=== PATIENT | female | born 1990 | race Asian ===

== ENCOUNTER 2024-03-05 09:45 | Outpatient (REF) | payer OTHER, SELFPAY ==
[2024-03-05 16:47] LABS: Urine Cytology See Pathology rpt
--- OUTSIDE RECORDS SUMMARY | 2024-03-05 17:54 | XMS_ITS | Clinical Summary ---
Author Organization [facility] Address [address] [place] [address] Care Team Providers Care Flight Radio Officer Name Role Phone Keya Bhat NP Primary Care Provider + [phone] Source Comments PLEASE NOTE, if this patient [...] complication, without long-term current use of insulin ([facility]) 1 Each by miscellaneous route every 14 (fourteen) days 2 Kit 12/22/19 23 Active gabapentin (NEURONTIN) 300 mg capsuleIndications :Diabetic mononeuropathy associated with type 2 diabetes mellitus ([facility]) Take 1 Capsule by mouth 3 (three) [...] complication, without long-term current use of insulin ([facility]) Take 1 Tablet by mouth 2 (two) [...] months 06/2022: see at [facility] with , [facility] UTI prevention, imagining to r/o structural abnormalities, recommended then follow up Encounter for gynecological examination with Papanicolaou smear of cervix 03/03/2021 Overview (03/03/2021): PAP DONE 02/28/21 Negative for intraepithelial lesion or malignancy. HPV negative Exposure to COVID-19 virus 03/01/2020 Seasonal allergic rhinitis 07/28/2019 Controlled type 2 diabetes m ellitus without complication, without long-term current use of insulin ([facility]) 09/03/2017 Hematuria and rash 04/26/2017 Overview [...] ) Advise avoid NSAIDs Henoch-Schonlein purpura nephritis ([facility]) 10/2017 Overview (02/13/2017): No tx at this time by rheumatology unless has another flair- see notes in the chart Henoch-Schonlein purpura ([facility]) 01/31/2017 Positive PPD, treated 12/23/2014 Overview (12/23/2014): Pt was treated in [place] with Rifampin for 4 months Dyslipidemia (high LDL; low HDL) 10/13/2014 S/P laparoscopic appendectomy 08/10/2014 Overview (08/10/2014): Done 08/01 at [facility] by Dr Eliazar Nicholson Pap smear [...] Description 01/29/2024 1:20 PM EST Office Visit [facility] [place] [address] Keya Bhat NP Tiwari, Roshni Right middle lobe pulmonary nodule (Primary Dx); Palpitation; Recurrent UTI 01/29/2024 Travel 12/27/2023 10:20 AM EST Telemedicine Visit [place] [address] Keya Bhat NP Tiwari, Roshni Controlled type 2 diabetes mellitus without complication, without long-term current use of insulin ([facility]) (Primary Dx); Dyslipidemia (high LDL; low HDL) 12/18/2023 Interim Notes [facility] [place] [address] Dora Tellez PA-C Controlled type 2 diabetes mellitus without complication, without long-term current use of insulin ([facility]) from Last 3 Months Immunizations Name [...] 06/24/2022 06/24/2012, 06/24/2012, 01/05/2012, Additional history exists [id number] ( season) 2023 01/24/2022, 07/06/2020, 05/31/2020 Imm-Influenza [...] complication, without long-term current use of insulin ([facility]) Dyslipidemia (high LDL; low HDL) MICROALBUMIN/CREATINI NE RATIO, URINE, RANDOM Routine 09/28/2023 4:11 PM EDT Controlled type 2 diabetes mellitus without complication, without long-term current use of insulin ([facility]) EYE EXAM 03/09/2023 3:00 AM EST COMPREHENSIVE METABOLIC PANEL Routine 12/21/2022 4:21 PM EST Controlled type 2 diabetes mellitus without complication, without long-term current use of insulin ([facility]) LIPID PANEL Routine 12/21/2022 4:21 PM [...] A1C 7.6(H) <5.7 % of total Hgb [employer] Comment: For someone without known diabetes, a [...] AM EST 12/31/2023 8:45 AM EST Narrative [facility] [employer] - 01/01/2024 4:20 AM EST FASTING:YES us Keya Bhat NP LAB - BLOOD DRAW Final Resul t [facility] [employer] [address] [place] [address], [employer] [address] [place] [phone] * MICROALBUMIN/CREATININE RATIO, URINE, RANDOM (09/28/2023 4:11 PM EDT) CREATININE, RANDOM URINE 119 20 - 275 mg/dL [employer] MICROALBUMIN 3.5 mg/dL [facility] [employer] Comment: Reference Range Not established MICROALBUMIN/CREA TININE RATIO, RANDOM URINE 29 <30 mg/g creat [employer] Comment: The ADA defines abnormalities in albumin [...] PM EDT 09/28/2023 4:11 PM EDT Narrative [employer] - 10/04/2023 2:37 AM EDT FASTING:NO us Keya Bhat NP LAB - NO BLOOD DRAW Final Re sult [employer] [address] [place] [address], [employer] [address] [phone] * EYE EXAM (03/09/2023 3:00 AM EST) 03/09/2023 3:00 AM EST us Keya Bhat NP OTHER Final Result * (ABNORMAL) LIPID PANEL (12/21/2022 4:21 PM EST) CHOLESTEROL, TOTAL 179 <200 mg/dL [employer] [facility] HDL CHOLESTEROL 40(L) > OR = 50 mg/dL [employer] TRIGLYCERIDES 222(H) <150 mg/dL [employer] Comment: If a non-fasting specimen was collected, consider repeat triglyceride testing on a fasting specimen if clinically indicated. Sloane et al. J. of Clin. Lipidol. 2015;9:129-169. LDL-CHOLESTEROL 105(H) 99 mg/dL (calc) [employer] Comment: Reference range: <100 Desirable range <100 mg/dL for primary prevention; ?? <70 mg/dL for patients with CHD or diabetic patients with > or = 2 CHD risk factors. LDL-C is now calculated using the Quinn calculation, which is a validated novel method providing better accuracy than the Friedewald equation in the estimation of LDL-C. Kings SMITH et al. EMILY. 2013;310(19): 3720-6168 (http://education.[employer]otive/faq/ZSZ550) CHOL/HDLC RATIO 4.5 <5.0 (calc) [employer] NON-HDL CHOLESTEROL 139(H) <130 mg/dL (calc) [employer] Comment: For patients with diabetes plus 1 major ASCVD risk factor, treating to a non-HDL-C goal of <100 mg/dL (LDL-C of <70 mg/dL) is considered a therapeutic option. Blood Blood / Unknown 12/21/2022 4 :21 PM EST 12/21/2022 4:22 PM EST [facility] LAB - BLOOD DRAW Final Result [employer] [address] [place] [address], [employer] [address] [place] [phone] * (ABNORMAL) COMPREHENSIVE METABOLIC PANEL (12/21/2022 4:21 PM EST) Pathologist [facility] GLUCOSE 89 65 - 99 mg/dL [employer] Comment: ?Fasting reference interval UREA NITROGEN (BUN) 10 7 - 25 mg/dL [employer] CREATININE (blood) 0.61 0.50 - 0.97 mg/dL [employer] EGFR 122 > OR = 60 mL/min/1. 73m2 [employer] BUN/CREATININE RATIO SEE NOTE: [employer] Comment: ?? Not Reported: BUN and Creatinine are within ?? reference range. ? SODIUM 136 135 - 146 mmol/L [employer] POTASSIUM 4.3 3.5 - 5.3 mmol/L [employer] CHLORIDE 102 98 - 110 mmol/L [employer] CARBON DIOXIDE 24 20 - 32 mmol/L [employer] CALCIUM 9.7 8.6 - 10.2 mg/dL [employer] PROTEIN, TOTAL 8.1 6.1 - 8.1 g/dL [employer] ALBUMIN 4.4 3.6 - 5.1 g/dL [employer] GLOBULIN 3.7 1.9 - 3.7 g/dL (calc) [employer] ALBUMIN/GLOBULI N RATIO 1.2 1.0 - 2.5 (calc) [employer] BILIRUBIN, TOTAL 0.5 0.2 - 1.2 mg/dL [employer] ALKALINE PHOSPHATASE 65 31 - 125 U/L [employer] AST 37(H) 10 - 30 U/L [employer] ALT 84(H) 6 - 29 U/L [employer] Blood Blood / Unknown 12/21/2022 4 :21 PM EST 12/21/2022 4:22 PM EST [facility] LAB - BLOOD DRAW Edited Result - Final [facility] [address] [address], [employer] [address] [place] [phone] * THINPREP PAP & HPV MRNA E6/E7 RFLX HPV 16,18/[address]/NG (02/28/2021 9:22 AM EST) CHLAMYDIA TRACHOMATIS RNA, TMA NOT DETECTED NOT DETECTED [employer] NEISSERIA GONORRHOEAE RNA, TMA NOT DETECTED NOT DETECTED [employer] COMMENT [employer] CLINICAL INFORMATION See Note [employer] Comment:Routine exam LMP See Note [employer] Comment:[id number] PREV. PAP [employer] PREV. BX See Note [employer] Comment:NONE GIVEN SOURCE See Note [employer] Comment:Cervix STATEMENT OF ADEQUACY See Note [employer] Comment: Satisfactory for evaluation. Endocervical/transformation zone component present. INTERPRETATION/RESU LT See Note [employer] Comment:Negative for intraep ithelial lesion or malignancy. STICK WELDER See Note [facility] Comment: KF, CT(ASCP) CT screening location: [address] ??[address] REVIEW STICK WELDER See Note [employer] Comment: MSM, CT(ASCP) CT screening location: [address] ??[address] COMMENT [facility] HPV MRNA E6/E7 Not Detected Not Detected [facility] Comment: Methodology: Senior Product Manager-Mediated Amplification This assay detects E6/E7 viral messenger RNA (mRNA) from 14 high-risk HPV types (16,18,31,33,35,39,45,51,52,56,58,59,66,68). The analytical performance characteristics of this assay have been determined by [employer]. The modifications have not been cleared or approved by the FDA. This assay has been validated pursuant to the CLIA regulations and is used for clinical purposes. For additional information, please refer to http://Touchbase.Meteor/faq/YSA931p3 (This link if provided for information/ educational purposes only.) CYTOLOGY Cervix uteri structure / Unknown 02/28/2021 9:22 AM EST 03/01/2021 6:25 AM EST Narrative [facility] - 03/03/2021 11:53 AM EST EXPLANATORY [...] test SurePath(TM) specimens have been determined by [employer]. The modifications have not been cleared or approved by the FDA. This assay has been validated pursuant to the CLIA regulations and is used for clinical purposes. For additional information, please refer to https://Touchbase.Meteor/faq/IZH459 (This link is being provided for information/ educational purposes only.) Eli MALDONADO LAB - NO BLOOD DRAW Final R esult [facility] [address] [address], [facility] [address] [address] * HIV-1 & HIV-2 ANTIBODIES (04/01/2019 11:15 AM EST) HIV 1 AND 2 ANTIBODY SCREEN NEGATIVE NEGATIVE [facility] Comment: This assay is a 4th generation [...] AM EST 04/01/2019 11:31 AM EST Narrative [facility] - 04/01/2019 6:50 PM EST [facility] [employer], [place] [address] [employer] Supervisor - Josefina Peterson MD PT ID [id number] ORD# [id number] Eli MALDONADO LAB - BLOOD DRAW Final Resu lt Performing Organization Address City/[facility] de Phone Number [address] [address], * (ABNORMAL) HEPATITIS A,B,C PANEL (10/16/2013 6:38 PM EDT) Pathologist [facility] HEPATITIS B SURFACE ANTIBODY POSITIVE(A) NEGATIVE [facility] HEPATITIS B SURFACE ANTIGEN NEGATIVE NEGATIVE [facility] HEPATITIS C VIRUS ANTIBODY NEGATIVE NEGATIVE [facility] HEPATITIS B CORE ANTIBODY NEGATIVE NEGATIVE [facility] HEPATITIS A ANTIBODY TOTAL POSITIVE(A) NEGATIVE [facility] Blood specimen (specimen) Blood / Unknown 10/16/2013 6:38 PM EDT 10/16/2013 6:57 PM EDT Narrative [facility] - 10/16/2013 10:16 [place] [address] PT ID [id number] ORD# [id number] Fernando Mcbride MD LAB - BLOOD DRAW Edited Result - Final [facility] [address] [place] [address], from Last 3 Months or Most Recently Relevant to Health Maintenance Insurance [employer] Member Subscriber Plan / Payer (Ef fective 2023-Present) Name:PerlaBry garciaa Relation to Subscriber:Self Name:Greta Dove Payer ID:[id number] Group ID:Not on file Type:Indemnity Address: [address] [address] [place] [address] Care Teams Flight Radio Officer Relationship Specialty Start Date End Date Keya Bhat NP [address] [place] [address] PCP - General Internal Medicine 10/04/21
== END 2024-03-05 09:46 | disposition home or self-care (01) ==
LOC: HO.LNP 09:45
PROVIDERS: Visit Provider Nurse Practitioner Family
DX: R10.9 Unspecified abdominal pain (principal); Z13.9 Encounter for screening, unspecified
CPT/HCPCS: 88112

== ENCOUNTER 2024-03-05 09:48 | Outpatient (AMB) | payer OTHER, SELFPAY ==
--- NOTE | 2024-03-05 09:52 | A.OFFVIS_ITS ---
Intake Visit Reasons: Recurrent UTI's Intake Note: New Patient is present for Recurrent UTI/Hematuria Any Urology Med: Antibiotic Allergy: Blood Thinner: PVR: 0ml Pattern Chart Writer Required: No Internal Review And Audit Compliance: Internal Review And Audit Compliance Present Accompanied by: Spouse Allergies No Known Allergies Allergy (Verified 03/05/24 09:53) HPI Comments Details: Greta is a 34-year-old Raquel speaking female patient who was accompanied by her significant other at today's office visit. She has a past medical history of hyperlipidemia type 2 diabetes, seasonal allergies, henoch-schonlein purpura nehritis, and abnormal liver enzymes. She presents to the office today as a new patient for recurrent urinary tract infections as well as bilateral flank pain she has been experiencing. In discussion with the patient and her significant other she reports following up with her PCP for ongoing lower urinary tract symptoms she had been experiencing and has completed multiple antibiotic therapies for urinary tract infections. However she reports never having had urinalysis completed before. She reports symptoms have been present for quite some time. In office urinalysis results reviewed with the patient today. 3+ microscopic hematuria otherwise within normal limits. She does report to be currently on her menses. We discussed at length potential causes of these symptoms patient was experiencing. We discussed obtaining retroperitoneal ultrasound for further assessment evaluation. We discussed importance of management and diabetes for improvement in lower urinary tract symptoms as well as overall health and well-being. We discussed bladder triggers/irritants. She denies nocturia, hematuria, dysuria, foul smelling urine, changes to urinary stream, fever, and or chills. She otherwise offers no other issues or concerns at this time. [facility] Medical History Right middle lobe pulmonary nodule Recurrent UTI Seasonal allergic rhinitis Controlled type 2 diabetes mellitus with complication, without long-term current use of insulin Rash Hematuria Henoch-Schonlein purpura nephritis Positive PPD, treated Dyslipidemia Immune to hepatitis B Abnormal liver enzymes Surgical History History of laparoscopic appendectomy Review of Systems Const All systems reviewed & are unremarkable except as noted in HPI and below Physical Exam Const General: cooperative, healthy appearing, comfortable, no acute distress, well developed, alert and awake Nutritional Appearance: overweight Orientation/consciousness: patient oriented x3 Limitations: no limitations and language barrier HEENT Head: Yes normal to inspection, Yes normocephalic and Yes atraumatic Ears: hearing grossly normal bilaterally Eyes General: appearance normal, both eyes and all related structures Neck Neck: Yes normal visual inspection and Yes trachea midline Chest Chest palpation & inspection: normal inspection of the chest Resp Effort & Inspection: normal respiratory effort and able to speak in complete sentences Cardio Rate: regular rate GI Inspection: Yes normal to inspection General: Yes no CVA tenderness Back/Spine/Pelvis Back: no CVA tenderness Skin General skin exam: no rashes or lesions noted Neuro General: patient oriented x3 Extrem General: Yes normal to inspection Psych Appearance: grossly normal and well kempt Mental Status: mental status grossly normal Speech and movement: Normal speech and movement present and Clear speech present Affect: normal affect Attitude: cooperative Thought process: Normal thought process present Thought content: Normal thought content present Insight: Fair insight present (Psych) Judgement: Fair judgement present (Psych) Office Procedures Post Void Residual Post Residual Void Post Void Residual (PVR): 0 [id number]-[id number] Void Residual by ultrasound Results AMB Urinalysis, Automated UA Leukoctes 0 Spike/uL Last Edit by Jovanna Oliva [facility] on 03/05/24 10:02 UA Nitrite Negative Last Edit by Jovanna Oliva [facility] on 03/05/24 10:02 UA Urobilinogen 0.2 mg/dL Last Edit by Jovanna Oliva [facility] on 03/05/24 10:0 2 UA Protein 15 mg/dL Last Edit by Jovanna Oliva [facility] on 03/05/24 10:02 UA pH 6.0 Last Edit by Jovanna Oliva [facility] on 03/05/24 10:02 UA Blood 200 Nas/uL Last Edit by Jovanna Oliva [facility] on 03/05/24 10:02 UA Specific [place] 1.015 Last Edit by Jovanna Oliva [facility] on 03/05/24 10: 02 UA Ketone Negative Last Edit by Jovanna Oliva [facility] on 03/05/24 10:02 UA Bilirubin 0 mg/dL Last Edit by Jovanna Oliva [facility] on 03/05/24 10:02 UA Glucose 0 mg/dL Last Edit by Jovanna Oliva [facility] on 03/05/24 10:02 Results Reviewed Results Reviewed: Laboratory Last Values Urine pH (Auto) 6.0 03/05/24 09:54 Specific [place] (Auto) 1.015 03/05/24 09:54 Urine Protein (Auto) 15 mg/dL 03/05/24 09:54 Glucose (UA)(Auto) 0 mg/dL 03/05/24 09:54 Urine Ketones (Auto) Negative 03/05/24 09:54 Urine Blood (Auto) 200 Nas/uL 03/05/24 09:54 Urine Nitrite (Auto) Negative 03/05/24 09:54 Urine Bilirubin (Auto) 0 mg/dL 03/05/24 09:54 Urine Urobilinogen (Auto) 0.2 mg/dL 03/05/24 09:54 Leukocyte Esterase (Auto) 0 Spike/uL 03/05/24 09:54 Assessment & Plan Assessment & Plan (1) Flank pain: Code(s): R10.9 - Unspecified abdominal pain Category: Medical (2) Recurrent urinary tract infection: Code(s): N39.0 - Urinary tract infection, site not specified Category: Medical Plan In office urinalysis results reviewed with the patient today; as noted above; w ill send for urine cytology. We discussed importance of adequate hydration relation to lower urinary tract symptoms as well as overall health and well-being. We discussed importance of managing diabetes for improvement lower urinary tract symptoms as well as overall health and well-being. We discussed bladder triggers/irritants. Will obtain retroperitoneal ultrasound for further assessment evaluation. We discussed potential for near future in office cystoscopy for further assessment evaluation. We discussed further treatment options of recurrent urinary tract infections as well as risks and benefits of these interventions. Follow-up in 1-3 months with imaging to be completed prior; or sooner with any issues, concerns, and or questions. Orders: Orders US retroperitoneal comp Today N39.0 - Urinary tract infection, site not specified, R10.9 - Unspecified abdominal pain AMB Urinalysis Automated Today Z13.9 - Encounter for screening, unspecified AMB Post Void Residual by ultrasound Today N39.0 - Urinary tract infection, site not specified Patient Instructions: The patient had an opportunity to ask questions regarding the treatment plan. All questions were answered. Physical exam, labs, and imaging were discussed and reviewed in detail. As well as risks, benefits, and discussion of treatment choices. No major barriers to understanding were identified. The patient expressed understanding and agreement with the above treatment plan. The patient was made aware they should contact our office by phone for worsening of their current condition, the appearance of new symptoms, or with any questions or concerns. Compliance is encouraged with any medications and follow up testing that is ordered. It is a privilege to be allowed the opportunity to participate in? your urological care.? Again, if you have any questions or concerns If you have any questions or concerns please do not hesitate to contact me. The office is [phone]. This note is constructed using voice recognition software. While every effort has been made to ensure accuracy sap developer errors may have been included. Yours sincerely, SARAH Sky Coding Level of Care Code New Pt Level 3 (67706) Diagnoses Flank pain R10.9 Recurrent urinary tract infection N39.0 CPT Codes Post Residual Void - PVR CPT Code: 14403-Brbq Void Residual by ultrasound ([id number])
--- OUTSIDE RECORDS SUMMARY | 2024-03-05 11:34 | XMS_ITS | Clinical Summary ---
Author Organization [facility] Address [address] [place] [address] Care Team Providers Care Fiberglass Finisher Name Role Phone Keya Bhat NP Primary Care Provider + [phone] Source Comments PLEASE NOTE, if this patient is a minor, it may be UNLAWFUL to discuss sensitive information that is contained in these records (such as FAMILY PLANNING, MENTAL HEALTH or SUBSTANCE ABUSE) with the minor patient's parent or other person without the patient's specific authorization.[facility] Allergies No known active allergies Medications blood-glucose meter monitoring kitIndications:Pre diabetes Pt is Diabetic. 73.03 1 Each 06/04/19 19 Active fluticasone propionate (FLONASE) 50 mcg/actuation nasal sprayIndications:S easonal allergic rhinitis, unspecified trigger SPRAY 2 SPRAYS INTO EACH NOSTRIL TWICE DAILY. 48 mL 10/20/19 20 Active loratadine (CLARITIN) 10 mg tabletIndications: Environmental allergies Take 1 Tablet by mouth once daily as needed for allergies 30 Tablet 3 08/04/19 21 Active betamethasone dipropionate (DIPROLENE) 0.05 % ointment APPLY TO LEGS TWICE DAILY FOR 2 WEEKS, BREAK 1 WEEK, REPEAT 04/29/19 22 Active ibuprofen 800 mg tabletIndications: Viral syndrome Take 1 Tablet by mouth 3 (three) times daily as needed for fever, headaches or pain 30 Tablet 07/20/19 22 Active meclizine 25 mg chewable tabletIndications: Dizziness Place 1 Tablet into mouth, chew and swallow 3 (three) times daily as needed for nausea 40 Tablet 08/20/19 22 Active blood sugar diagnostic (FREESTYLE LITE STRIPS) stripsIndications: Prediabetes USE ONCE DAILY TO CHECK BLOOD SUGAR 100 Each 1 12/07/19 23 Active flash glucose sensor (FREESTYLE CHIO 14 DAY SENSOR) kitIndications:Con trolled type 2 diabetes mellitus without complication, without long-term current use of insulin ([facility]) 1 Each by miscellaneous route every 14 (fourteen) days 2 Kit 12/22/19 23 Active gabapentin (NEURONTIN) 300 mg capsuleIndications :Diabetic mononeuropathy associated with type 2 diabetes mellitus ([facility]) Take 1 Capsule by mouth 3 (three) times daily for 30 days 90 Capsule 03/23/19 24 Active minoxidiL (ROGAINE) 2 % external solutionIndication s:Hair loss Apply topically 2 (two) times daily for 30 days Use for 4 month max 60 mL 3 06/22/19 24 Active atorvastatin (LIPITOR) 20 mg tabletIndications: Medication refill Take 1 Tablet by mouth once daily 90 Tablet 1 08/08/19 24 Active levonorgestreL-eth inyl estrad (ALTAVERA, 28,) 0.15-0.03 mg per tabletIndications: Medication refill Take 1 Tablet by mouth once daily 90 Tablet 1 08/08/19 24 Active SITagliptin phos-metformin (JANUMET) 50-1,000 mg per tabletIndications: Controlled type 2 diabetes mellitus without complication, without long-term current use of insulin ([facility]) Take 1 Tablet by mouth 2 (two) times daily with a meal TAKE 1 TABLET BY MOUTH TWICE DAILY WITH FOOD 180 Tablet 3 12/27/19 24 Active metFORMIN (GLUCOPHAGE) 1,000 mg tablet Take 1 Tablet by mouth 2 (two) times daily with a meal 180 Tablet 01/02/20 24 Active Active Problems Problem Noted Date Diagnosed Date Right middle lobe pulmonary nodule 01/29/2024 Overview (01/29/2024): 05/2022: seen on right middle lobe ct scan measuring 4 mm Recurrent UTI 06/22/2022 Overview (07/17/2022): 07/11/22: discussed supportive care with cranberry extract and methenamine. . For urgency and frequency & feelings of incomplete bladder emptying disuccsedded anticholinergics or beta agonist, pt would like to hold off. Reinforced lifestyle. F/U 6 months 06/2022: [facility] with , [facility] UTI prevention, imagining to r/o structural abnormalities, recommended then follow up Encounter for gynecological examination with Papanicolaou smear of cervix 03/03/2021 Overview (03/03/2021): PAP DONE 02/28/21 Negative for intraepithelial lesion or malignancy. HPV negative Exposure to COVID-19 virus 03/01/2020 Seasonal allergic rhinitis 07/28/2019 Controlled type 2 diabetes m ellitus without complication, without long-term current use of insulin ([facility]) 09/03/2017 Hematuria and rash 04/26/2017 Overview (04/27/2017): Renal and transpalnt 04-23-17 Purpuric rash and hematuria, status post renal biopsy, based on the renal biopsy, she has igA domintant glomerulo patite, which is consisitent with mild henochschonlen purpura (HSP) without current inflammatory activity. There was also tubular injury which was moderate with prominent distention of the tubules which could be due to possible urinary tract obstruction/possibility of tubular calcium/phosphate deposition . There was no paraprotein deposition disease and there was no acute interstitial disease , there was no glomerulosclerosis and tubular atrophylinterstitial fibrosis was 10 % without and crescents. Fatigue and rash due to HSP ( HenochSchonlein Purpura and it is mild ) Advise avoid NSAIDs Henoch-Schonlein purpura nephritis ([facility]) 10/2017 Overview (02/13/2017): No tx at this time by rheumatology unless has another flair- see notes in the chart Henoch-Schonlein purpura ([facility]) 01/31/2017 Positive PPD, treated 12/23/2014 Overview (12/23/2014): Pt was treated in [place] with Rifampin for 4 months Dyslipidemia (high LDL; low HDL) 10/13/2014 S/P laparoscopic appendectomy 08/10/2014 Overview (08/10/2014): Done 08/01 at [facility] by Dr Eliazar Nicholson Pap smear for cervical cancer screening 01/17/20 Overview (01/16/2014): 11/20/13: NIL NO ECC's; per guidelines routine screening Next pap due: 11/2016(age 26yr)01/16/14 * pt does have elevated LFT's no etiology yet Immune to hepatitis B 12/25/2013 Overview (12/25/2013): Immune to hep B by blood test 10/16/2013 Abnormal liver enzymes 10/16/2013 Overview (02/03/2014): Had an Ultrasound done on 01/23/2014 Steosis Resolved Problems Problem Noted Date Diagnosed Date Resolved Date Strep pharyngitis 04/04/2017 12/03/2017 Overview (04/04/2017): Positive Encounters Date Type Department Care Team Description 01/29/2024 1:20 PM EST Office [place] [address] Keya Bhat NP Tiwari, Roshni Right middle lobe pulmonary nodule (Primary Dx); Palpitation; Recurrent UTI 01/29/2024 Travel 12/27/2023 10:20 AM EST Telemedicine Visit [facility] [place] [address] Keya Bhat NP Tiwari, Roshni Controlled type 2 diabetes mellitus without complication, without long-term current use of insulin ([facility]) (Primary Dx); Dyslipidemia (high LDL; low HDL) 12/18/2023 Interim [place] [address] Dora Tellez PA-C Controlled type 2 diabetes mellitus without complication, without long-term current use of insulin ([facility]) from Last 3 Months Immunizations Name Administration Dates Next Due Flu, Preservative Free 12/21/2022,2021,11/20/2019,2018,12/03/2017,10/02/2016 Hep B, Adult/Adol (ENERGIX/RECOMBIVAX) 11/24/2013 MODERNA COVID-19 VACCINE BIV ALENT, BLUE CAP, 6M+ 01/24/2022 Moderna COVID-19 Vaccine, re d cap blue label, 12+ Primary Series 07/06/2020,05/31/2020 TDAP 06/24/2012,06/24/2012 Td(adult),2 Lf tetanus toxoid,preservative free 01/05/2012,01/05/2012 Family History Medical History Relation Name Comments Diabetes Mother Hypertension Mother Relation Name Status Comments Brother Alive Father Alive Mother Alive Sister Alive Social History Tobacco Use Types Packs/Day Years Used Date Smoking Tobacco: Never Smokeless Tobacco: Never Tobacco Cessation:Counseling Given: Not Answered Alcohol Use Standard Drinks/Week Comments No 0 (1 standard drink = 0.6 oz pur e alcohol) Social Connections Answer Date Recorded Connectedness 1 01/29/2024 Financial Resource Strain Answer Date R ecorded Financial Resource Strain 1 2023 Stress Answer Date Recorded Stress 1 01/29/2024 Physical Activity Answer Date Recorded Physical Activity 0 09/28/2018 Food Insecurity Answer Date Recorded Food 1 01/29/2024 Transportation Needs Answer Date Record ed Transportation 1 01/29/2024 Housing Stability Answer Date Recorded Housing 1 01/29/2024 Safety and Environment Answer Date Kenn rded Safety 0 08/19/2021 Utilities Answer Date Recorded Utilities 1 01/29/2024 Employment Answer Date Recorded Stress 0 04/25/2021 Comments No Sex and Gender Information Value Date Recorded Sex Assigned at Female 01/16/2017 1:26 PM PST Legal Sex Female 8:46 AM PST Gender Identity Female 01/16/2017 1:26 PM PST Sexual Orientation Straight 01/16/2017 1: 26 PM PST Last Filed Vital Signs Vital Sign Reading Time Taken Comments Blood Pressure 118/78 01/29/2024 9:33 AM EST Pulse 60 01/29/2024 9:33 AM EST Temperature 37.1 ??C (98.8 ??F) 01/29/2024 9:33 AM ES T Respiratory Rate 16 01/29/2024 9:33 AM EST Oxygen Saturation 99% 06/22/2023 3:32 PM EDT Inhaled Oxygen Concentration - - Weight 70.3 kg (155 lb) 10/03/2023 1:20 PM EDT Height 154.9 cm (5' 1 ) 10/03/2023 1:20 PM EDT Body Mass Index 29.29 10/03/2023 1:20 PM EDT Plan of Treatment Health Maintenance Due Date Last Done Comments Dental Examination 1990 HPV Screening 1990 Imm-Pneumococcal (1 of 2 - PCV) 2009 Imm-DTaP/Tdap/Td (3 - Td or Tdap) 06/24/2022 06/24/2012, 06/24/2012, 01/05/2012, Additional history exists [id number] ( season) 2023 01/24/2022, 07/06/2020, 05/31/2020 Imm-Influenza (#1) 2023 12/21/2022, 0 11/04/2021, 11/20/2019, Additional history exists Annual Preventive Care Visit 12/22/2023, 11/03/2021, 10/13/2020, Additional history exists Diabetes Foot Exam 12/22/2023 12/21/2022, 0 04/01/2019, 04/01/2019 Lipid Screening 12/22/2023 12/21/2022, 10/08, 10/18/2020, Additional history exists Relationship Safety Screening/Counseling 12/22/2023 12/21/2022, 08/19/2021, 02/28/2021, Additional history exists Serum Creatinine 12/22/2023 12/21/2022, , 06/23/2021, Additional history exists Alcohol and Drug Screen 02/06/2024 09/24/19, 03/23/2023, 06/16/2022, Additional history exists Depression Annual Screen 02/06/2024 01/29/2024, 07/07 Cervical Cancer Screening 02/29/2024 Pap + HPV 02/29/2024 02/28/2021 Pap Smear 02/29/2024 02/28/2021, 02/06 (Managed by Outside Provider), 11/27/2013, Additional history exists Retinopathy Screening 03/09/2024 03/09/2023, 023 Diabetes HbA1c 04/01/2024 12/31/2023, 08/04/2023, 03/30/2023, Additional history exists Tobacco Screening 06/21/2024 06/22/2023, 05/17/2022 Diabetes Microalbumin (w/Creatinine) 09/27/2024 09/28/2023, 11/17/2020, 04/01/2019 Hypertension Screening (#1) 01/28/2025 Hepatitis C Screening Completed 10/16/2013 Imm-Hepatitis B Discontinued 11/24/2013 HIV Screening Completed 04/01/2019 Cervical Ablation/Cold-Knife Conization Discontinued Cervical Cryotherapy Discontinued Colposcopy Discontinued Endometrial Biopsy Discontinued Excision/Leep Discontinued HPV Genotyping Discontinued Vaginal Pap Discontinued Vulvoscopy Discontinued Procedures Procedure Name Priority Date/Time Associated Diagnosis Comments MEDICATIONS SCANNED DOCUMENT 01/01/2024 3:00 AM EST HEMOGLOBIN GLYCOSYLATED A1C Routine 12/31/2023 8:45 AM EST Controlled type 2 diabetes mellitus without complication, without long-term current use of insulin ([facility]) Dyslipidemia (high LDL; low HDL) MICROALBUMIN/CREATINI NE RATIO, URINE, RANDOM Routine 09/28/2023 4:11 PM EDT Controlled type 2 diabetes mellitus without complication, without long-term current use of insulin ([facility]) EYE EXAM 03/09/2023 3:00 AM EST COMPREHENSIVE METABOLIC PANEL Routine 12/21/2022 4:21 PM EST Controlled type 2 diabetes mellitus without complication, without long-term current use of insulin ([facility]) LIPID PANEL Routine 12/21/2022 4:21 PM EST Dyslipidemia (high LDL; low HDL) THINPREP PAP & HPV MRNA E6/E7 RFLX HPV 16,18/[address]/NG Routine 02/28/2021 9:22 AM EST Encounter for gynecological examination with Papanicolaou smear of cervix ANTIBODY HIV-1&HIV-2 SINGLE RESULT Routine 04/01/2019 11:15 AM EST Encounter for general adult medical examination w/o abnormal findings HEPATITIS A,B,C PANEL Routine 10/16/2013 6:38 PM EDT Abnormal liver enzymes from Last 3 Months or Most Recently Relevant to Health Maintenance Results * MEDICATIONS SCANNED DOCUMENT (01/01/2024 3:00 AM EST) 01/01/2024 3:00 AM EST us Keya Bhat NP SCAN MEDS OTHER ORDERS Final Result * (ABNORMAL) HEMOGLOBIN GLYCOSYLATED A1C (12/31/2023 8:45 AM EST) HEMOGLOBIN A1C 7.6(H) <5.7 % of total Hgb [facility] Comment: For someone without known diabetes, a hemoglobin A1c value of 6.5% or greater indicates that they may have diabetes and this should be confirmed with a follow-up test. For someone with known diabetes, a value <7% indicates that their diabetes is well controlled and a value greater than or equal to 7% indicates suboptimal control. A1c targets should be individualized based on duration of diabetes, age, comorbid conditions, and other considerations. Currently, no consensus exists regarding use of hemoglobin A1c for diagnosis of diabetes for children. ?? Blood Blood / Unknown 12/31/2023 8 :45 AM EST 12/31/2023 8:45 AM EST Narrative [facility] [email or web address] - 01/01/2024 4:20 AM EST FASTING:YES us Keya Bhat NP LAB - BLOOD DRAW Final Resul t [facility] [address] [place] [id number], [facility] [address] [place] [phone] * MICROALBUMIN/CREATININE RATIO, URINE, RANDOM (09/28/2023 4:11 PM EDT) CREATININE, RANDOM URINE 119 20 - 275 mg/dL [facility] MICROALBUMIN 3.5 mg/dL [facility] Comment: Reference Range Not established MICROALBUMIN/CREA TININE RATIO, RANDOM URINE 29 <30 mg/g creat [facility] Comment: The ADA defines abnormalities in albumin excretion as follows: Albuminuria Category ?Result (mg/g creatinine) Normal to Mildly increased ?? <30 Moderately increased ? 30-299 Severely increased ? > OR = 300 The ADA recommends that at least two of three specimens collected within a 3-6 month period be abnormal before considering a patient to be within a diagnostic category. Urine Urine specimen / Unknown 09/28/2023 4:11 PM EDT 09/28/2023 4:11 PM EDT Narrative [facility] - 10/04/2023 2:37 AM EDT FASTING:NO us Keya Bhat NP LAB - NO BLOOD DRAW Final Re sult [facility] [address] [place] [id number], [facility] [address] [address] * EYE EXAM (03/09/2023 3:00 AM EST) 03/09/2023 3:00 AM EST us Keya Bhat NP OTHER Final Result * (ABNORMAL) LIPID PANEL (12/21/2022 4:21 PM EST) CHOLESTEROL, TOTAL 179 <200 mg/dL [facility] HDL CHOLESTEROL 40(L) > OR = 50 mg/dL [facility] TRIGLYCERIDES 222(H) <150 mg/dL [facility] Comment: If a non-fasting specimen was collected, consider repeat triglyceride testing on a fasting specimen if clinically indicated. Sloane et al. J. of Clin. Lipidol. 2015;9:129-169. LDL-CHOLESTEROL 105(H) 99 mg/dL (calc) [facility] Comment: Reference range: <100 Desirable range <100 mg/dL for primary prevention; ?? <70 mg/dL for patients with CHD or diabetic patients with > or = 2 CHD risk factors. LDL-C is now calculated using the Quinn calculation, which is a validated novel method providing better accuracy than the Friedewald equation in the estimation of LDL-C. Kings SMITH et al. EMILY. 2013;310(19): 2739-0724 (http://education.MedicaMetrix/faq/MVX842) CHOL/HDLC RATIO 4.5 <5.0 (calc) [facility] NON-HDL CHOLESTEROL 139(H) <130 mg/dL (calc) [facility] Comment: For patients with diabetes plus 1 major ASCVD risk factor, treating to a non-HDL-C goal of <100 mg/dL (LDL-C of <70 mg/dL) is considered a therapeutic option. Blood Blood / Unknown 12/21/2022 4 :21 PM EST 12/21/2022 4:22 PM EST [facility] - BLOOD DRAW Final Result [facility] [address] [place] [id number], [facility] [address] [place] [phone] * (ABNORMAL) COMPREHENSIVE METABOLIC PANEL (12/21/2022 4:21 PM EST) Pathologist [facility] GLUCOSE 89 65 - 99 mg/dL [facility] Comment: ?Fasting reference interval UREA NITROGEN (BUN) 10 7 - 25 mg/dL [facility] CREATININE (blood) 0.61 0.50 - 0.97 mg/dL [facility] EGFR 122 > OR = 60 mL/min/1. 73m2 [facility] BUN/CREATININE RATIO SEE NOTE: [facility] Comment: ?? Not Reported: BUN and Creatinine are within ?? reference range. ? SODIUM 136 135 - 146 mmol/L [facility] POTASSIUM 4.3 3.5 - 5.3 mmol/L [facility] CHLORIDE 102 98 - 110 mmol/L [facility] CARBON DIOXIDE 24 20 - 32 mmol/L [facility] CALCIUM 9.7 8.6 - 10.2 mg/dL [facility] PROTEIN, TOTAL 8.1 6.1 - 8.1 g/dL [facility] ALBUMIN 4.4 3.6 - 5.1 g/dL [facility] GLOBULIN 3.7 1.9 - 3.7 g/dL (calc) [facility] ALBUMIN/GLOBULI N RATIO 1.2 1.0 - 2.5 (calc) [facility] BILIRUBIN, TOTAL 0.5 0.2 - 1.2 mg/dL [facility] ALKALINE PHOSPHATASE 65 31 - 125 U/L [facility] AST 37(H) 10 - 30 U/L [facility] ALT 84(H) 6 - 29 U/L [facility] Blood Blood / Unknown 12/21/2022 4 :21 PM EST 12/21/2022 4:22 PM EST [facility] - BLOOD DRAW Edited Result - Final [facility] [address] [address], [facility] [address] [place] [phone] * THINPREP PAP & HPV MRNA E6/E7 RFLX HPV 16,18/[address]/NG (02/28/2021 9:22 AM EST) CHLAMYDIA TRACHOMATIS RNA, TMA NOT DETECTED NOT DETECTED [facility] NEISSERIA GONORRHOEAE RNA, TMA NOT DETECTED NOT DETECTED [facility] COMMENT [facility] CLINICAL INFORMATION See Note [facility] Comment:Routine exam LMP See Note [facility] Comment:[id number] PREV. PAP [facility] PREV. BX See Note [facility] Comment:NONE GIVEN SOURCE See Note [facility] Comment:Cervix STATEMENT OF ADEQUACY See Note [facility] Comment: Satisfactory for evaluation. Endocervical/transformation zone component present. INTERPRETATION/RESU LT See Note [facility] Comment:Negative for intraep ithelial lesion or malignancy. ALBERENE STONE SETTER See Note [employer] Comment: KF, CT(ASCP) CT screening location: [address] ??[address] REVIEW ALBERENE STONE SETTER See Note [facility] Comment: MSM, CT(ASCP) CT screening location: [address] ??[address] COMMENT [employer] [facility] HPV MRNA E6/E7 Not Detected Not Detected [employer] [facility] Comment: Methodology: Prosthetics Technician-Mediated Amplification This assay detects E6/E7 viral messenger RNA (mRNA) from 14 high-risk HPV types (16,18,31,33,35,39,45,51,52,56,58,59,66,68). The analytical performance characteristics of this assay have been determined by [employer]. The modifications have not been cleared or approved by the FDA. This assay has been validated pursuant to the CLIA regulations and is used for clinical purposes. For additional information, please refer to http://[employer]/faq/MYE718g9 (This link if provided for information/ educational purposes only.) CYTOLOGY Cervix uteri structure / Unknown 02/28/2021 9:22 AM EST 03/01/2021 6:25 AM EST Narrative [employer] [facility] - 03/03/2021 11:53 AM EST EXPLANATORY NOTE: The Pap is a screening test for cervical cancer. It is not a diagnostic test and is subject to false negative and false positive results. It is most reliable when a satisfactory sample, regularly obtained, is submitted with relevant clinical findings and history, and when the Pap result is evaluated along with historic and current clinical information. The analytical performance characteristics of this assay, when used to test SurePath(TM) specimens have been determined by [employer]. The modifications have not been cleared or approved by the FDA. This assay has been validated pursuant to the CLIA regulations and is used for clinical purposes. For additional information, please refer to https://[employer]/faq/JGM126 (This link is being provided for information/ educational purposes only.) Eli MALDONADO LAB - NO BLOOD DRAW Final R esult [employer] [address] [address], [employer] [address] [address] * HIV-1 & HIV-2 ANTIBODIES (04/01/2019 11:15 AM EST) HIV 1 AND 2 ANTIBODY SCREEN NEGATIVE NEGATIVE [facility] Comment: This assay is a 4th generation assay allowing for earlier detection of HIV infection by detecting the presence of the HIV-1 p24 antigen as well as the traditional antibodies to HIV type 1 (including group O) and type 2. ??Use of a 4th generation assay is the current CDC recommendation for HIV screening. Blood specimen (specimen) Blood / Unknown 04/01/2019 11:15 AM EST 04/01/2019 11:31 AM EST Narrative [facility] - 04/01/2019 6:50 PM EST [facility] [employer] [place] [address] Freezer Person - Josefina Peterson MD PT ID [id number] ORD# [id number] Eli MALDONADO LAB - BLOOD DRAW Final Resu lt Performing Organization Address City/[facility] de Phone Number [address] [address], * (ABNORMAL) HEPATITIS A,B,C PANEL (10/16/2013 6:38 PM EDT) Pathologist [facility] HEPATITIS B SURFACE ANTIBODY POSITIVE(A) NEGATIVE [facility] HEPATITIS B SURFACE ANTIGEN NEGATIVE NEGATIVE [facility] HEPATITIS C VIRUS ANTIBODY NEGATIVE NEGATIVE [facility] HEPATITIS B CORE ANTIBODY NEGATIVE NEGATIVE [facility] HEPATITIS A ANTIBODY TOTAL POSITIVE(A) NEGATIVE [facility] Blood specimen (specimen) Blood / Unknown 10/16/2013 6:38 PM EDT 10/16/2013 6:57 PM EDT Narrative [facility] - 10/16/2013 10:16 [place] [address] PT ID [id number] ORD# [id number] Fernando Mcbride MD LAB - BLOOD DRAW Edited Result - Final [facility] [address] [place] [address], from Last 3 Months or Most Recently Relevant to Health Maintenance Insurance [employer] Member Subscriber Plan / Payer (Ef fective 2023-Present) Name:PerlaBry garciaa Relation to Subscriber:Self Name:Greta Dove Payer ID:[id number] Group ID:Not on file Type:Indemnity Address: [address] [address] [place] [address] Care Teams Fiberglass Finisher Relationship Specialty Start Date End Date Keya Bhat NP [address] [place] [address] PCP - General Internal Medicine 10/04/21
== END 2024-03-05 10:18 | disposition home or self-care (01) ==
PROVIDERS: Visit Provider Nurse Practitioner Family
DX: R10.9 Unspecified abdominal pain (principal); N39.0 Urinary tract infection, site not specified; Z13.9 Encounter for screening, unspecified
CPT/HCPCS: 99203

== ENCOUNTER 2024-03-05 09:48 | Outpatient (REF) | payer OTHER, SELFPAY ==
--- OUTSIDE RECORDS SUMMARY | 2024-03-05 14:01 | XMS_ITS | Clinical Summary ---
Author Organization [facility] Address [address] [place] [address] Care Team Providers Care Earth Mover Name Role Phone Keya Bhat NP Primary Care Provider + [phone] Source Comments PLEASE NOTE, if this patient [...] months 06/2022: see at [facility] with , [facility] UTI prevention, imagining to r/o structural abnormalities, recommended then follow up Encounter for gynecological examination with Papanicolaou smear of cervix 03/03/2021 Overview (03/03/2021): PAP DONE 02/28/21 Negative for intraepithelial lesion or malignancy. HPV negative Exposure to COVID-19 virus 03/01/2020 Seasonal allergic rhinitis 07/28/2019 Controlled type 2 diabetes m ellitus without complication, without long-term current use of insulin ([facility]) 09/03/2017 Hematuria and rash 04/26/2017 Overview (04/27/2017): [...] in the chart Henoch-Schonlein purpura ([facility]) 01/31/2017 Positive PPD, treated 12/23/2014 Overview (12/23/2014): [place] Rifampin for 4 months Dyslipidemia (high LDL; low HDL) 10/13/2014 S/P laparoscopic appendectomy 08/10/2014 Overview (08/10/2014): Done 08/01 at [facility] by Dr Eliazar Nicholson Pap smear for [...] Description 01/29/2024 1:20 PM EST Office Visit [facility] [place] [address] Keya Bhat NP Tiwari, Roshni Right middle lobe pulmonary nodule (Primary Dx); Palpitation; Recurrent UTI 01/29/2024 Travel 12/27/2023 10:20 AM EST Telemedicine Visit [facility] [place] [address] Keya Bhat NP Tiwari, Roshni Controlled type 2 diabetes mellitus without complication, without long-term current use of insulin ([facility]) (Primary Dx); Dyslipidemia (high LDL; low HDL) 12/18/2023 Interim Notes [facility] [place] [address] Dora Tellez PA-C Controlled type 2 diabetes mellitus without complication, without long-term current use of insulin ([facility]) from Last 3 Months Immunizations Name Administration [...] 06/24/2022 06/24/2012, 06/24/2012, 01/05/2012, Additional history exists [id number] ( season) 2023 01/24/2022, 07/06/2020, 05/31/2020 Imm-Influenza [...] complication, without long-term current use of insulin ([facility]) Dyslipidemia (high LDL; low HDL) MICROALBUMIN/CREATINI NE RATIO, URINE, RANDOM Routine 09/28/2023 4:11 PM EDT Controlled type 2 diabetes mellitus without complication, without long-term current use of insulin ([facility]) EYE EXAM 03/09/2023 3:00 AM EST COMPREHENSIVE METABOLIC PANEL Routine 12/21/2022 4:21 PM EST Controlled type 2 diabetes mellitus without complication, without long-term current use of insulin ([facility]) LIPID PANEL Routine 12/21/2022 4:21 PM EST [...] A1C 7.6(H) <5.7 % of total Hgb [facility] Comment: For someone without known diabetes, a [...] AM EST 12/31/2023 8:45 AM EST Narrative [facility] [employer] - 01/01/2024 4:20 AM EST FASTING:YES us Keya Bhat NP LAB - BLOOD DRAW Final Resul t [facility] [employer] [address] [place] [address], [facility] [address] [place] [phone] * MICROALBUMIN/CREATININE RATIO, URINE, RANDOM (09/28/2023 4:11 PM EDT) CREATININE, RANDOM URINE 119 20 - 275 mg/dL [facility] MICROALBUMIN 3.5 mg/dL [facility] [employer] Comment: Reference Range Not established MICROALBUMIN/CREA TININE RATIO, RANDOM URINE 29 <30 mg/g creat [facility] Comment: The ADA defines abnormalities in albumin [...] PM EDT 09/28/2023 4:11 PM EDT Narrative [employer] - 10/04/2023 2:37 AM EDT FASTING:NO us Keya Bhat NP LAB - NO BLOOD DRAW Final Re sult [employer] [address] [place] [address], [employer] [employer] [address] [address] * EYE EXAM (03/09/2023 3:00 AM EST) 03/09/2023 3:00 AM EST us Keya Bhat NP OTHER Final Result * (ABNORMAL) LIPID PANEL (12/21/2022 4:21 PM EST) CHOLESTEROL, TOTAL 179 <200 mg/dL [facility] HDL CHOLESTEROL 40(L) > OR = 50 mg/dL [facility] TRIGLYCERIDES 222(H) <150 mg/dL [facility] Comment: If a non-fasting specimen was collected, consider repeat triglyceride testing on a fasting specimen if clinically indicated. Sloane et al. J. of Clin. Lipidol. 2015;9:129-169. LDL-CHOLESTEROL 105(H) 99 mg/dL (calc) [facility] Comment: Reference range: <100 Desirable range <100 mg/dL for primary prevention; ?? <70 mg/dL for patients with CHD or diabetic patients with > or = 2 CHD risk factors. LDL-C is now calculated using the Quinn calculation, which is a validated novel method providing better accuracy than the Friedewald equation in the estimation of LDL-C. Kings SMITH et al. EMILY. 2013;310(19): 3970-9269 (http://education.Mobisante/faq/BOT528) CHOL/HDLC RATIO 4.5 <5.0 (calc) [facility] NON-HDL CHOLESTEROL 139(H) <130 mg/dL (calc) [facility] Comment: For patients with diabetes plus 1 major ASCVD risk factor, treating to a non-HDL-C goal of <100 mg/dL (LDL-C of <70 mg/dL) is considered a therapeutic option. Blood Blood / Unknown 12/21/2022 4 :21 PM EST 12/21/2022 4:22 PM EST Charmaine DOTY LAB - BLOOD DRAW Final Result [employer] [address] [place] [address], [facility] [address] [place] [phone] * (ABNORMAL) COMPREHENSIVE METABOLIC PANEL (12/21/2022 4:21 PM EST) Pathologist [facility] GLUCOSE 89 65 - 99 mg/dL [facility] Comment: ?Fasting reference interval UREA NITROGEN (BUN) 10 7 - 25 mg/dL [facility] CREATININE (blood) 0.61 0.50 - 0.97 mg/dL [facility] EGFR 122 > OR = 60 mL/min/1. 73m2 [facility] BUN/CREATININE RATIO SEE NOTE: [facility] Comment: ?? Not Reported: BUN and Creatinine are within ?? reference range. ? SODIUM 136 135 - 146 mmol/L [facility] POTASSIUM 4.3 3.5 - 5.3 mmol/L [facility] CHLORIDE 102 98 - 110 mmol/L [facility] CARBON DIOXIDE 24 20 - 32 mmol/L [facility] CALCIUM 9.7 8.6 - 10.2 mg/dL [facility] PROTEIN, TOTAL 8.1 6.1 - 8.1 g/dL [facility] ALBUMIN 4.4 3.6 - 5.1 g/dL [facility] GLOBULIN 3.7 1.9 - 3.7 g/dL (calc) [facility] ALBUMIN/GLOBULI N RATIO 1.2 1.0 - 2.5 (calc) [facility] BILIRUBIN, TOTAL 0.5 0.2 - 1.2 mg/dL [facility] ALKALINE PHOSPHATASE 65 31 - 125 U/L [facility] AST 37(H) 10 - 30 U/L [facility] ALT 84(H) 6 - 29 U/L [facility] Blood Blood / Unknown 12/21/2022 4 :21 PM EST 12/21/2022 4:22 PM EST [facility] LAB - BLOOD DRAW Edited Result - Final [employer] [address] [address], [facility] [address] [place] [phone] * THINPREP PAP & HPV MRNA E6/E7 RFLX HPV 16,18/[address]/NG (02/28/2021 9:22 AM EST) CHLAMYDIA TRACHOMATIS RNA, TMA NOT DETECTED NOT DETECTED [facility] NEISSERIA GONORRHOEAE RNA, TMA NOT DETECTED NOT DETECTED [facility] COMMENT [facility] CLINICAL INFORMATION See Note [facility] Comment:Routine exam LMP See Note [facility] Comment:[id number] PREV. PAP [facility] PREV. BX See Note [facility] Comment:NONE GIVEN SOURCE See Note [facility] Comment:Cervix STATEMENT OF ADEQUACY See Note [facility] Comment: Satisfactory for evaluation. Endocervical/transformation zone component present. INTERPRETATION/RESU LT See Note [facility] Comment:Negative for intraep ithelial lesion or malignancy. FLOWER PLANTER See Note [employer] Comment: KF, CT(ASCP) CT screening location: [address] ??[address] REVIEW FLOWER PLANTER See Note [facility] Comment: MSM, CT(ASCP) CT screening location: [address] ??[address] COMMENT [facility] HPV MRNA E6/E7 Not Detected Not Detected [employer] Comment: Methodology: Brusher Operator-Mediated Amplification This assay detects E6/E7 viral messenger RNA (mRNA) from 14 high-risk HPV types (16,18,31,33,35,39,45,51,52,56,58,59,66,68). The analytical performance characteristics of this assay have been determined by [employer]. The modifications have not been cleared or approved by the FDA. This assay has been validated pursuant to the CLIA regulations and is used for clinical purposes. For additional information, please refer to http://Viva Vision.Del Taco/faq/JRZ360e7 (This link if provided for information/ educational purposes only.) CYTOLOGY Cervix uteri structure / Unknown 02/28/2021 9:22 AM EST 03/01/2021 6:25 AM EST Narrative [facility] - 03/03/2021 11:53 AM EST EXPLANATORY [...] test SurePath(TM) specimens have been determined by [employer]. The modifications have not been cleared or approved by the FDA. This assay has been validated pursuant to the CLIA regulations and is used for clinical purposes. For additional information, please refer to https://Viva Vision.Del Taco/faq/PSR452 (This link is being provided for information/ educational purposes only.) Eli MALDONADO LAB - NO BLOOD DRAW Final R esult [employer] [address] [address], [employer] [address] [address] * HIV-1 & HIV-2 ANTIBODIES (04/01/2019 11:15 AM EST) HIV 1 AND 2 ANTIBODY SCREEN NEGATIVE NEGATIVE [facility] Comment: This assay is a 4th generation [...] AM EST 04/01/2019 11:31 AM EST Narrative [facility] - 04/01/2019 6:50 PM EST [facility] [employer], [place] [address] Inhalation Therapy Teacher - Josefina Peterson MD PT ID [id number] ORD# [id number] Eli MALDONADO LAB - BLOOD DRAW Final Resu lt Performing Organization Address City/[facility] de Phone Number [address] [address], * (ABNORMAL) HEPATITIS A,B,C PANEL (10/16/2013 6:38 PM EDT) Pathologist [facility] HEPATITIS B SURFACE ANTIBODY POSITIVE(A) NEGATIVE [facility] HEPATITIS B SURFACE ANTIGEN NEGATIVE NEGATIVE [facility] HEPATITIS C VIRUS ANTIBODY NEGATIVE NEGATIVE [facility] HEPATITIS B CORE ANTIBODY NEGATIVE NEGATIVE [facility] HEPATITIS A ANTIBODY TOTAL POSITIVE(A) NEGATIVE [facility] Blood specimen (specimen) Blood / Unknown 10/16/2013 6:38 PM EDT 10/16/2013 6:57 PM EDT Narrative [facility] - 10/16/2013 10:16 [place] [address] PT ID [id number] ORD# [id number] Fernando Mcbride MD LAB - BLOOD DRAW Edited Result - Final [facility] [address] [place] [address], from Last 3 Months or Most Recently Relevant to Health Maintenance Insurance [employer] Member Subscriber Plan / Payer (Ef fective 2023-Present) Name:PerlaBry garciaa Relation to Subscriber:Self Name:Greta Dove Payer ID:[id number] Group ID:Not on file Type:Indemnity Address: [address] [address] [place] [address] Care Teams Earth Mover Relationship Specialty Start Date End Date Keya Bhat NP [address] [place] [address] PCP - General Internal Medicine 10/04/21
== END 2024-03-05 09:49 | disposition home or self-care (01) ==
LOC: HO.LAB 09:48
PROVIDERS: Visit Provider Nurse Practitioner Family
DX: R10.9 Unspecified abdominal pain (principal); N39.0 Urinary tract infection, site not specified
CPT/HCPCS: 51798; 81003; 99202

== ENCOUNTER 2024-05-19 10:09 | Outpatient (REF) | payer OTHER, SELFPAY ==
--- NOTE | ~2024-05-19 | US_ITS ---
CLINICAL HISTORY: N39.0 - Urinary tract infection, site not specified US Renal Comparison: None Findings: Right kidney normal size and echotexture, 11.7 cm length. There is a 2.9 cm cyst within the right kidney. Left kidney normal size and echotexture, 11.0 cm length. There is a 5 mm calculus within the lower pole of the left kidney. There is a 3 mm calculus within the midportion of the left kidney. Mild hydronephrosis of the left kidney. Normal color Doppler. Urinary bladder is unremarkable. Prevoid volume 951 mL. Postvoid volume 312 mL. Bilateral ureteral jets are visualized. IMPRESSION: 1. Mild hydronephrosis of the left kidney. 2. There are 2 small calculi within the left kidney. 3. Distended urinary bladder with moderate postvoid residual. This document has been electronically signed by: Cristina Cool MD on 05/19/2024 14:48:18
--- OUTSIDE RECORDS SUMMARY | 2024-05-19 11:32 | XMS_ITS | Clinical Summary ---
Author Organization [facility] Address [address] [place] [address] Care Team Providers Care Steamer Blocker Name Role Phone Keya Bhat NP Primary Care Provider + [phone] Source Comments PLEASE NOTE, if this patient is a minor, it may be UNLAWFUL to discuss sensitive information that is contained in these records (such as FAMILY PLANNING, MENTAL HEALTH or SUBSTANCE ABUSE) with the minor patient's parent or other person without the patient's specific authorization.[facility] Allergies No known active allergies Medications blood-glucose meter monitoring kitIndications:Pr ediabetes Pt is Diabetic. 73.03 1 Each 019 Active loratadine (CLARITIN) 10 mg tabletIndications :Environmental allergies Take 1 Tablet by mouth once daily as needed for allergies 30 Tablet 3 021 Active betamethasone dipropionate (DIPROLENE) 0.05 % ointment APPLY TO LEGS TWICE DAILY FOR 2 WEEKS, BREAK 1 WEEK, REPEAT 022 Active blood sugar diagnostic (FREESTYLE LITE STRIPS) stripsIndications :Prediabetes USE ONCE DAILY TO CHECK BLOOD SUGAR 100 Each 1 023 Active flash glucose sensor (FREESTYLE CHIO 14 DAY SENSOR) kitIndications:Co ntrolled type 2 diabetes mellitus without complication, without long-term current use of insulin (HCC-CMS) 1 Each by miscellaneous route every 14 (fourteen) days 2 Kit 023 Active gabapentin (NEURONTIN) 300 mg capsuleIndication s:Diabetic mononeuropathy associated with type 2 diabetes mellitus (HCC-CMS) Take 1 Capsule by mouth 3 (three) times daily for 30 days 90 Capsule 024 Active minoxidiL (ROGAINE) 2 % external solutionIndicatio ns:Hair loss Apply topically 2 (two) times daily for 30 days Use for 4 month max 60 mL 3 024 Active SITagliptin phos-metformin (JANUMET) 50-1,000 mg per tabletIndications :Controlled type 2 diabetes mellitus without complication, without long-term current use of insulin ([facility]) Take 1 Tablet by mouth 2 (two) times daily with a meal TAKE 1 TABLET BY MOUTH TWICE DAILY WITH FOOD 180 Tablet 3 024 Active oxymetazoline (AFRIN SINUS, OXYMETAZOLINE,) 0.05 % nasal sprayIndications: Viral upper respiratory tract infection Place 2 Sprays into the nostril(s) 2 (two) times daily 15 mL 025 Active benzonatate (TESSALON) 200 mg capsuleIndication s:Viral upper respiratory tract infection Take 1 Capsule by mouth 3 (three) times daily as needed for cough 30 Capsule 025 Active metFORMIN (GLUCOPHAGE) 1,000 mg tablet TAKE 1 TABLET BY MOUTH TWICE A DAY WITH A MEAL 180 Tablet 3 025 Active atorvastatin (LIPITOR) 20 mg tabletIndications :Medication refill Take 1 Tablet by mouth once daily 90 Tablet 1 025 Active meclizine 25 mg chewable tabletIndications :Dizziness Place 1 Tablet into mouth, chew and swallow 3 (three) times daily as needed for dizziness 40 Tablet 025 Active ibuprofen 600 mg tabletIndications :Viral upper respiratory tract infection TAKE 1 TABLET BY MOUTH THREE TIMES A DAY NEEDED FOR PAIN 90 Tablet 025 Active ALTAVERA, 28, 0.15-0.03 mg per tabletIndications :Medication refill TAKE 1 TABLET BY MOUTH EVERY DAY 84 Tablet 3 025 Active polyethylene glycol, PEG, 3350 (GLYCOLAX) 17 gram/dose powderIndications :Constipation, unspecified constipation type Take 17 g by mouth once daily 510 g 025 Active levonorgestreL-et hinyl estrad (ALTAVERA, 28,) 0.15-0.03 mg per tabletIndications :Medication refill Take 1 Tablet by mouth once daily 90 Tablet 1 024 2024 Discontinued ibuprofen 600 mg tabletIndications :Viral upper respiratory tract infection Take 1 Tablet by mouth 3 (three) times daily as needed for pain 90 Tablet 025 2024 Discontinued Active Problems Problem Noted Date Diagnosed Date Diabetic mononeuropathy asso ciated with type 2 diabetes mellitus ([facility]) 05/07/2024 Palpitations 05/07/2024 Assessment & Plan (05/07/2024 9:25 AM EDT): 05/07/24: sinus with sinus tach seen on holter monitor History of Holter monitoring 05/03/2024 Overview (05/03/2024): 04/10/24-04/23/24 Holter Monitor 1. Underlying Rhythm Sinus with sinus tachycardia 2. Max Sinus HR 164 min Sinus HR 75 3. Afib burden 0% 4. Atrial Flutter burden 0% 5. Pause > 2.5 sec= 0 6. PVC= 2 7. PAC= 58 8. AV Blocks = none 9. Patient marker count=0 10. Diary= none Right middle lobe pulmonary nodule 01/29/2024 Overview [...] months 06/2022: see at [facility] with , [facility] UTI prevention, imagining to r/o structural abnormalities, recommended then follow up Encounter for gynecological examination with Papanicolaou smear of cervix 03/03/2021 Overview (03/03/2021): PAP DONE 02/28/21 Negative for intraepithelial lesion or malignancy. HPV negative Exposure to COVID-19 virus 03/01/2020 Seasonal allergic rhinitis 07/28/2019 Controlled type 2 diabetes m ellitus without complication, without long-term current use of insulin ([facility]) 09/03/2017 Hematuria and rash 04/26/2017 Overview (04/27/2017): [...] ) Advise avoid NSAIDs Henoch-Schonlein purpura nephritis ([facility] V24 ) 02/13/2017 Overview (02/13/2017): No tx at this time by rheumatology unless has another flair- see notes in the chart Henoch-Schonlein purpura ([facility] V24) 02/01/20 17 Positive PPD, treated 12/23/2014 Overview (12/23/2014): [place] Rifamp[place] for 4 months Dyslipidemia (high LDL; low HDL) 10/13/2014 S/P laparoscopic appendectomy 08/10/2014 Overview (08/10/2014): Done 08/[address] [facility] by Dr Eliazar Nicholson Pap smear for cervical cancer screening 01/17/20 14 Overview (01/16/2014): 11/20/13: NIL NO ECC's; per [...] Encounters Date Type Department Care Team Description 05/07/2024 9:00 AM EDT Office Visit [address] [address] Keya Bhat NP Tiwari, Roshni Recurrent UTI (Primary Dx); Palpitations; Right middle lobe pulmonary nodule; Constipation, unspecified constipation type; Diabetic mononeuropathy associated with type 2 diabetes mellitus ([facility]); Well woman exam 04/10/2024 4:00 PM EST Office Visit [address] [address] Nellie Major NP Other chest pain (Primary Dx); Medication refill; Dizziness; Lethargy 03/21/2024 1:20 PM EST Office Visit [address] [address] Jean Paul Mendoza PA-C Tiwari, Roshni Viral upper respiratory tract infection (Primary Dx); Fever, unspecified fever cause; Non-Ukrainian speaking patient from Last 3 Months Immunizations Immunization Administration Dates Next Due Flu, Preservative Free 12/21/2022,2021,11/20/2019,2018,12/03/2017,10/02/2016 Hep B, Adult/Adol (ENERGIX/RECOMBIVAX) 11/24/2013 MODERNA COVID-19 VACCINE BIV ALENT, BLUE CAP, 6M+ 01/24/2022 Moderna COVID-19 Vaccine, re d cap blue label, 12+ Primary Series 07/06/2020,05/31/2020 PNEUMOCOCCAL CONJUGATE PCV 2 0 (Prevnar) 05/07/2024 TDAP 05/07/2024,06/24/2012,06/24/2012 Td(adult),2 Lf tetanus toxoid,preservative free 01/05/2012,01/05/2012 Family [...] Social Connections Answer Date Recorded Connectedness 1 05/07/2024 Financial Resource Strain Answer Date R ecorded Financial Resource Strain 1 2024 Stress Answer Date Recorded Stress 1 05/07/2024 Physical Activity Answer Date Recorded Physical Activity 0 09/28/2018 Food Insecurity Answer Date Recorded Food 1 05/07/2024 Transportation Needs Answer Date Record ed Transportation 1 05/07/2024 Housing Stability Answer Date Recorded Housing 1 05/07/2024 Safety and Environment Answer Date Kenn rded Safety 1 05/07/2024 Utilities Answer Date Recorded Utilities 1 05/07/2024 Employment Answer Date Recorded Stress 0 04/25/2021 Comments No Sex and Gender Information Value Date Recorded Sex Assigned at Female 01/16/2017 1:26 PM PST Legal Sex Female 8:46 AM PST Gender Identity Female 01/16/2017 1:26 PM PST Sexual Orientation Straight 01/16/2017 1: 26 PM PST Last Filed Vital Signs Vital Sign Reading Time Taken Comments Blood Pressure 114/78 05/07/2024 9:00 AM EDT Pulse 92 05/07/2024 9:00 AM EDT Temperature 36.6 ??C (97.9 ??F) 05/07/2024 9:00 AM ED T Respiratory Rate 18 05/07/2024 9:00 AM EDT Oxygen Saturation 99% 05/07/2024 9:00 AM EDT Inhaled Oxygen Concentration - - Weight 69 kg (152 lb 3.2 oz) 05/07/2024 9:00 AM EDT Height 154.9 cm (5' 1 ) 04/10/2024 4:03 PM EST Body Mass Index 28.76 04/10/2024 4:03 PM EST Plan of Treatment Upcoming Encounters Date Type Department Care Team (Late st Contact Info) Description 05/28/2024 9:00 AM EDT Office Visit [address] [place] [address] Terry Couch MD [address] [place] [address] Toni Orlygeni [address] [place] [address] Health Maintenance Due Date Last Done Comments Dental Examination 1990 HPV Screening 1990 [id number] ( season) 2023 01/24/2022, 07/06/2020, 05/31/2020 Imm-Influenza (#1) 2023 12/21/2022, 0 11/04/2021, 11/20/2019, Additional history exists Annual Preventive Care Visit 12/22/2023 12/21/2022, 11/03/2021, 10/13/2020, Additional history exists Diabetes Foot Exam 12/22/2023 12/21/2022, 0 04/01/2019, 04/01/2019 Lipid Screening 12/22/2023 12/21/2022, 10/08, 10/18/2020, Additional history exists Serum Creatinine 12/22/2023 12/21/2022, , 06/23/2021, Additional history exists Pap + HPV 02/29/2024 02/28/2021 Pap Smear 02/29/2024 02/28/2021, 02/06 (Managed by Outside Provider), 11/27/2013, Additional history exists Retinopathy Screening 03/09/2024 03/09/2023, 023 Diabetes HbA1c 04/01/2024 12/31/2023, 09/06, 03/30/2023, Additional history exists Tobacco Screening 06/21/2024 06/22/2023, 05/17/2022 Cervical Cancer Screening 08/06/2024 Po stponed from 1990 (Pending outside records) Urine Albumin Creatinine Ratio Screening 09/27/2024 09/28/2023, 11/17/2020, 04/01/2019 Anxiety Screening 05/07/2025 05/07/2024 Hypertension Screening (#1) 05/07/2025 Relationship Safety Screening/Counseling 05/07/2025 05/07/2024, 12/21/2022, 08/19/2021, Additional history exists Imm-DTaP/Tdap/Td (4 - Td or Tdap) 05/07/2034 05/07/2024, 06/24/2012, 06/24/2012, Additional history exists Hepatitis C Screening Completed 10/16/2013 Imm-Hepatitis B Discontinued 11/24/2013 HIV Screening Completed 04/01/2019 Alcohol and Drug Screen Completed 05/08/19, 09/24/2023, 03/23/2023, Additional history exists Depression Annual Screen Completed 05/07/2024, 07/07 Imm-Pneumococcal Completed 05/07/2024 Cervical Ablation/Cold-Knife Conization Discontinued Cervical Cryotherapy Discontinued Colposcopy Discontinued Endometrial Biopsy Discontinued Excision/Leep Discontinued HPV Genotyping Discontinued Vaginal Pap Discontinued Vulvoscopy Discontinued Procedures Procedure Name Priority Date/Time Associated Diagnosis Comments CARD SCANNED DOCUMENT 04/23/2024 3:00 AM EDT ASSAY OF FERRITIN Routine 04/10/2024 5:0 2 PM EST Lethargy BLOOD COUNT COMPLETE AUTO&AUTO DIFRNTL WBC Routine 04/10/2024 5:02 PM EST Lethargy CARD SCANNED DOCUMENT 04/04/2024 3:00 AM EST COVID-19, ID NOW, WILSON (POCT) Routine 03/21/2024 1:51 PM EST Fever, unspecified fever cause INFLUENZA A AND B, ALERE (POCT) Routine 03/21/2024 1:51 PM EST Fever, unspecified fever cause ID NOW STREP A2 (POCT) Routine 03/21/2024 1:51 PM EST Fever, unspecified fever cause HEMOGLOBIN GLYCOSYLATED A1C Routine 12/31/2023 8:45 AM EST Controlled type 2 diabetes mellitus without complication, without long-term current use of insulin ([facility]) Dyslipidemia (high LDL; low HDL) MICROALBUMIN/CREATINI NE RATIO, URINE, RANDOM Routine 09/28/2023 4:11 PM EDT Controlled type 2 diabetes mellitus without complication, without long-term current use of insulin ([facility]) EYE EXAM 03/09/2023 3:00 AM EST COMPREHENSIVE METABOLIC PANEL Routine 12/21/2022 4:21 PM EST Controlled type 2 diabetes mellitus without complication, without long-term current use of insulin ([facility]) LIPID PANEL Routine 12/21/2022 4:21 [...] Recently Relevant to Health Maintenance Results * CARD SCANNED DOCUMENT (04/23/2024 3:00 AM EDT) Only the most recent of2 resultswithin the time period is included. 04/23/2024 3:00 AM EDT us Tallon Tomasi METAL BUMPER SCAN ECGS Final Result * (ABNORMAL) BLOOD COUNT COMPLETE AUTO&AUTO DIFRNTL WBC (04/10/2024 5:02 PM EST) WHITE BLOOD CELL COUNT 8.5 3.8 - 10.8 Thousand/ uL [facility] RED BLOOD CELL COUNT 5.03 3.80 - 5.10 Million/u L [facility] HEMOGLOBIN 12.3 11.7 - 15.5 g/dL [facility] HEMATOCRIT 38.8 35.0 - 45.0 % [facility] [place] [employer] MCV 77.1(L) 80.0 - 100.0 fL [facility] [place] [facility] MCH 24.5(L) 27.0 - 33.0 pg [facility] MCHC 31.7(L) 32.0 - 36.0 g/dL [facility] Comment: For adults, a slight decrease in the calculated MCHC value (in the range of 30 to 32 g/dL) is most likely not clinically significant; however, it should be interpreted with caution in correlation with other red cell parameters and the patient's clinical condition. RDW 12.7 11.0 - 15.0 % [facility] PLATELET COUNT 399 140 - 400 Thousand/ uL [facility] [place] [facility] MPV 11.4 7.5 - 12.5 fL [facility] ABSOLUTE NEUTROPHILS 4,182 1,500 - 7,800 cells/uL [facility] ABSOLUTE LYMPHOCYTES 3,290 850 - 3,900 cells/uL [facility] ABSOLUTE MONOCYTES 799 200 - 950 cells/uL [facility] ABSOLUTE EOSINOPHILS 187 15 - 500 cells/uL [facility] ABSOLUTE BASOPHILS 43 0 - 200 cells/uL [facility] NEUTROPHILS PCT 49.2 % [employer] [employer] [facility] LYMPHOCYTES 38.7 % [facility] MONOCYTES 9.4 % [facility] EOSINOPHILS 2.2 % [facility] BASOPHILS 0.5 % [facility] Blood Blood / Unknown 04/10/2024 5 :02 PM EST 04/10/2024 5:03 PM EST Narrative [facility] - 04/11/2024 6:52 AM EST FASTING:NO us Nellie Major NP LAB - BLOOD DRAW Edited Result - Final [facility] [address] [address], [facility] [address] [place] [address] * ASSAY OF FERRITIN (04/10/2024 5:02 PM EST) FERRITIN 108 16 - 154 ng/mL [facility] Blood Blood / Unknown 04/10/2024 5 :02 PM EST 04/10/2024 5:03 PM EST Narrative [facility] - 04/11/2024 6:52 AM EST FASTING:NO Nellie Major METAL BUMPER LAB - BLOOD DRAW Final Result Performing Organization Address City/[facility]/ZIP Co de Phone Number [facility] [address] [address], [facility] [address] [address] * (ABNORMAL) INFLUENZA A AND B, ALERE (POCT) (03/21/2024 1:51 PM EST) INFLUENZA A NEGATIVE NEGATIVE [facility] POCT INFLUENZA B POSITIVE(A) NEGATIVE [facility] POCT INTERNAL CONTROL PASS PASS [facility] POCT NASAL Nasal structure / Unknown 03/21/2024 1:51 PM EST Jean Paul Child PA-C LAB - NO BLOOD DRAW Final Res ult Performing Organization Address City/[facility]/ZIP Co de Phone Number [facility] POCT * COVID-19, ID NOW, WILSON (POCT) (03/21/2024 1:51 PM EST) Pathologist [facility] COVID-19 NEGATIVE NEGATIVE [facility] POCT INTERNAL CONTROL PASS PASS [facility] POCT Swab Nasal structure / Unknown 03/21/2024 1:51 PM EST Jean Paul Child PA-C LAB - NO BLOOD DRAW Final Res ult [facility] PO[facility] * ID NOW STREP A2 (POCT) (03/21/2024 1:51 PM EST) STREP A NEGATIVE NEGATIVE [facility] POCT INTERNAL CONTROL PASS PASS [facility] POCT Swab Structure of anterior portion of neck / Unknown 03/21/2024 1:51 PM EST Jean Paul Mendoza PA-C LAB - NO BLOOD DRAW Final Res ult [facility] POCT * (ABNORMAL) HEMOGLOBIN GLYCOSYLATED A1C (12/31/2023 8:45 AM EST) HEMOGLOBIN A1C 7.6(H) <5.7 % of total Hgb [facility] Comment: For someone without known diabetes, a [...] AM EST 12/31/2023 8:45 AM EST Narrative [employer] - 01/01/2024 4:20 AM EST FASTING:YES Keya Bhat NP LAB - BLOOD DRAW Final Resul t Performing Organization Address City/[facility] Co de Phone Number [facility] [address] [place] [address], [facility] [address] [address] * MICROALBUMIN/CREATININE RATIO, URINE, RANDOM (09/28/2023 4:11 PM EDT) CREATININE, RANDOM URINE 119 20 - 275 mg/dL [facility] MICROALBUMIN 3.5 mg/dL [employer] Comment: Reference Range Not established MICROALBUMIN/CREA TININE RATIO, RANDOM URINE 29 <30 mg/g creat [facility] Comment: The ADA defines abnormalities in albumin [...] PM EDT 09/28/2023 4:11 PM EDT Narrative [facility] - 10/04/2023 2:37 AM EDT FASTING:NO us Keya Bhat NP LAB - NO BLOOD DRAW Final Re sult [facility] [address] [address], [facility] [address] [place] [address] * EYE EXAM (03/09/2023 3:00 AM EST) 03/09/2023 3:00 AM EST us Keya Bhat NP OTHER Final Result * (ABNORMAL) LIPID PANEL (12/21/2022 4:21 PM EST) CHOLESTEROL, TOTAL 179 <200 mg/dL [facility] HDL CHOLESTEROL 40(L) > OR = 50 mg/dL [facility] TRIGLYCERIDES 222(H) <150 mg/dL [facility] Comment: If a non-fasting specimen was collected, consider repeat triglyceride testing on a fasting specimen if clinically indicated. Sloane et al. J. of Clin. Lipidol. 2015;9:129-169. LDL-CHOLESTEROL 105(H) 99 mg/dL (calc) [facility] Comment: Reference range: <100 Desirable range <100 mg/dL for primary prevention; ?? <70 mg/dL for patients with CHD or diabetic patients with > or = 2 CHD risk factors. LDL-C is now calculated using the Quinn calculation, which is a validated novel method providing better accuracy than the Friedewald equation in the estimation of LDL-C. Kings SMITH et al. EMILY. 2013;310(19): 1011-4186 (http://education.[employer].SYSTRAN/faq/DTD780) CHOL/HDLC RATIO 4.5 <5.0 (calc) [facility] NON-HDL CHOLESTEROL 139(H) <130 mg/dL (calc) [facility] Comment: For patients with diabetes plus 1 major ASCVD risk factor, treating to a non-HDL-C goal of <100 mg/dL (LDL-C of <70 mg/dL) is considered a therapeutic option. Blood Blood / Unknown 12/21/2022 4 :21 PM EST 12/21/2022 4:22 PM EST Charm[facility] DOTY LAB - BLOOD DRAW Final Result [facility] [address] [address], [facility] [address] [address] * (ABNORMAL) COMPREHENSIVE METABOLIC PANEL (12/21/2022 4:21 PM EST) Pathologist [facility] GLUCOSE 89 65 - 99 mg/dL [facility] Comment: ?Fasting reference interval UREA NITROGEN (BUN) 10 7 - 25 mg/dL [facility] CREATININE (blood) 0.61 0.50 - 0.97 mg/dL [facility] EGFR 122 > OR = 60 mL/min/1. 73m2 [facility] BUN/CREATININE RATIO SEE NOTE: [facility] Comment: ?? Not Reported: BUN and Creatinine are within ?? reference range. ? SODIUM 136 135 - 146 mmol/L [facility] POTASSIUM 4.3 3.5 - 5.3 mmol/L [facility] CHLORIDE 102 98 - 110 mmol/L [facility] CARBON DIOXIDE 24 20 - 32 mmol/L [facility] CALCIUM 9.7 8.6 - 10.2 mg/dL [facility] PROTEIN, TOTAL 8.1 6.1 - 8.1 g/dL [facility] ALBUMIN 4.4 3.6 - 5.1 g/dL [facility] GLOBULIN 3.7 1.9 - 3.7 g/dL (calc) [facility] ALBUMIN/GLOBULI N RATIO 1.2 1.0 - 2.5 (calc) [facility] BILIRUBIN, TOTAL 0.5 0.2 - 1.2 mg/dL [facility] ALKALINE PHOSPHATASE 65 31 - 125 U/L [facility] AST 37(H) 10 - 30 U/L [facility] ALT 84(H) 6 - 29 U/L [facility] Blood Blood / Unknown 12/21/2022 4 :21 PM EST 12/21/2022 4:22 PM EST [facility] LAB - BLOOD DRAW Edited Result - Final [facility] [address] [address], [facility] [address] [place] [address] * THINPREP PAP & HPV MRNA E6/E7 RFLX HPV 16,18/[address]/NG (02/28/2021 9:22 AM EST) CHLAMYDIA TRACHOMATIS RNA, TMA NOT DETECTED NOT DETECTED [facility] NEISSERIA GONORRHOEAE RNA, TMA NOT DETECTED NOT DETECTED [facility] COMMENT [facility] CLINICAL INFORMATION See Note [facility] Comment:Routine exam LMP See Note [facility] Comment:[id number] PREV. PAP [facility] PREV. BX See Note [facility] Comment:NONE GIVEN SOURCE See Note [facility] Comment:Cervix STATEMENT OF ADEQUACY See Note [facility] Comment: Satisfactory for evaluation. Endocervical/transformation zone component present. INTERPRETATION/RESU LT See Note [facility] Comment:Negative for intraep ithelial lesion or malignancy. LABORER WHARF See Note [facility] [place] Comment: KF, CT(ASCP) CT screening location: [address] ??[address] REVIEW LABORER WHARF See Note [facility] Comment: MSM, CT(ASCP) CT screening location: [address] ??[address] COMMENT [facility] HPV MRNA E6/E7 Not Detected Not Detected [facility] Comment: Methodology: Practice Or Student Teacher-Mediated Amplification This assay detects E6/E7 viral messenger RNA (mRNA) from 14 high-risk HPV types (16,18,31,33,35,39,45,51,52,56,58,59,66,68). The analytical performance characteristics of this assay have been determined by [employer]. The modifications have not been cleared or approved by the FDA. This assay has been validated pursuant to the CLIA regulations and is used for clinical purposes. For additional information, please refer to http://[employer]ner[employer]/faq/PXB826y7 (This link if provided for information/ educational purposes only.) CYTOLOGY Cervix uteri structure / Unknown 02/28/2021 9:22 AM EST 03/01/2021 6:25 AM EST Narrative [facility] - 03/03/2021 11:53 AM EST EXPLANATORY NOTE: [...] test SurePath(TM) specimens have been determined by [employer]. The modifications have not been cleared or approved by the FDA. This assay has been validated pursuant to the CLIA regulations and is used for clinical purposes. For additional information, please refer to https://[employer]/faq/NDG314 (This link is being provided for information/ educational purposes only.) Eli Torre [facility] LAB - NO BLOOD DRAW Final R esult [facility] [address] [facility] [address] [place] [address], [facility] [address] [address] * HIV-1 & HIV-2 ANTIBODIES (04/01/2019 11:15 AM EST) [facility] HIV 1 AND 2 ANTIBODY SCREEN NEGATIVE NEGATIVE [facility] Comment: This assay is [...] 11:15 AM EST 04/01/2019 11:31 AM EST [facility] - 04/01/2019 6:50 PM EST [employer], a member of [address] [address] Junior Staff Accountant - Josefina Peterson MD PT ID [id number] ORD# [id number] Eli MALDONADO LAB - BLOOD DRAW Final Resu lt Performing Organization Address City/[facility]/ZIP Co de Phone Number [address] [address], * (ABNORMAL) HEPATITIS A,B,C PANEL (10/16/2013 6:38 PM EDT) HEPATITIS B SURFACE ANTIBODY POSITIVE(A) NEGATIVE [facility] HEPATITIS B SURFACE ANTIGEN NEGATIVE NEGATIVE [facility] HEPATITIS C VIRUS ANTIBODY NEGATIVE NEGATIVE [facility] HEPATITIS B CORE ANTIBODY NEGATIVE NEGATIVE [facility] HEPATITIS A ANTIBODY TOTAL POSITIVE(A) NEGATIVE [facility] Blood specimen (specimen) Blood / Unknown 10/16/2013 6:38 PM EDT 10/16/2013 6:57 PM EDT [facility] - 10/16/2013 10:16 PM EDT [employer] [address] [place] [address] PT ID [id number] ORD# [id number] Fernando Mcbride MD LAB - BLOOD DRAW Edited Result - Final Performing Organization Address City/[facility]/ZIP Co de Phone Number [address] [address], [place] [phone] from Last 3 Months or Most Recently Relevant to Health Maintenance Insurance [employer] Member Subscriber Plan / Payer (Ef fective 2023-Present) Name:Greta Dove Relation to Subscriber:Self Name:Greta Dove Payer ID:[id number] Group ID:Not on file Type:[employer]emnireza Address: [facility] [address] [place] [address] Care Teams Steamer Blocker Relationship Specialty Start Date End Date Keya Bhat NP [address] [place] [address] PCP - General Internal Medicine 10/04/21
== END 2024-05-19 10:10 | disposition home or self-care (01) ==
LOC: HO.US 10:09
PROVIDERS: Visit Provider Nurse Practitioner Family
DX: N39.0 Urinary tract infection, site not specified (principal); R10.9 Unspecified abdominal pain
CPT/HCPCS: 76770

== ENCOUNTER → 2024-05-19 10:12 | Outpatient (BNV) | payer OTHER, SELFPAY | PROVIDERS: Visit Provider Radiology Diagnostic Radiology | DX: N28.1 Cyst of kidney, acquired (principal); R33.8 Other retention of urine | CPT/HCPCS: 76770 ==

== ENCOUNTER 2024-06-05 09:21 | Outpatient (REF) | payer OTHER, SELFPAY ==
--- OUTSIDE RECORDS SUMMARY | 2024-06-05 11:09 | XMS_ITS | Clinical Summary ---
Author Organization [facility] Address [address] [place] [address] Care Team Providers Care Lab Pack Chemist Name Role Phone Keya Bhat NP Primary Care Provider + [phone] Source Comments PLEASE NOTE, if this patient [...] without long-term current use of insulin ([facility]) Take 1 Tablet by mouth 2 (two) [...] asso ciated with type 2 diabetes mellitus ([facility]) 05/07/2024 Palpitations 05/07/2024 Assessment & Plan [...] months 06/2022: [facility] UTI prevention, imagining to r/o structural abnormalities, recommended then follow up Encounter for gynecological examination with Papanicolaou smear of cervix 03/03/2021 Overview (03/03/2021): PAP DONE 02/28/21 Negative for intraepithelial lesion or malignancy. HPV negative Exposure to COVID-19 virus 03/01/2020 Seasonal allergic rhinitis 07/28/2019 Controlled type 2 diabetes m ellitus without complication, without long-term current use of insulin ([facility]) 09/03/2017 Hematuria and rash 04/26/2017 Overview [...] 12/23/2014 Overview (12/23/2014): Pt was treated in [place] with Rifampin for 4 months Dyslipidemia (high LDL; low HDL) 10/13/2014 S/P laparoscopic appendectomy 08/10/2014 Overview (08/10/2014): Done 08/01 at [facility] by Dr Eliazar Nicholson Pap smear [...] Description 05/28/2024 9:00 AM EDT Office Visit [facility] [address] [place] [phone] Terry Couch MD Tiwari, Roshni Screening for HPV (human papillomavirus) (Primary Dx); Encounter for other general counseling and advice on contraception 05/07/2024 9:00 AM EDT Office Visit [address] [phone] Keya Bhat NP Tiwari, Roshni Recurrent UTI (Primary Dx); Palpitations; Right middle lobe pulmonary nodule; Constipation, unspecified constipation type; Diabetic mononeuropathy associated with type 2 diabetes mellitus ([facility]); Well woman exam 04/10/2024 4:00 PM EST Office Visit [address] [phone] Nellie Major NP Other chest pain (Primary Dx); Medication refill; Dizziness; Lethargy 03/21/2024 1:20 PM EST Office Visit [address] [phone] Jean Paul Mendoza PA-C Tiwari, Roshni Viral upper respiratory tract infection (Primary Dx); Fever, unspecified fever cause; Non-Kinyarwanda speaking patient from Last 3 Months Immunizations [...] Comments Dental Examination 1990 HPV Screening 1990 [id number] ( season) 2023 01/24/2022, 07/06/2020, 05/31/2020 Imm-Influenza [...] without long-term current use of insulin ([facility]) Dyslipidemia (high LDL; low HDL) MICROALBUMIN/CREATININ E RATIO, URINE, RANDOM Routine 09/28/2023 4:11 PM EDT Controlled type 2 diabetes mellitus without complication, without long-term current use of insulin ([facility]) EYE EXAM 03/09/2023 3:00 AM EST COMPREHENSIVE METABOLIC PANEL Routine 12/21/2022 4:21 PM EST Controlled type 2 diabetes mellitus without complication, without long-term current use of insulin ([facility]) LIPID PANEL Routine 12/21/2022 4:21 PM [...] TRACHOMATIS RNA, TMA NOT DETECTED NOT DETECTED [employer] NEISSERIA GONORRHOEAE RNA, TMA NOT DETECTED NOT DETECTED [employer] COMMENT [employer] CLINICAL INFORMATION See Note [employer] Comment:None given LMP See Note [employer] Comment:NONE GIVEN PREV. PAP See Note [employer] Comment:NONE GIVEN PREV. BX See Note [employer] Comment:NONE GIVEN SOURCE See Note [employer] Comment:Cervix STATEMENT OF ADEQUACY See Note [employer] Comment: Satisfactory for evaluation. Endocervical/transformation zone component present. INTERPRETATION/RESU LT See Note [employer] Comment: Cytology Results: Negative for intraepithelial lesion or malignancy. COMMENT See Note [employer] Comment: This Pap test has been evaluated with computer assisted technology. INSTRUCTOR WATCH ASSEMBLY See Note Hyphen 8 Comment: CMG, CT(ASCP) CT screening location: [address] ??[address] COMMENT [employer] HPV MRNA E6/E7 Not Detected Not Detected [employer] Comment: Methodology: Embalmer Assistant-Mediated Amplification This assay detects E6/E7 viral messenger RNA (mRNA) from 14 high-risk HPV types (16,18,31,33,35,39,45,51,52,56,58,59,66,68). Cervical sources are required for HPV testing. If a vaginal source from a patient who has had a total hysterectomy with removal of cervix was submitted, please contact the testing laboratory for alternative testing options. For additional information, please refer to http://MyWants.[employer]/faq/DZO983r1 (This link if provided for information/ educational [...] test SurePath(TM) specimens have been determined by [facility]. The modifications have not been cleared or approved by the FDA. This assay has been validated pursuant to the CLIA regulations and is used for clinical purposes. For additional information, please refer to https://MyWants.[employer]/faq/UNJ348 (This link is being provided for information/ educational purposes only.) Terry Couch MD LAB - NO BLOOD DRAW Final Resul t [facility] [address] [address], [facility] [address] [address] * CARD SCANNED DOCUMENT (04/23/2024 3:00 AM EDT) Only the most recent of2 resultswithin the time period is included. 04/23/2024 3:00 AM EDT Tallon Tomasi [employer] YOU[employer] SUPERVISOR SCAN ECGS Final Result * (ABNORMAL) BLOOD COUNT COMPLETE AUTO&AUTO DIFRNTL WBC (04/10/2024 5:02 PM EST) [facility] WHITE BLOOD CELL COUNT 8.5 3.8 - 10.8 Thousand/ uL [facility] RED BLOOD CELL COUNT 5.03 3.80 - 5.10 Million/u L [facility] HEMOGLOBIN 12.3 11.7 - 15.5 g/dL [facility] HEMATOCRIT 38.8 35.0 - 45.0 % [facility] MCV 77.1(L) 80.0 - 100.0 fL [facility] MCH 24.5(L) 27.0 - 33.0 pg [facility] MCHC 31.7(L) 32.0 - 36.0 g/dL [facility] Comment: For adults, a slight decrease in the calculated MCHC value (in the range of 30 to 32 g/dL) is most likely not clinically significant; however, it should be interpreted with caution in correlation with other red cell parameters and the patient's clinical condition. RDW 12.7 11.0 - 15.0 % [facility] PLATELET COUNT 399 140 - 400 Thousand/ uL [facility] MPV 11.4 7.5 - 12.5 fL [facility] ABSOLUTE NEUTROPHILS 4,182 1,500 - 7,800 cells/uL [facility] ABSOLUTE LYMPHOCYTES 3,290 850 - 3,900 cells/uL [facility] ABSOLUTE MONOCYTES 799 200 - 950 cells/uL [facility] ABSOLUTE EOSINOPHILS 187 15 - 500 cells/uL [facility] ABSOLUTE BASOPHILS 43 0 - 200 cells/uL [facility] NEUTROPHILS PCT 49.2 % [employer] [facility] LYMPHOCYTES 38.7 % [facility] [email or web address] [facility] MONOCYTES 9.4 % [facility] [employer] [facility] EOSINOPHILS 2.2 % [facility] [employer] [facility] BASOPHILS 0.5 % [facility] [employer]odic [facility] Blood Blood / Unknown 04/10/2024 5 :02 PM EST 04/10/2024 5:03 PM EST Narrative [facility] - 04/11/2024 6:52 AM EST FASTING:NO us Nellie Major NP LAB - BLOOD DRAW Edited Result - Final [facility] [address] [address], [facility] [address] [address] * ASSAY OF FERRITIN (04/10/2024 5:02 PM EST) [facility] FERRITIN 108 16 - 154 ng/mL [facility] Blood Blood / Unknown 04/10/2024 5 :02 PM EST 04/10/2024 5:03 PM EST Narrative [facility] - 04/11/2024 6:52 AM EST FASTING:NO Nellie Major [employer]PER[employer] LAB - BLOOD DRAW Final Result [facility] [address] [address], [facility] [address] [address] * (ABNORMAL) INFLUENZA A AND B, ALERE (POCT) (03/21/2024 1:51 PM EST) [facility] INFLUENZA A NEGATIVE NEGATIVE [facility] POCT INFLUENZA B POSITIVE(A) NEGATIVE [facility] POCT INTERNAL CONTROL PASS PASS [facility] POCT NASAL Nasal structure / Unknown 03/21/2024 1:51 PM EST Jean Paul VANC LAB - NO BLOOD DRAW Final Res ult [facility] POCT * COVID-19, ID NOW, WILSON (POCT) (03/21/2024 1:51 PM EST) [facility] COVID-19 NEGATIVE NEGATIVE [facility] POCT INTERNAL CONTROL PASS PASS [facility] POCT Swab Nasal structure / Unknown 03/21/2024 1:51 PM EST Jean Paul DOTY-C LAB - NO BLOOD DRAW Final Res ult [facility] POCT * ID NOW STREP A2 (POCT) (03/21/2024 1:51 PM EST) STREP A NEGATIVE NEGATIVE [facility] POCT INTERNAL CONTROL PASS PASS [facility] POCT Swab Structure of anterior portion of neck / Unknown 03/21/2024 1:51 PM EST Jean Paul Child PA-C LAB - NO BLOOD DRAW Final Res ult Performing Organization Address City/[facility]/ZIP Co de Phone Number [facility] POCT * (ABNORMAL) HEMOGLOBIN GLYCOSYLATED A1C (12/31/2023 8:45 AM EST) HEMOGLOBIN A1C 7.6(H) <5.7 % of total Hgb [employer] Comment: For someone without known diabetes, a [...] AM EST 12/31/2023 8:45 AM EST Narrative [employer] [facility] - 01/01/2024 4:20 AM EST FASTING:YES Keya Bhat NP LAB - BLOOD DRAW Final Resul t Performing Organization Address City/[facility]/ZIP Co de Phone Number [employer] [address] [place] [phone], [employer] [address] [place] [phone] * MICROALBUMIN/CREATININE RATIO, URINE, RANDOM (09/28/2023 4:11 PM EDT) CREATININE, RANDOM URINE 119 20 - 275 mg/dL [employer] MICROALBUMIN 3.5 mg/dL [facility] Comment: Reference Range Not established MICROALBUMIN/CREA TININE RATIO, RANDOM URINE 29 <30 mg/g creat [facility] Comment: The ADA defines abnormalities in albumin [...] PM EDT 09/28/2023 4:11 PM EDT Narrative [employer] - 10/04/2023 2:37 AM EDT FASTING:NO us Keya Bhat NP LAB - NO BLOOD DRAW Final Re sult [employer] [address] [place] [phone], [employer] [address] [address] * EYE EXAM (03/09/2023 3:00 AM EST) 03/09/2023 3:00 AM EST us Keya Bhat NP OTHER Final Result * (ABNORMAL) LIPID PANEL (12/21/2022 4:21 PM EST) CHOLESTEROL, TOTAL 179 <200 mg/dL [facility] HDL CHOLESTEROL 40(L) > OR = 50 mg/dL [employer] TRIGLYCERIDES 222(H) <150 mg/dL [employer] Comment: If a non-fasting specimen was collected, consider repeat triglyceride testing on a fasting specimen if clinically indicated. Sloane et al. J. of Clin. Lipidol. 2015;9:129-169. LDL-CHOLESTEROL 105(H) 99 mg/dL (calc) [employer] Comment: Reference range: <100 Desirable range <100 mg/dL for primary prevention; ?? <70 mg/dL for patients with CHD or diabetic patients with > or = 2 CHD risk factors. LDL-C is now calculated using the Kings-Hewitt calculation, which is a validated novel method providing better accuracy than the Friedewald equation in the estimation of LDL-C. Kings SS et al. EMILY. 2013;310(19): 0101-2115 (http://education.[employer]/faq/DJF844) CHOL/HDLC RATIO 4.5 <5.0 (calc) [employer] NON-HDL CHOLESTEROL 139(H) <130 mg/dL (calc) [employer] Comment: For patients with diabetes plus 1 major ASCVD risk factor, treating to a non-HDL-C goal of <100 mg/dL (LDL-C of <70 mg/dL) is considered a therapeutic option. Blood Blood / Unknown 12/21/2022 4 :21 PM EST 12/21/2022 4:22 PM EST Charmaine DOTY LAB - BLOOD DRAW Final Result [employer] [address] [place] [address], [employer] [address] [place] [phone] * (ABNORMAL) COMPREHENSIVE METABOLIC PANEL (12/21/2022 4:21 PM EST) [facility] GLUCOSE 89 65 - 99 mg/dL [employer] Comment: ?Fasting reference interval UREA NITROGEN (BUN) 10 7 - 25 mg/dL [employer] CREATININE (blood) 0.61 0.50 - 0.97 mg/dL [employer] EGFR 122 > OR = 60 mL/min/1. 73m2 [employer] BUN/CREATININE RATIO SEE NOTE: [employer] Comment: ?? Not Reported: BUN and Creatinine are within ?? reference range. ? SODIUM 136 135 - 146 mmol/L [employer] POTASSIUM 4.3 3.5 - 5.3 mmol/L [employer] CHLORIDE 102 98 - 110 mmol/L [employer] CARBON DIOXIDE 24 20 - 32 mmol/L [employer] CALCIUM 9.7 8.6 - 10.2 mg/dL [employer] PROTEIN, TOTAL 8.1 6.1 - 8.1 g/dL [employer] ALBUMIN 4.4 3.6 - 5.1 g/dL [facility] GLOBULIN 3.7 1.9 - 3.7 g/dL (calc) [facility] ALBUMIN/GLOBULI N RATIO 1.2 1.0 - 2.5 (calc) [facility] BILIRUBIN, TOTAL 0.5 0.2 - 1.2 mg/dL [facility] ALKALINE PHOSPHATASE 65 31 - 125 U/L [facility] AST 37(H) 10 - 30 U/L [facility] ALT 84(H) 6 - 29 U/L [facility] Blood Blood / Unknown 12/21/2022 4 :21 PM EST 12/21/2022 4:22 PM EST Charmaine DOTY LAB - BLOOD DRAW Edited Result - Final Performing Organization Address City/[facility] Co de Phone Number [facility] [address] [address], [facility] [address] [phone] * HIV-1 & HIV-2 ANTIBODIES (04/01/2019 11:15 AM EST) [facility] HIV 1 AND 2 ANTIBODY SCREEN NEGATIVE NEGATIVE [facility] [employer] [facility] Comment: This assay is a 4th generation [...] AM EST 04/01/2019 11:31 AM EST Narrative [facility] - 04/01/2019 6:50 PM EST [employer], a member of [address] [address] Market Research Assistant - Josefina Peterson MD PT ID [id number] ORD# [id number] Eli MALDONADO LAB - BLOOD DRAW Final Resu lt Performing Organization Address City/[facility]/ZIP Co de Phone Number [facility] [employer] [place] [address], [place] [phone] * (ABNORMAL) HEPATITIS A,B,C PANEL (10/16/2013 6:38 PM EDT) HEPATITIS B SURFACE ANTIBODY POSITIVE(A) NEGATIVE [facility] HEPATITIS B SURFACE ANTIGEN NEGATIVE NEGATIVE [facility] HEPATITIS C VIRUS ANTIBODY NEGATIVE NEGATIVE [facility] HEPATITIS B CORE ANTIBODY NEGATIVE NEGATIVE [facility] HEPATITIS A ANTIBODY TOTAL POSITIVE(A) NEGATIVE [facility] Blood specimen (specimen) Blood / Unknown 10/16/2013 6:38 PM EDT 10/16/2013 6:57 PM EDT Narrative [facility] - 10/16/2013 10:16 PM EDT [facility] [address] [place] [address] PT ID [id number] ORD# [id number] us Fernando Mcbride MD LAB - BLOOD DRAW Edited Result - Final [facility] [address] [place] [address], [place] [phone] from Last 3 Months or Most Recently Relevant to Health Maintenance Insurance [employer] Member Subscriber Plan / Payer (Ef fective 2023-Present) Name:Greta Dove Relation to Subscriber:Self Name:Greta Dove Payer ID:[id number] Group ID:Not on file Type:Indemnity Address: [facility] [address] [place] [address] Care Teams Lab Pack Chemist Relationship Specialty Start Date End Date Keya Bhat NP [address] [place] [address] PCP - General Internal Medicine 10/04/21
[2024-06-05 16:24] LABS: Urine Cytology See Pathology rpt
== END 2024-06-05 09:22 | disposition home or self-care (01) ==
LOC: HO.LNP 09:21
PROVIDERS: Visit Provider Nurse Practitioner Family
DX: N20.0 Calculus of kidney (principal); R10.9 Unspecified abdominal pain; N39.0 Urinary tract infection, site not specified; N13.30 Unspecified hydronephrosis
CPT/HCPCS: 51798; 81003; 88112; 99212

== ENCOUNTER 2024-06-05 09:21 | Outpatient (AMB) | payer OTHER, SELFPAY ==
--- NOTE | 2024-06-05 09:23 | A.OFFVIS_ITS ---
Intake Visit Reasons: 3m/US(set) Intake Note: Patient presents today for follow up on: recurrent uti and ultrasound results Imaging Completed: 05/19/24 Urology Medications: none Antibiotic Allergy: none Blood Thinner: none PVR: Etl Developer Required: No Accompanied by: Spouse Allergies No Known Allergies Allergy (Verified 06/05/24 10:29) Medication List - Last Reconciled 06/05/24 by SARAH Sky atorvastatin mg PO DAILY gabapentin 300 mg PO TID levonorgestrel-ethinyl estrad 0.15-0.03 mg (Altavera (28)) tabs PO DAILY sitagliptin phos-metformin 50-1,000 mg (Janumet) tabs PO HPI Comments Details: Greta is a 34-year-old Raquel speaking female patient who was accompanied by her significant other at today's office visit. She has a past medical history of hyperlipidemia type 2 diabetes, seasonal allergies, henoch-schonlein purpura nehritis, and abnormal liver enzymes. She presents to the office today for follow-up. Of note, patient was seen approximately 3 months ago as a new patient for recurrent urinary tract infections as well as bilateral flank pain she has been experiencing at which time a retroperitoneal ultrasound was ordered for further assessment evaluation. The patient's urine was also sent for urine cytology during last office visit. These results were reviewed and communicated with the patient and her significant other today. Retroperitoneal ultrasound 05/30 bilateral kidneys are normal in size and echotexture. 2.9 cm cyst within the right kidney. Left kidney with 2 nonobstructing renal calculi measuring 5 mm in 3 mm. Mild hydronephrosis of the left kidney. The urinary bladder is unremarkable. Urine cytology 03/01 atypical urethral cells. We discussed repeat urine cytology as well as potential near future in office cystoscopy. She currently denies any UTI like symptoms. She does continue to report intermittent/infrequent episodes of bilateral flank pain. We discussed mild hydronephrosis and further treatment options to include repeat renal ultrasound in 3-6 months verses nuclear renal scan. During last office visit patient was noted to have 3+ microscopic hematuria therefore urine was sent for cytology however in office urinalysis results today with no microscopic hematuria, leukocytes, and or nitrates. However 2+ glucosuria. We discussed importance of management and diabetes for overall health and well-being. We discussed importance of adequate hydration relation to recurrent urinary tract infections as well as nephrolithiasis. We also discussed near future metabolic workup to include [facility] and labs. She denies nocturia, hematuria, dysuria, foul smelling urine, changes to urinary stream, fever, and or chills. PVR today 14 mL. She otherwise offers no other issues or concerns at this time. FOR[facility]LY [facility], LATER [facility] Medical History Right middle lobe pulmonary nodule Recurrent UTI Seasonal allergic rhinitis Controlled type 2 diabetes mellitus with complication, without long-term current use of insulin Rash Hematuria Henoch-Schonlein purpura nephritis Positive PPD, treated Dyslipidemia Immune to hepatitis B Abnormal liver enzymes Surgical History History of laparoscopic appendectomy Review of Systems Const All systems reviewed & are unremarkable except as noted in HPI and below Physical Exam Const General: cooperative, healthy appearing, comfortable, no acute distress, well developed, alert and awake Nutritional Appearance: overweight Orientation/consciousness: patient oriented x3 Limitations: language barrier HEENT Head: Yes normal to inspection, Yes normocephalic and Yes atraumatic Ears: hearing grossly normal bilaterally Eyes General: appearance normal, both eyes and all related structures Neck Neck: Yes normal visual inspection and Yes trachea midline Chest Chest palpation & inspection: normal inspection of the chest Resp Effort & Inspection: normal respiratory effort and able to speak in complete sentences Cardio Rate: regular rate GI Inspection: Yes normal to inspection General: Yes no CVA tenderness Back/Spine/Pelvis Back: no CVA tenderness Skin General skin exam: no rashes or lesions noted Neuro General: patient oriented x3 Extrem General: Yes normal to inspection Psych Appearance: grossly normal and well kempt Mental Status: mental status grossly normal Speech and movement: Normal speech and movement present and Clear speech present Affect: normal affect Attitude: cooperative Thought process: Normal thought process present Thought content: Normal thought content present Insight: Fair insight present (Psych) Judgement: Fair judgement present (Psych) Office Procedures Post Void Residual Post Residual Void Post Void Residual (PVR): 14 [id number] Void Residual by ultrasound Results AMB Urinalysis, Automated UA Leukoctes 0 Spike/uL Last Edit by Myesha Andres on 06/05/24 09:37 UA Nitrite Last Edit by Myesha Andres on 06/05/24 09:37 UA Urobilinogen 0.2 mg/dL Last Edit by Myesha Andres on 06/05/24 09:37 UA Protein 0 mg/dL Last Edit by YesWeAdbelkis Andres on 06/05/24 09:37 UA pH 6.0 Last Edit by [email or web address] on 06/05/24 09:37 UA Blood 0 Nas/uL Last Edit by YesWeAdbelkis Andres on 06/05/24 09:37 UA Specific [place] 1.020 Last Edit by YesWeAdbelkis Andres on 06/05/24 09:37 UA Ketone Last Edit by YesWeAdbelkis Andres on 06/05/24 09:37 UA Bilirubin 0 mg/dL Last Edit by YesWeAdbelkis Andres on 06/05/24 09:37 UA Glucose 500 mg/dL Last Edit by [email or web address] [email or web address] on 06/05/24 09:37 Results Reviewed Results Reviewed: Laboratory Last Values Urine pH (Auto) 6.0 06/05/24 09:30 Specific [place] (Auto) 1.020 06/05/24 09:30 Urine Protein (Auto) 0 mg/dL 06/05/24 09:30 Glucose (UA)(Auto) 500 mg/dL 06/05/24 09:30 Urine Blood (Auto) 0 Nas/uL 06/05/24 09:30 Urine Bilirubin (Auto) 0 mg/dL 06/05/24 09:30 Urine Urobilinogen (Auto) 0.2 mg/dL 06/05/24 09:30 Leukocyte Esterase (Auto) 0 Spike/uL 06/05/24 09:30 Date of Service: 05/19/24 Procedure(s): US retroperitoneal comp Findings: Right kidney normal size and echotexture, 11.7 cm length. There is a 2.9 cm cyst within the right kidney. Left kidney normal size and echotexture, 11.0 cm length. There is a 5 mm calculus within the lower pole of the left kidney. There is a 3 mm calculus within the midportion of the left kidney. Mild hydronephrosis of the left kidney. Normal color Doppler. Urinary bladder is unremarkable. Prevoid volume 951 mL. Postvoid volume 312 mL. Bilateral ureteral jets are visualized. IMPRESSION: 1. Mild hydronephrosis of the left kidney. 2. There are 2 small calculi within the left kidney. 3. Distended urinary bladder with moderate postvoid residual. Assessment & Plan Assessment & Plan (1) Nephrolithiasis: Code(s): N20.0 - Calculus of kidney Category: Medical (2) Recurrent urinary tract infection: Code(s): N39.0 - Urinary tract infection, site not specified Category: Medical (3) Flank pain: Code(s): R10.9 - Unspecified abdominal pain Category: Medical (4) Hydronephrosis: Code(s): N13.30 - Unspecified hydronephrosis Category: Medical Plan In office urinalysis results reviewed with the patient today; as noted above; will send for repeat urine cytology. PVR 14 mL Recent urine cytology results reviewed with the patient today; as noted above. Recent retroperitoneal ultrasound results reviewed with the patient; as noted above. We discussed importance of adequate hydration relation to nephrolithiasis as well as recurrent urinary tract infections. She currently denies any UTI like symptoms. We discussed repeat ultrasound in 3-6 months to assess nephrolithiasis as well as mild hydro We discussed potential near future in office cystoscopy. Will obtain BUN and creatinine. Follow-up in 3-6 months with imaging and labs; or sooner with any issues, concerns, and or questions. Orders: Orders AMB Urinalysis Automated 06/05/24 Z13.9 - Encounter for screening, unspecified AMB Post Void Residual by ultrasound 06/05/24 N39.0 - Urinary tract infection, site not specified Creatinine 06/05/24 R39.15 - Urgency of urination Urine Cytology 06/05/24 N39.0 - Urinary tract infection, site not specified, R10.9 - Unspecified abdominal pain US renal BI 4 Months N20.0 - Calculus of kidney Blood Urea Nitrogen 06/05/24 R39.15 - Urgency of urination Patient Instructions: The patient had an opportunity to ask questions regarding the treatment plan. All questions were answered. Physical exam, labs, and imaging were discussed and reviewed in detail. As well as risks, benefits, and discussion of treatment choices. No major barriers to understanding were identified. The patient expressed understanding and agreement with the above treatment plan. The patient was made aware they should contact our office by phone for worsening of their current condition, the appearance of new symptoms, or with any questions or concerns. Compliance is encouraged with any medications and follow up testing that is ordered. It is a privilege to be allowed the opportunity to participate in? your urological care.? Again, if you have any questions or concerns If you have any questions or concerns please do not hesitate to contact me. The office is [phone]. This note is constructed using voice recognition software. While every effort has been made to ensure accuracy diagram clerk errors may have been included. Yours sincerely, SARAH Sky Coding Level of Care Code Est Pt Level 3 (55031) Diagnoses Nephrolithiasis N20.0 Recurrent urinary tract infection N39.0 Flank pain R10.9 Hydronephrosis N13.30 CPT Codes Post Residual Void - PVR CPT Code: 51900-Wbtx Void Residual by ultrasound ([id number])
--- OUTSIDE RECORDS SUMMARY | 2024-06-05 10:12 | XMS_ITS | Clinical Summary ---
Author Organization [facility] Address [address] [place] [address] Care Team Providers Care Corporate Compliance Manager Name Role Phone Keya Bhat NP Primary Care Provider + [phone] Source Comments PLEASE NOTE, if this patient [...] Diabetic. 73.03 1 Each 06/04/19 19 Active loratadine (CLARITIN) 10 mg tabletIndications: Environmental allergies Take 1 Tablet by mouth once daily as needed for allergies 30 Tablet 3 08/04/19 21 Active betamethasone dipropionate (DIPROLENE) 0.05 % ointment APPLY TO LEGS TWICE DAILY FOR 2 WEEKS, BREAK 1 WEEK, REPEAT 04/29/19 22 Active blood sugar diagnostic (FREESTYLE LITE [...] max 60 mL 3 06/22/19 24 Active SITagliptin phos-metformin (JANUMET) 50-1,000 mg per tabletIndications: Controlled type 2 diabetes mellitus without complication, without long-term current use of insulin ([facility]) Take 1 Tablet by mouth 2 (two) times daily with a meal TAKE 1 TABLET BY MOUTH TWICE DAILY WITH FOOD 180 Tablet 3 12/27/19 24 Active oxymetazoline (AFRIN SINUS, OXYMETAZOLINE,) 0.05 % nasal sprayIndications:V iral upper respiratory tract infection Place 2 Sprays into the nostril(s) 2 (two) times daily 15 mL 03/21/19 25 Active benzonatate (TESSALON) 200 mg capsuleIndications :Viral upper respiratory tract infection Take 1 Capsule by mouth 3 (three) times daily as needed for cough 30 Capsule 03/21/19 25 Active metFORMIN (GLUCOPHAGE) 1,000 mg tablet TAKE 1 TABLET BY MOUTH TWICE A DAY WITH A MEAL 180 Tablet 3 03/31/19 25 Active atorvastatin (LIPITOR) 20 mg tabletIndications: Medication refill Take 1 Tablet by mouth once daily 90 Tablet 1 04/11/19 25 Active meclizine 25 mg chewable tabletIndications: Dizziness Place 1 Tablet into mouth, chew and swallow 3 (three) times daily as needed for dizziness 40 Tablet 04/11/19 25 Active ibuprofen 600 mg tabletIndications: Viral upper respiratory tract infection TAKE 1 TABLET BY MOUTH THREE TIMES A DAY NEEDED FOR PAIN 90 Tablet 04/22/19 25 Active ALTAVERA, 28, 0.15-0.03 mg per tabletIndications: Medication refill TAKE 1 TABLET BY MOUTH EVERY DAY 84 Tablet 3 05/02/19 25 Active polyethylene glycol, PEG, 3350 (GLYCOLAX) 17 gram/dose powderIndications: Constipation, unspecified constipation type Take 17 g by mouth once daily 510 g 05/08/19 25 Active norethindrone-ethi n estradioL (OVCON) 0.4-35 mg-mcg per tablet Take 1 Tablet by mouth once daily 84 Tablet 4 05/29/19 25 Active Active Problems Problem Noted Date Diagnosed Date Diabetic mononeuropathy asso ciated with type 2 diabetes mellitus ([facility]) 05/07/2024 Palpitations 05/07/2024 Assessment & Plan (05/07/2024 [...] months 06/2022: [facility] UTI prevention, imagining to r/o structural abnormalities, recommended then follow up Encounter for gynecological examination with Papanicolaou smear of cervix 03/03/2021 Overview (03/03/2021): PAP DONE 02/28/21 Negative for intraepithelial lesion or malignancy. HPV negative Exposure to COVID-19 virus 03/01/2020 Seasonal allergic rhinitis 07/28/2019 Controlled type 2 diabetes m ellitus without complication, without long-term current use of insulin ([facility]) 09/03/2017 Hematuria and rash 04/26/2017 Overview (04/27/2017): Renal and transpalnt 03-19-18 Purpuric rash and hematuria, status post renal [...] ) Advise avoid NSAIDs Henoch-Schonlein purpura nephritis (PACE-HCC V24 ) 02/13/2017 Overview (02/13/2017): No tx at this time by rheumatology unless has another flair- see notes in the chart Henoch-Schonlein purpura (PACE-HCC V24) 02/01/20 17 Positive PPD, treated 12/23/2014 Overview (12/23/2014): Pt was treated in [place] with Rifampin for 4 months Dyslipidemia (high LDL; low HDL) 10/13/2014 S/P laparoscopic appendectomy 08/10/2014 Overview (08/10/2014): Done 08/[address] [facility] [address] Eliazar Nicholson Pap smear [...] Encounters Date Type Department Care Team Description 05/28/2024 9:00 AM EDT Office Visit [facility] [address] [place] [phone] Terry Couch MD Tiwari, Roshni Screening for HPV (human papillomavirus) (Primary Dx); Encounter for other general counseling and advice on contraception 05/07/2024 9:00 AM EDT Office Visit [address] [phone] Keya Bhat NP Tiwari, Roshni Recurrent UTI (Primary Dx); Palpitations; Right middle lobe pulmonary nodule; Constipation, unspecified constipation type; Diabetic mononeuropathy associated with type 2 diabetes mellitus ([facility]); Well woman exam 04/10/2024 4:00 PM EST Office Visit [address] [phone] Nellie Major NP Other chest pain (Primary Dx); Medication refill; Dizziness; Lethargy 03/21/2024 1:20 PM EST Office Visit [address] [phone] Jean Paul Mendoza PA-C Tiwari, Roshni Viral upper respiratory tract infection (Primary Dx); Fever, unspecified fever cause; Non-Czech speaking patient from Last 3 Months Immunizations [...] Sign Reading Time Taken Comments Blood Pressure 128/85 05/28/2024 9:03 AM EDT Pulse 90 05/28/2024 9:03 AM EDT Temperature 36.6 ??C (97.9 ??F) 05/07/2024 9:00 AM ED T Respiratory Rate 16 05/28/2024 9:03 AM EDT Oxygen Saturation 98% 05/28/2024 9:03 AM EDT Inhaled Oxygen Concentration - - Weight 68.9 kg (152 lb) 05/28/2024 9:03 AM EDT Height 154.9 cm (5' 1 ) 05/28/2024 9:03 AM EDT Body Mass Index 28.72 05/28/2024 9:03 AM EDT Plan of Treatment Health Maintenance Due Date Last Done Comments Dental Examination 1990 HPV Screening 1990 [id number] ( season) 2023 01/24/2022, 07/06/2020, 05/31/2020 Imm-Influenza (#1) 2023 12/21/2022, 0 11/04/2021, 11/20/2019, Additional history exists Annual Preventive Care Visit 12/22/2023, 11/03/2021, 10/13/2020, Additional history exists Diabetes Foot Exam 12/22/2023 12/21/2022, 0 04/01/2019, 04/01/2019 Lipid Screening 12/22/2023 12/21/2022, 10/08, 10/18/2020, Additional history exists Serum Creatinine 12/22/2023 12/21/2022, , 06/23/2021, Additional history exists Retinopathy Screening 03/09/2024 03/09/2023, 023 Diabetes HbA1c 04/01/2024 12/31/2023, 09/06, 03/30/2023, Additional history exists Tobacco Screening 06/21/2024 06/22/2023, 05/17/2022 Urine Albumin Creatinine Rat io Screening 09/27/2024 09/28/2023, 11/17/2020, 04/01/2019 Anxiety Screening 05/07/2025 05/07/2024 Relationship Safety Screening/Counseling 05/07/2025 05/07/2024, 12/21/2022, 08/19/2021, Additional history exists Hypertension Screening (#1) 05/28/2025 Cervical Cancer Screening 05/29/2027 Pap + HPV 05/29/2027 05/28/2024, 02/28/2021 Pap Smear 05/29/2027 05/28/2024, 02/06, 03/01/2017 (Managed by Outside Provider), Additional history exists Imm-DTaP/Tdap/Td (4 - Td [...] Procedure Name Priority Date/Time Associated Diagnosis Comments THINPREP IMAGING PAP, HPV MRNA E6/E7 RFLEX HPV 16,18/45 CT/NG Routine 05/28/2024 9:23 AM EDT Screening for HPV (human papillomavirus) CARD SCANNED DOCUMENT 04/23/2024 3:00 AM EDT [...] cause ID NOW STREP A2 (POCT) Routine 1:51 PM EST Fever, unspecified fever cause HEMOGLOBIN GLYCOSYLATED A1C Routine 12/31/2023 8:45 AM EST Controlled type 2 diabetes mellitus without complication, without long-term current use of insulin ([facility]) Dyslipidemia (high LDL; low HDL) MICROALBUMIN/CREATININ E RATIO, URINE, RANDOM Routine 09/28/2023 4:11 PM EDT Controlled type 2 diabetes mellitus without complication, without long-term current use of insulin ([facility]) EYE EXAM 03/09/2023 3:00 AM EST COMPREHENSIVE METABOLIC PANEL Routine 12/21/2022 4:21 PM EST Controlled type 2 diabetes mellitus without complication, without long-term current use of insulin ([facility]) LIPID PANEL Routine 12/21/2022 4:21 PM EST Dyslipidemia (high LDL; low HDL) ANTIBODY HIV-1&HIV-2 SINGLE RESULT Routine 04/01/2019 11:15 AM EST Encounter for general adult medical examination w/o abnormal findings HEPATITIS A,B,C PANEL Routine 10/16/2013 6:38 PM EDT Abnormal liver enzymes from Last 3 Months or Most Recently Relevant to Health Maintenance Results * THINPREP IMAGING PAP, HPV MRNA E6/E7 RFLEX HPV 16,18/45 CT/NG (05/28/2024 9:23 AM EDT) CHLAMYDIA TRACHOMATIS RNA, TMA NOT DETECTED NOT DETECTED [facility] NEISSERIA GONORRHOEAE RNA, TMA NOT DETECTED NOT DETECTED [employer] COMMENT [employer] CLINICAL INFORMATION See Note [employer] Comment:None given LMP See Note [employer] Comment:NONE GIVEN PREV. PAP See Note [employer] Comment:NONE GIVEN PREV. BX See Note [employer] Comment:NONE GIVEN SOURCE See Note [employer] Comment:Cervix STATEMENT OF ADEQUACY See Note [employer] [facility] Comment: Satisfactory for evaluation. Endocervical/transformation zone component present. INTERPRETATION/RESU LT See Note [employer] Comment: Cytology Results: Negative for intraepithelial lesion or malignancy. COMMENT See Note [facility] Comment: This Pap test has been evaluated with computer assisted technology. FREEZING ROOM WORKER See Note [employer] Comment: CMG, CT(ASCP) CT screening location: [address] ??[address] COMMENT [employer] HPV MRNA E6/E7 Not Detected Not Detected [facility] Comment: Methodology: Veneer Patcher-Mediated Amplification This assay detects E6/E7 viral messenger RNA (mRNA) from 14 high-risk HPV types (16,18,31,33,35,39,45,51,52,56,58,59,66,68). Cervical sources are required for HPV testing. If a vaginal source from a patient who has had a total hysterectomy with removal of cervix was submitted, please contact the testing laboratory for alternative testing options. For additional information, please refer to http://WaveSyndicate.iWarda/faq/UMI273u4 (This link if provided for information/ educational purposes only.) Swab Cervix uteri structure / Unknown 05/28/2024 9:23 AM EDT 05/29/2024 5:06 AM EDT Narrative [facility] - 05/30/2024 5:24 PM EDT EXPLANATORY NOTE: The Pap is a screening [...] test SurePath(TM) specimens have been determined by [facility]. The modifications have not been cleared or approved by the FDA. This assay has been validated pursuant to the CLIA regulations and is used for clinical purposes. For additional information, please refer to https://WaveSyndicate.iWarda/faq/WRY656 (This link is being provided for information/ educational purposes only.) Terry Couch MD LAB - NO BLOOD DRAW Final Resul t [facility] [address] [address], [facility] [address] [phone] * CARD SCANNED DOCUMENT (04/23/2024 3:00 AM EDT) Only the most recent of2 resultswithin the time period is included. 04/23/2024 3:00 AM EDT Tallon Tomasi VETERINARY ATTENDANT SCAN ECGS Final Result * (ABNORMAL) BLOOD COUNT COMPLETE AUTO&AUTO DIFRNTL WBC (04/10/2024 5:02 PM EST) [facility] WHITE BLOOD CELL COUNT 8.5 3.8 - 10.8 Thousand/ uL [facility] RED BLOOD CELL COUNT 5.03 3.80 - 5.10 Million/u L [facility] HEMOGLOBIN 12.3 11.7 - 15.5 g/dL [facility] HEMATOCRIT 38.8 35.0 - 45.0 % [facility] MCV 77.1(L) 80.0 - 100.0 fL [facility] MCH 24.5(L) 27.0 - 33.0 pg [facility] MCHC 31.7(L) 32.0 - 36.0 g/dL [facility] Comment: For adults, a slight decrease in the calculated MCHC value (in the range of 30 to 32 g/dL) is most likely not clinically significant; however, it should be interpreted with caution in correlation with other red cell parameters and the patient's clinical condition. RDW 12.7 11.0 - 15.0 % [facility] PLATELET COUNT 399 140 - 400 Thousand/ uL [facility] MPV 11.4 7.5 - 12.5 fL [facility] ABSOLUTE NEUTROPHILS 4,182 1,500 - 7,800 cells/uL [facility] ABSOLUTE LYMPHOCYTES 3,290 850 - 3,900 cells/uL [facility] ABSOLUTE MONOCYTES 799 200 - 950 cells/uL [facility] ABSOLUTE EOSINOPHILS 187 15 - 500 cells/uL [facility] ABSOLUTE BASOPHILS 43 0 - 200 cells/uL [facility] NEUTROPHILS PCT 49.2 % QUES T Definition 6 [facility] LYMPHOCYTES 38.7 % [facility] [employer] MONOCYTES 9.4 % [facility] [employer] [facility] EOSINOPHILS 2.2 % [facility] [employer] [facility] BASOPHILS 0.5 % [facility] [employer] [facility] Blood Blood / Unknown 04/10/2024 5 :02 PM EST 04/10/2024 5:03 PM EST Narrative [facility] - 04/11/2024 6:52 AM EST FASTING:NO us Nellie Major NP LAB - BLOOD DRAW Edited Result - Final [facility] [address] [address], [facility] [address] [address] * ASSAY OF FERRITIN (04/10/2024 5:02 PM EST) [facility] FERRITIN 108 16 - 154 ng/mL [facility] Blood Blood / Unknown 04/10/2024 5 :02 PM EST 04/10/2024 5:03 PM EST Narrative [facility] - 04/11/2024 6:52 AM EST FASTING:NO Nellie Major VETERINARY ATTENDANT LAB - BLOOD DRAW Final Result [facility] [address] [address], [facility] [address] [address] * (ABNORMAL) INFLUENZA A AND B, ALERE (POCT) (03/21/2024 1:51 PM EST) [facility] INFLUENZA A NEGATIVE NEGATIVE [facility] POCT INFLUENZA B POSITIVE(A) NEGATIVE [facility] POCT INTERNAL CONTROL PASS PASS [facility] POCT NASAL Nasal structure / Unknown 03/21/2024 1:51 PM EST Jean Paul VANC LAB - NO BLOOD DRAW Final Res ult [facility] POCT * COVID-19, ID NOW, WILSON (POCT) (03/21/2024 1:51 PM EST) [facility] COVID-19 NEGATIVE NEGATIVE [facility] POCT INTERNAL CONTROL PASS PASS [facility] POCT Swab Nasal structure / Unknown 03/21/2024 1:51 PM EST Jean Paul DOTY-C LAB - NO BLOOD DRAW Final Res ult [facility] POCT * ID NOW STREP A2 (POCT) (03/21/2024 1:51 PM EST) STREP A NEGATIVE NEGATIVE [facility] POCT INTERNAL CONTROL PASS PASS [facility] POCT Swab Structure of anterior portion of neck / Unknown 03/21/2024 1:51 PM EST Jean Paul Child PA-C LAB - NO BLOOD DRAW Final Res ult Performing Organization Address City/[facility]/ZIP Co de Phone Number [facility] POCT * (ABNORMAL) HEMOGLOBIN GLYCOSYLATED A1C (12/31/2023 8:45 AM EST) HEMOGLOBIN A1C 7.6(H) <5.7 % of total Hgb [facility] Comment: For someone without known diabetes, a [...] AM EST 12/31/2023 8:45 AM EST Narrative [facility] - 01/01/2024 4:20 AM EST FASTING:YES Keya Bhat NP LAB - BLOOD DRAW Final Resul t Performing Organization Address City/[facility]/ZIP Co de Phone Number [facility] [address] [place] [address], [facility] [address] [place] [phone] * MICROALBUMIN/CREATININE RATIO, URINE, RANDOM (09/28/2023 4:11 PM EDT) CREATININE, RANDOM URINE 119 20 - 275 mg/dL [facility] MICROALBUMIN 3.5 mg/dL [facility] Comment: Reference Range Not established MICROALBUMIN/CREA TININE RATIO, RANDOM URINE 29 <30 mg/g creat [facility] Comment: The ADA defines abnormalities in albumin [...] PM EDT 09/28/2023 4:11 PM EDT Narrative [facility] - 10/04/2023 2:37 AM EDT FASTING:NO us Keya Bhat NP LAB - NO BLOOD DRAW Final Re sult [facility] [address] [place] [address], [facility] [address] [phone] * EYE EXAM (03/09/2023 3:00 AM EST) 03/09/2023 3:00 AM EST us Keya Bhat NP OTHER Final Result * (ABNORMAL) LIPID PANEL (12/21/2022 4:21 PM EST) CHOLESTEROL, TOTAL 179 <200 mg/dL [facility] HDL CHOLESTEROL 40(L) > OR = 50 mg/dL [facility] TRIGLYCERIDES 222(H) <150 mg/dL [facility] Comment: If a non-fasting specimen was collected, consider repeat triglyceride testing on a fasting specimen if clinically indicated. Sloane et al. J. of Clin. Lipidol. 2015;9:129-169. LDL-CHOLESTEROL 105(H) 99 mg/dL (calc) [facility] Comment: Reference range: <100 Desirable range <100 mg/dL for primary prevention; ?? <70 mg/dL for patients with CHD or diabetic patients with > or = 2 CHD risk factors. LDL-C is now calculated using the Kings-Hewitt calculation, which is a validated novel method providing better accuracy than the Friedewald equation in the estimation of LDL-C. Kings SS et al. EMILY. 2013;310(19): 1819-6014 (http://education.Flare Code/faq/KEV460) CHOL/HDLC RATIO 4.5 <5.0 (calc) [facility] NON-HDL CHOLESTEROL 139(H) <130 mg/dL (calc) [facility] Comment: For patients with diabetes plus 1 major ASCVD risk factor, treating to a non-HDL-C goal of <100 mg/dL (LDL-C of <70 mg/dL) is considered a therapeutic option. Blood Blood / Unknown 12/21/2022 4 :21 PM EST 12/21/2022 4:22 PM EST Charmaine DOTY LAB - BLOOD DRAW Final Result [facility] [address] [place] [id number], [facility] [address] [place] [phone] * (ABNORMAL) COMPREHENSIVE METABOLIC PANEL (12/21/2022 4:21 PM EST) [facility] GLUCOSE 89 65 - 99 mg/dL [facility] Comment: ?Fasting reference interval UREA NITROGEN (BUN) 10 7 - 25 mg/dL [facility] CREATININE (blood) 0.61 0.50 - 0.97 mg/dL [facility] EGFR 122 > OR = 60 mL/min/1. 73m2 [facility] BUN/CREATININE RATIO SEE NOTE: [facility] Comment: ?? Not Reported: BUN and Creatinine are within ?? reference range. ? SODIUM 136 135 - 146 mmol/L [facility] POTASSIUM 4.3 3.5 - 5.3 mmol/L [facility] CHLORIDE 102 98 - 110 mmol/L [facility] CARBON DIOXIDE 24 20 - 32 mmol/L [facility] CALCIUM 9.7 8.6 - 10.2 mg/dL [facility] PROTEIN, TOTAL 8.1 6.1 - 8.1 g/dL [facility] ALBUMIN 4.4 3.6 - 5.1 g/dL [facility] GLOBULIN 3.7 1.9 - 3.7 g/dL (calc) [facility] ALBUMIN/GLOBULI N RATIO 1.2 1.0 - 2.5 (calc) [facility] BILIRUBIN, TOTAL 0.5 0.2 - 1.2 mg/dL [facility] ALKALINE PHOSPHATASE 65 31 - 125 U/L [facility] AST 37(H) 10 - 30 U/L [facility] ALT 84(H) 6 - 29 U/L [facility] Blood Blood / Unknown 12/21/2022 4 :21 PM EST 12/21/2022 4:22 PM EST Charmaine DOTY LAB - BLOOD DRAW Edited Result - Final Performing Organization Address City/[facility] Co de Phone Number [facility] [address] [address], [facility] [address] [phone] * HIV-1 & HIV-2 ANTIBODIES (04/01/2019 11:15 AM EST) [facility] HIV 1 AND 2 ANTIBODY SCREEN NEGATIVE NEGATIVE [facility] Comment: This assay is a 4th [...] AM EST 04/01/2019 11:31 AM EST Narrative [facility] - 04/01/2019 6:50 PM EST R17, a member of [address] [address] Pin Machine Tender - Josefina Peterson MD PT ID [id number] ORD# [id number] Eli MALDONADO LAB - BLOOD DRAW Final Resu lt Performing Organization Address City/[facility]/ZIP Co de Phone Number [facility] [employer] [place] [address], [place] [phone] * (ABNORMAL) HEPATITIS A,B,C PANEL (10/16/2013 6:38 PM EDT) HEPATITIS B SURFACE ANTIBODY POSITIVE(A) NEGATIVE [facility] HEPATITIS B SURFACE ANTIGEN NEGATIVE NEGATIVE [facility] HEPATITIS C VIRUS ANTIBODY NEGATIVE NEGATIVE [facility] HEPATITIS B CORE ANTIBODY NEGATIVE NEGATIVE [facility] HEPATITIS A ANTIBODY TOTAL POSITIVE(A) NEGATIVE [facility] Blood specimen (specimen) Blood / Unknown 10/16/2013 6:38 PM EDT 10/16/2013 6:57 PM EDT Narrative [facility] - 10/16/2013 10:16 PM EDT [facility] [address] [place] [address] PT ID [id number] ORD# [id number] us Fernando Mcbride MD LAB - BLOOD DRAW Edited Result - Final [facility] [address] [place] [address], [place] [phone] from Last 3 Months or Most Recently Relevant to Health Maintenance Insurance [employer] Member Subscriber Plan / Payer (Ef fective 2023-Present) Name:Greta Dove Relation to Subscriber:Self Name:Greta Dove Payer ID:[id number] Group ID:Not on file Type:Indemnity Address: [facility] [address] [place] [address] Care Teams Corporate Compliance Manager Relationship Specialty Start Date End Date Keya Bhat NP [address] [place] [address] PCP - General Internal Medicine 10/04/21
== END 2024-06-05 10:10 | disposition home or self-care (01) ==
LOC: HO.HUSH 09:22
PROVIDERS: Visit Provider Nurse Practitioner Family
DX: Z13.9 Encounter for screening, unspecified (principal)

== ENCOUNTER 2024-10-07 11:22 | Outpatient (REF) | payer OTHER, SELFPAY ==
--- NOTE | ~2024-10-07 | US_ITS ---
EXAMINATION: US RETROPERITONEAL LIMITED (RENAL ONLY) CLINICAL INFORMATION: Calculus of the kidney.. COMPARISON: May 19, 2024. TECHNIQUE: Real-time ultrasound kidneys using grayscale technique. FINDINGS: RIGHT KIDNEY: 11 x 6 x 6 cm (SAG x AP x TRV). Volume: 189 cc. Normal echotexture. Normal renal cortical thickness. Pelvicalyceal ectasia. There is a 3.2 cm anechoic lesion at the corticomedullary junction, midportion. There is a 3 mm hyperechoic structure at the corticomedullary junction of the lower pole. LEFT KIDNEY: 11 x 6 x 6 cm (SAG x AP x TRV). Volume: 185 cc. Normal echotexture. Normal renal cortical thickness. Pelvicalyceal ectasia. 5 mm hyperechoic structures in the corticomedullary junction midportion and lower pole. US/US renal BI IMPRESSION: Bilateral nephrolithiasis. Pelvicalyceal ectasia/mild hydronephrosis, bilaterally. 3.2 cm cyst, right kidney.. Electronically signed by: Kendell Bui MD 10/07/2024 12:19 PM EDT
--- OUTSIDE RECORDS SUMMARY | 2024-10-07 13:03 | XMS_ITS | Clinical Summary ---
Author Organization [facility] Address [address] [place] [address] Care Team Providers Care Batterboard Setter Name Role Phone Keya Bhat NP Primary Care Provider + [phone] Source Comments PLEASE NOTE, if this patient is a minor, it may be UNLAWFUL to discuss sensitive information that is contained in these records (such as FAMILY PLANNING, MENTAL HEALTH or SUBSTANCE ABUSE) with the minor patient's parent or other person without the patient's specific authorization.[facility] Allergies No known active allergies Medications blood-glucose meter monitoring kitIndications: Prediabetes Pt is Diabetic. 73.03 1 Each 9 Active blood sugar diagnostic (FREESTYLE LITE STRIPS) stripsIndicatio ns:Prediabetes USE ONCE DAILY TO CHECK BLOOD SUGAR 100 Each 1 3 Active flash glucose sensor (FREESTYLE CHIO 14 DAY SENSOR) kitIndications: Controlled type 2 diabetes mellitus without complication, without long-term current use of insulin ([facility]) 1 Each by miscellaneous route every 14 (fourteen) days 2 Kit 3 Active SITagliptin phos-metformin (JANUMET) 50-1,000 mg per tabletIndicatio ns:Controlled type 2 diabetes mellitus without complication, without long-term current use of insulin ([facility]) Take 1 Tablet by mouth 2 (two) times daily with a meal TAKE 1 TABLET BY MOUTH TWICE DAILY WITH FOOD 180 Tablet 3 4 Active oxymetazoline (AFRIN SINUS, OXYMETAZOLINE,) 0.05 % nasal sprayIndication s:Viral upper respiratory tract infection Place 2 Sprays into the nostril(s) 2 (two) times daily 15 mL 5 Active atorvastatin (LIPITOR) 20 mg tabletIndicatio ns:Medication refill Take 1 Tablet by mouth once daily 90 Tablet 1 5 Active ALTAVERA, 28, 0.15-0.03 mg per tabletIndicatio ns:Medication refill TAKE 1 TABLET BY MOUTH EVERY DAY 84 Tablet 3 5 Active Active Problems Problem Noted Date Diagnosed Date Diabetic mononeuropathy asso ciated with type 2 diabetes mellitus ([facility]) 05/07/2024 Palpitations 05/07/2024 Overview (07/31/2024): 04/10/24-04/23/24 Holter Monitor 1. Underlying Rhythm Sinus with sinus tachycardia 2. Max Sinus HR 164 min Sinus HR 75 3. Afib burden 0% 4. Atrial Flutter burden 0% 5. Pause > 2.5 sec= 0 6. PVC= 2 7. PAC= 58 8. AV Blocks = none 9. Patient marker count=0 10. Diary= none Assessment & Plan (05/07/2024 9:25 AM EDT): 05/07/24: sinus with sinus tach seen on holter monitor Right middle lobe pulmonary nodule 01/29/2024 Overview (07/31/2024): 07/2024: Stable pleural-based right middle lobe pulmonary nodule. This does not need to be followed unless the patient is high risk. 05/2022: seen on right middle lobe ct scan measuring 4 mm Recurrent UTI 06/22/2022 Overview (07/17/2022): 07/11/22: discussed supportive care with cranberry extract and methenamine. . For urgency and frequency & feelings of incomplete bladder emptying disuccsedded anticholinergics or beta agonist, pt would like to hold off. Reinforced lifestyle. F/U 6 months 06/2022: [facility] with , [facility] UTI prevention, imagining to r/o structural abnormalities, recommended then follow up Seasonal allergic rhinitis 07/28/2019 Controlled type 2 diabetes m ellitus without complication, without long-term current use of insulin ([facility]) 09/03/2017 Hematuria and rash 04/26/2017 Overview (04/27/2017): [...] ) Advise avoid NSAIDs Henoch-Schonlein purpura nephritis ([facility] V24) 02/13/2017 Overview (02/13/2017): No tx at this time by rheumatology unless has another flair- see notes in the chart Positive PPD, treated 12/23/2014 Overview (12/23/2014): Pt was treated in [place] with Rifampin for 4 months Dyslipidemia (high LDL; low HDL) 10/13/2014 Immune to hepatitis B 12/25/2013 Overview (12/25/2013): Immune to hep B by blood test 10/16/2013 Abnormal liver enzymes 10/16/2013 Overview (02/03/2014): Had an Ultrasound done on 01/23/2014 Steosis Resolved Problems Problem Noted Date Diagnosed Date Resolved Date History of Holter monitoring 05/03/2024 07/31/2024 Encounter for gynecological examination with Papanicolaou smear of cervix 03/03/2021 07/31/2024 Overview (03/03/2021): PAP DONE 02/28/21 Negative for intraepithelial lesion or malignancy. HPV negative Exposure to COVID-19 virus 03/01/2020 0 07/31/2024 Strep pharyngitis 04/04/2017 12/03/2017 Overview (04/04/2017): Positive Henoch-Schonlein purpura ([facility] V24) 01/31/2017 07/31/2024 S/P laparoscopic appendectomy 08/10/2014 07/31/2024 Overview (08/10/2014): Done 08/01 at [facility] by Dr Eliazar Nicholson Pap smear for cervical cancer screening 01/16/2014 07/31/2024 Overview (01/16/2014): 11/20/13: NIL NO ECC's; per guidelines routine screening Next pap due: 11/2016(age 26yr)01/16/14 * pt does have elevated LFT's no etiology yet Encounters Date Type Department Care Team Description 07/31/2024 8:40 AM EDT Office Visit [address] [address] Keya Bhat, DIRECTOR OF EVENT MANAGEMENT Anabel Slade from Last 3 Months Immunizations Immunization Administration Dates Next Due Flu, Preservative Free 12/21/2022,2021,11/20/2019,2018,12/03/2017,10/02/2016 Hep B, Adult/Adol ([id number]/RECOMBIVAX-ADULT) 11/24/2013 MODERNA COVID-19 VACCINE BIV ALENT, BLUE CAP, 6M+ 01/24/2022 Moderna COVID-19 Vaccine, re d cap blue label, 12+ Primary Series 07/06/2020,05/31/2020 PNEUMOCOCCAL CONJUGATE PCV 2 0 (Prevnar 20) 05/07/2024 TDAP 05/07/2024,06/24/2012,06/24/2012 Td (adult),2 Lf tetanus toxo id (TDVAX), preservative free 01/05/2012,01/05/2012 Family History Medical History Relation Name Comments Diabetes Mother Hypertension Mother Relation Name Status Comments Brother Alive Father Alive Mother Alive Sister Alive Social History Tobacco Use Types Packs/Day Years Used Date Smoking Tobacco: Never Smokeless Tobacco: Never Tobacco Cessation:Counseling Given: Yes Alcohol Use Standard Drinks/Week Comments No 0 (1 standard drink = 0.6 oz pur e alcohol) Social Connections Answer Date Recorded How often do you feel lonely or isolated from th ose around you? 1 05/07/2024 Financial Resource Strain Answer Date R ecorded Hard to pay for: Food 1 05/07/2024 Stress Answer Date Recorded Do you feel these kinds of stress these days? 1 05/07/2024 Physical Activity Answer Date Recorded Physical Activity 0 09/28/2018 Food Insecurity Answer Date Recorded Hard to pay for: Food 1 05/07/2024 Transportation Needs Answer Date Record ed Hard to pay for: Transportation 1 05/07/2024 Housing Stability Answer Date Recorded Hard to pay for: Rent/Mortgage payment 1 05/07/2024 Safety and Environment Answer Date Kenn rded How often does anyone, inclu ding family and friends, physically hurt you? 1 05/07/2024 Utilities Answer Date Recorded Hard to pay for: Utilities 1 05/07 Employment Answer Date Recorded Stress 0 04/25/2021 Comments No Sex and Gender Information Value Date Recorded Sex Assigned at Female 01/16/2017 1:26 PM PST Legal Sex Female 8:46 AM PST Gender Identity Female 01/16/2017 1:26 PM PST Sexual Orientation Straight 01/16/2017 1: 26 PM PST Occupation Industry Job Start Date Job End Date [employer] Not on file Not on file Not on file Last Filed Vital Signs Vital Sign Reading Time Taken Comments Blood Pressure 114/82 07/31/2024 9:16 AM EDT Pulse 105 07/31/2024 9:16 AM EDT Temperature 36.6 C (97.9 F) 05/07/2024 9:00 AM EDT Respiratory Rate 16 07/31/2024 9:16 AM EDT Oxygen Saturation 98% 07/31/2024 9:16 AM EDT Inhaled Oxygen Concentration - - Weight 68.8 kg (151 lb 9.6 oz) 07/31/2024 9:16 A M EDT Height 154.9 cm (5' 1 ) 05/28/2024 9:03 AM EDT Body Mass Index 28.64 05/28/2024 9:03 AM EDT Plan of Treatment Health Maintenance Due Date Last Done Comments Dental Examination 1990 HPV Screening 1990 [id number] ( season) 2023 01/24/2022, 07/06/2020, 05/31/2020 Diabetes Foot Exam 12/22/2023 12/21/2022, 0 04/01/2019, 04/01/2019 Lipid Screening 12/22/2023 12/21/2022, 10/08, 10/18/2020, Additional history exists Serum Creatinine 12/22/2023 12/21/2022, , 06/23/2021, Additional history exists Urine Albumin Creatinine Rat io Screening 09/27/2024 09/28/2023, 11/17/2020, 04/01/2019 Imm-Influenza (#1) 2024 12/21/2022, 0 11/04/2021, 11/20/2019, Additional history exists Hemoglobin A1c 10/31/2024 07/31/2024, 12/07, 09/28/2023, Additional history exists Anxiety Screening 05/07/2025 05/07/2024 Relationship Safety Screening/Counseling 05/07/2025 05/07/2024, 12/21/2022, 08/19/2021, Additional history exists Annual Wellness (Adult): Indicated (All Coverage) 07/31/2025 07/31/2024, 12/21/2022, 11/03/2021, Additional history exists Hypertension Screening (#1) 07/31/2025 Retinopathy Screening 07/31/2025 07/31/2024 (Managed by Outside Provider), 03/09/2023, 02/23/2022 Tobacco Screening 07/31/2025 07/31/2024, , 05/17/2022 Cervical Cancer Screening 05/29/2027 Pap + HPV [...] Procedure Name Priority Date/Time Associated Diagnosis Comments HEMOGLOBIN GLYCOSYLATED A1C Routine 07/31/2024 9:31 AM EDT Uncontrolled type 2 diabetes mellitus with hyperglycemia ([facility]) THINPREP IMAGING PAP, HPV MRNA E6/E7 RFLEX HPV 16,18/45 CT/NG Routine 05/28/2024 9:23 AM EDT Screening for HPV (human papillomavirus) MICROALBUMIN/CREATINI NE RATIO, URINE, RANDOM Routine 09/28/2023 4:11 PM EDT Controlled type 2 diabetes mellitus without complication, without long-term current use of insulin ([facility]) EYE EXAM 03/09/2023 3:00 AM EST COMPREHENSIVE METABOLIC PANEL Routine 12/21/2022 4:21 PM EST Controlled type 2 diabetes mellitus without complication, without long-term current use of insulin ([facility]) LIPID PANEL Routine 12/21/2022 4:21 PM EST Dyslipidemia (high LDL; low HDL) ANTIBODY HIV-1&HIV-2 SINGLE RESULT Routine 04/01/2019 11:15 AM EST Encounter for general adult medical examination w/o abnormal findings HEPATITIS A,B,C PANEL Routine 10/16/2013 6:38 PM EDT Abnormal liver enzymes from Last 3 Months or Most Recently Relevant to Health Maintenance Results * (ABNORMAL) HEMOGLOBIN GLYCOSYLATED A1C Routine (07/31/2024 9:31 AM EDT) HEMOGLOBIN A1C 8.9(H) <5.7 % [facility] Comment: For someone without known diabetes, a [...] A1c for diagnosis of diabetes for children. Blood Blood / Unknown 07/31/2024 9 :31 AM EDT 07/31/2024 9:32 AM EDT Keya Bhat NP LAB - BLOOD DRAW Final Resul t [facility] [address] [address], [facility] [address] [place] [address] * THINPREP IMAGING PAP, HPV MRNA E6/E7 RFLEX HPV 16,18/45 CT/NG (05/28/2024 9:23 AM EDT) CHLAMYDIA TRACHOMATIS RNA, TMA NOT DETECTED NOT DETECTED [facility] NEISSERIA GONORRHOEAE RNA, TMA NOT DETECTED NOT DETECTED [facility] COMMENT [facility] CLINICAL INFORMATION See Note [facility] Comment:None given LMP See Note [facility] Comment:NONE GIVEN PREV. PAP See Note [facility] Comment:NONE GIVEN PREV. BX See Note [facility] Comment:NONE GIVEN SOURCE See Note [facility] Comment:Cervix STATEMENT OF ADEQUACY See Note [facility] Comment: Satisfactory for evaluation. Endocervical/transformation zone component present. INTERPRETATION/RESU LT See Note [facility] Comment: Cytology Results: Negative for intraepithelial lesion or malignancy. COMMENT See Note [facility] Comment: This Pap test has been evaluated with computer assisted technology. SEAM CLOSER See Note [facility] Comment: CMG, CT(ASCP) CT screening location: [address] [address] COMMENT [facility] HPV MRNA E6/E7 Not Detected Not Detected [facility] Comment: Methodology: Dog Handler-Mediated Amplification This assay detects E6/E7 viral messenger RNA (mRNA) from 14 high-risk HPV types (16,18,31,33,35,39,45,51,52,56,58,59,66,68). Cervical sources are required for HPV testing. If a vaginal source from a patient who has had a total hysterectomy with removal of cervix was submitted, please contact the testing laboratory for alternative testing options. For additional information, please refer to http://Voxeet.QuesCom/faq/SSU763v1 (This link if provided for information/ educational purposes only.) Swab Cervix uteri structure / Unknown 05/28/2024 9:23 AM EDT 05/29/2024 5:06 AM EDT Narrative [email or web address] - 05/30/2024 5:24 PM EDT EXPLANATORY NOTE: [...] test SurePath(TM) specimens have been determined by [facility]. The modifications have not been cleared or approved by the FDA. This assay has been validated pursuant to the CLIA regulations and is used for clinical purposes. For additional information, please refer to https://Voxeet.QuesCom/faq/RSQ586 (This link is being provided for information/ educational purposes only.) Terry Couch MD LAB - PATHOLOGY AND CYTOLOGY AM BULATORY Final Result [facility] [address] [address], [facility] [address] [address] * MICROALBUMIN/CREATININE RATIO, URINE, RANDOM (09/28/2023 4:11 PM EDT) CREATININE, RANDOM URINE 119 20 - 275 mg/dL [facility] MICROALBUMIN 3.5 mg/dL [employer] [facility] Comment: Reference Range Not established MICROALBUMIN/CREA TININE RATIO, RANDOM URINE 29 <30 mg/g creat [facility] Comment: The ADA defines abnormalities in albumin excretion as follows: Albuminuria Category Result (mg/g creatinine) Normal to Mildly increased <30 Moderately increased 30-299 Severely increased > OR = 300 The ADA recommends that at least two of three specimens collected within a 3-6 month period be abnormal before considering a patient to be within a diagnostic category. Urine Urine specimen / Unknown 09/28/2023 4:11 PM EDT 09/28/2023 4:11 PM EDT Narrative [facility] - 10/04/2023 2:37 AM EDT FASTING:NO Keya Bhat NP LAB URINE AMBULATORY Final R esult Performing Organization Address City/State/[facility] Co de Phone Number [facility] [address] [place] [address], [facility] [address] [address] * EYE EXAM (03/09/2023 3:00 AM EST) 03/09/2023 3:00 AM EST us Keya Bhat NP OTHER Final Result * (ABNORMAL) LIPID PANEL (12/21/2022 4:21 PM EST) CHOLESTEROL, TOTAL 179 <200 mg/dL [facility] HDL CHOLESTEROL 40(L) > OR = 50 mg/dL [facility] TRIGLYCERIDES 222(H) <150 mg/dL [facility] Comment: If a non-fasting specimen was collected, consider repeat triglyceride testing on a fasting specimen if clinically indicated. Sloane et al. J. of Clin. Lipidol. 2015;9:129-169. LDL-CHOLESTEROL 105(H) 99 mg/dL (calc) [facility] Comment: Reference range: <100 Desirable range <100 mg/dL for primary prevention; <70 mg/dL for patients with CHD or diabetic patients with > or = 2 CHD risk factors. LDL-C is now calculated using the Quinn calculation, which is a validated novel method providing better accuracy than the Friedewald equation in the estimation of LDL-C. Kings SMITH et al. EMILY. 2013;310(19): 8763-9758 (http://education.LifeServe Innovations/faq/RML661) CHOL/HDLC RATIO 4.5 <5.0 (calc) [facility] NON-HDL CHOLESTEROL 139(H) <130 mg/dL (calc) [facility] Comment: For patients with diabetes plus 1 major ASCVD risk factor, treating to a non-HDL-C goal of <100 mg/dL (LDL-C of <70 mg/dL) is considered a therapeutic option. Blood Blood / Unknown 12/21/2022 4 :21 PM EST 12/21/2022 4:22 PM EST Charmaine DOTY LAB - BLOOD DRAW Final Result [facility] [address] [place] [address], [facility] [address] [place] [phone] * (ABNORMAL) COMPREHENSIVE METABOLIC PANEL (12/21/2022 4:21 PM EST) GLUCOSE 89 65 - 99 mg/dL [facility] Comment: Fasting reference interval UREA NITROGEN (BUN) 10 7 - 25 mg/dL [facility] CREATININE (blood) 0.61 0.50 - 0.97 mg/dL [facility] EGFR 122 > OR = 60 mL/min/1. 73m2 [facility] BUN/CREATININE RATIO SEE NOTE: [facility] Comment: Not Reported: BUN and Creatinine are within reference range. SODIUM 136 135 - 146 mmol/L [facility] POTASSIUM 4.3 3.5 - 5.3 mmol/L [facility] CHLORIDE 102 98 - 110 mmol/L [facility] CARBON DIOXIDE 24 20 - 32 mmol/L [facility] CALCIUM 9.7 8.6 - 10.2 mg/dL [facility] PROTEIN, TOTAL 8.1 6.1 - 8.1 g/dL [facility] [employer] ALBUMIN 4.4 3.6 - 5.1 g/dL [facility] [place] [employer] GLOBULIN 3.7 1.9 - 3.7 g/dL (calc) [facility] [place] [employer] ALBUMIN/GLOBULI N RATIO 1.2 1.0 - 2.5 (calc) [facility] BILIRUBIN, TOTAL 0.5 0.2 - 1.2 mg/dL [facility] ALKALINE PHOSPHATASE 65 31 - 125 U/L [facility] AST 37(H) 10 - 30 U/L [facility] [place] [employer] ALT 84(H) 6 - 29 U/L [facility] Blood Blood / Unknown 12/21/2022 4 :21 PM EST 12/21/2022 4:22 PM EST Charm[facility] DOT[facility] LAB - BLOOD DRAW Edited Result - Final [email or web address] [address] [address], [facility] [address] [phone] * HIV-1 & HIV-2 ANTIBODIES (04/01/2019 11:15 AM EST) [facility] HIV 1 AND 2 ANTIBODY SCREEN NEGATIVE NEGATIVE [employer] [facility] Comment: This assay is a 4th generation assay allowing for earlier detection of HIV infection by detecting the presence of the HIV-1 p24 antigen as well as the traditional antibodies to HIV type 1 (including group O) and type 2. Use of a 4th generation assay is the current CDC recommendation for HIV screening. Blood specimen (specimen) Blood / Unknown 04/01/2019 11:15 AM EST 04/01/2019 11:31 AM EST Narrative [facility] - 04/01/2019 6:50 PM EST [employer], [place] [address] Supervisor Spinning - Josefina Peterson MD PT ID [id number] ORD# [id number] Eli MALDONADO LAB - BLOOD DRAW Final Resu lt [facility] [address] [place] [address], [place] [phone] * (ABNORMAL) HEPATITIS A,B,C PANEL (10/16/2013 6:38 PM EDT) HEPATITIS B SURFACE ANTIBODY POSITIVE(A) NEGATIVE [facility] HEPATITIS B SURFACE ANTIGEN NEGATIVE NEGATIVE [facility] HEPATITIS C VIRUS ANTIBODY NEGATIVE NEGATIVE [facility] HEPATITIS B CORE ANTIBODY NEGATIVE NEGATIVE [facility] HEPATITIS A ANTIBODY TOTAL POSITIVE(A) NEGATIVE [facility] Blood specimen (specimen) Blood / Unknown 10/16/2013 6:38 PM EDT 10/16/2013 6:[address] [facility] - 10/16/2013 10:16 PM EDT [employer] [address] [place] [address] PT ID [id number] ORD# [id number] Fernando Mcbride MD LAB - BLOOD DRAW Edited Result - Final [facility] [address] [place] [address], [place] [phone] from Last 3 Months or Most Recently Relevant to Health Maintenance Insurance [employer] Member Subscriber Plan / Payer (Ef fective 2023-Present) Name:Greta Dove Relation to Subscriber:Self Name:Greta Dove Payer ID:[id number] Group ID:Not on file Type:Indemnity Address: [facility] [address] [place] [address] Care Teams Batterboard Setter Relationship Specialty Start Date End Date Keya Bhat NP [address] [place] [address] PCP - General Internal Medicine 10/04/21
--- OUTSIDE RECORDS SUMMARY | 2024-10-07 13:03 | XMS_ITS | Clinical Summary ---
Author Organization [facility] [employer] [facility] Address [address] [facility] [place] [address] Phone Care Team Providers Care Tile And Marble Setter Name Role Phone Keya Bhat Primary Care Provider [phone] Social History Tobacco Use Types Packs/Day Years Used Date Smoking Tobacco: Never Assessed Comments Unknown Sex and Gender Information Value Date Recorded Sex Assigned at Female 05/22/2024 4:24 PM EDT Legal Sex Female 5:49 AM EST Gender Identity Female 05/22/2024 4:24 PM EDT Sexual Orientation Not on file Plan of Treatment Health Maintenance Due Date Last Done Comments Diabetes: Annual Foot Exam 02/06/2000 Diabetes: Annual Retina Eye Exam 02/06/2000 Cervical Cancer Screening: Pap Smear 2011 Hepatitis B Vaccines (2 of 3 - 19+ 3-dose series) 12/22/2013 11/24/2013 Hepatitis C Screening 01/08/2022 Social Influencers of Health Screening 01/08/2022 Diabetes: Annual GFR (Glomerular Filtration Rate) 12/22/2023 12/21/2022 Depression Screening 02/06/2024 Diabetes: Blood Sugar Control Test (HGBA1C) 06/29/2024 12/31/2023 Diabetes: Annual Urine Albumin-Creatinine Ratio (uACR) 09/27/2024 09/28/2023, 11/17/2020, 04/01/2019 COVID-19 Vaccine ( season) 2024 01/24/2022, 07/06/2020, 05/31/2020 Influenza Vaccine (#1) 2024 , 11/04/2021, 11/20/2019, Additional history exists Cholesterol Screening (Lipid Panel) 12/22/2027 12/21/2022, 12/21/2022, 11/04/2021, Additional history exists DTaP,Tdap,and Td Vaccines (5 - Td or Tdap) 05/07/2034 05/07/2024, 01/25/2018, 06/24/2012, Additional history exists HIV Screening Completed 04/01/2019 Pneumococcal Vaccine: Pediatrics (0 to 5 Years) and At-Risk Patients (6 to 49 Years) Aged Out 05/07/2024 No longer eligible based on patient's age to complete this topic HIB Vaccines Aged Out No longer eligi ble based on patient's age to complete this topic HPV Vaccines Aged Out No longer eligi ble based on patient's age to complete this topic Hepatitis A Vaccines Aged Out No long er eligible based on patient's age to complete this topic IPV Vaccines Aged Out No longer eligi ble based on patient's age to complete this topic MMR Vaccines Aged Out No longer eligi ble based on patient's age to complete this topic Meningococcal ACWY Vaccine Aged Out N o longer eligible based on patient's age to complete this topic Meningococcal B Vaccine Aged Out No l onger eligible based on patient's age to complete this topic RSV Immunization Patients Under 20 months Aged Out No longer eligible based on patient's age to complete this topic Varicella Vaccines Aged Out No longer eligible based on patient's age to complete this topic Insurance [facility] PLAN Care Teams Tile And Marble Setter Relationship Specialty Start Date End Date eKya Bhat [address] [place] [address] PCP - General 05/13/24
== END 2024-10-07 11:23 | disposition home or self-care (01) ==
LOC: HO.HMGCX 11:22
PROVIDERS: PCP Family Medicine; Visit Provider Nurse Practitioner Family
DX: N20.0 Calculus of kidney (principal)
CPT/HCPCS: 76775

== ENCOUNTER → 2024-10-07 11:31 | Outpatient (BNV) | payer OTHER, SELFPAY | PROVIDERS: PCP Family Medicine; Visit Provider Radiology Diagnostic Radiology | DX: N20.0 Calculus of kidney (principal); N28.1 Cyst of kidney, acquired | CPT/HCPCS: 76775 ==

== ENCOUNTER 2024-12-09 09:08 | Outpatient (REF) | payer OTHER, SELFPAY ==
--- OUTSIDE RECORDS SUMMARY | 2024-12-08 16:20 | XMS_ITS | Encounter Summary ---
Author Organization [facility] Address [address] [place] [address] Care Team Providers Care Systems Analyst Engineer Name Role Phone Keya Bhat NP Primary Care Provider + [phone] Reason for Referral * Medication Prior Authorization - Closed Specialty Diagnoses / Procedures Referred By Vi dodson Referred To Contact Diagnoses Controlled type 2 diabetes mellitus without complication, without long-term current use of insulin Keya Bhat NP [address] [place] [address] Phone: tel: fax: Referral ID Status Reason Start Date Expiration Date Visits Re quested Visits Authorized [id number] Closed 1 1 * Medication Prior Authorization - Pending Review Specialty Diagnoses / Procedures Referred By Vi dodson Referred To Contact Diagnoses Controlled type 2 diabetes mellitus without complication, without long-term current use of insulin Keya Bhat NP [address] [place] [address] Phone: tel: fax: Referral ID Status Reason Start Date Expiration Date V isits Requested Visits Authorized [id number] Pending Review 1 1 Reason for Visit * Reason Comments Follow Up Encounter Details Date Type Department Care Team (Late st Contact Info) Description 12/08/2024 4:20 PM EST Office Visit [facility] [address] [place] [address] Keya Bhat NP [address] [place] [address] Anabel Slade [address] [place] [address] Social History Tobacco Use Types Packs/Day Years [...] file Not on file Not on file documented as of this encounter Last Filed Vital Signs Vital Sign Reading Time Taken Comments Blood Pressure 122/78 12/08/2024 4:02 PM EST Pulse 99 12/08/2024 4:02 PM EST Temperature 36.8 C (98.2 F) 12/08/2024 4:02 PM EST Respiratory Rate 16 12/08/2024 4:02 PM EST Oxygen Saturation 99% 12/08/2024 4:02 PM EST Inhaled Oxygen Concentration - - Weight 66.2 kg (146 lb) 12/08/2024 4:02 PM EST Height 154.9 cm (5' 1 ) 12/08/2024 4:02 PM EST Body Mass Index 27.59 12/08/2024 4:02 PM EST documented in this encounter Progress Notes * Keya Bhat, SOLE LEVELER - 12/08/2024 4:17 PM EST Subjective: CC: Follow Up Compensation Advisor: None, provider speaks patient's familiar language HPI: Greta Dove is a 34 year old female patient who presents to the office today for t2dm Lab Results Component Value Date HGBA1C 8.9 (H) 07/31/2024 HGBA1C 7.6 (H) 12/31/2023 HGBA1C 7.3 (H) 09/28/2023 Reported checking blood sugar at home, with a value of 105 this morning. Has a history of diabetes and has been taking Janumet for one year, with previous insurance coverage issues. Noted recent weight loss. Experiences tachycardia and palpitations, with an upcoming cardiology appointment in February. Has a history of kidney stones and saw a urologist in July. Denies alcohol and drug use. No issues with urination or bowel movements reported. Fatty liver disease mentioned. Health Maintenance Vaccine: none today Lifestyle measures:BMI follow up plan: The patient was counseled regarding nutrition and physical activity counseling provided. CVD risk: The ASCVD Risk score (Covington DK, et al., 2019) failed to calculate for the following reasons: The 2019 ASCVD risk score is only valid for ages 40 to 79 Tobacco Intervention:provided smoking cessation counseling Depression screen: DEPRESSION FU PROVIDED ([facility]): Counseling / education in visit and Assessed,follow-up as needed PHQ-9 Total Score (Auto Calculated) 0 at 05/07/2024 8:59 AM 05/07/2024 8:59 AM How many times in the past year have you had 4 or more drinks in a day? NONE How many times in the past year have you used a recreational drug or used a prescription medicationfor nonmedical reasons? NONE Did patient decline PHQ screening? No Little interest or pleasure in doing things Not at all Feeling down, depressed or hopeless [include irritable if under 18] Not at all PHQ2 Score 0 Little interest or pleasure in doing things Not at all Feeling down, depressed or hopeless [include irritable if under 18] Not at all Trouble falling or staying asleep, or sleeping too much Not at all Feeling tired or having little energy Not at all Poor appetite or overeating? Not at all Feeling bad about yourself - or that you are a failure or have let yourself or your family down Notat all Trouble concentrating on things, such as reading the newspaper or watching television? Not at all Moving or speaking so slowly that other people could have noticed? Or the opposite - being so fidgety or restless that you have been moving around a lot more than usual Not at all Thoughts you would be better off or of hurting yourself in some way Not at all If you checked off any problems, how difficult have these problems made it for you to do your work,take care of things at home, or get along with other people? Not difficult at all PHQ-9 Total Score (Auto Calculated) 0 Depression Severity: None-minimal ROS Review of Systems Remainder ROS: See HPI, systems reviewed and are otherwise negative or noncontributory. Past Medical Hx No Known Allergies Patient Active Problem List Diagnosis Abnormal liver enzymes Immune to hepatitis B Dyslipidemia (high LDL; low HDL) Positive PPD, treated Henoch-Schonlein purpura nephritis Hematuria and rash Seasonal allergic rhinitis Recurrent UTI Right middle lobe pulmonary nodule Diabetic mononeuropathy associated with type 2 diabetes mellitus Palpitations Uncontrolled type 2 diabetes mellitus with hypoglycemia Current Outpatient Medications on File Prior to Visit Medication Sig Dispense Refill levonorgestreL-ethinyl estrad (ALTAVERA, 28,) 0.15-0.03 mg per tablet Take 1 Tablet by mouth daily.84 Tablet 3 oxymetazoline (AFRIN SINUS, OXYMETAZOLINE,) 0.05 % nasal spray Place 2 Sprays into the nostril(s) 2(two) times daily 15 mL 0 No current facility-administered medications on file prior to visit. Objective: Vitals: 12/08/24 1602 BP: 122/78 Pulse: 99 Resp: 16 Temp: 98.2 ??F (36.8 ??C) TempSrc: Oral SpO2: 99% Weight: 146 lb (66.2 kg) Height: 5' 1 (1.549 m) Body mass index is 27.59 kg/m??. Physical Exam Vitals reviewed. Constitutional: General: She is not in acute distress. Appearance: Normal appearance. She is not ill-appearing. Cardiovascular: Rate and Rhythm: Normal rate and regular rhythm. Heart sounds: Normal heart sounds. No murmur heard. No friction rub. No gallop. Pulmonary: Effort: Pulmonary effort is normal. No respiratory distress. Breath sounds: Normal breath sounds. No wheezing. Skin: Capillary Refill: Capillary refill takes less than 2 seconds. Neurological: Mental Status: She is alert and oriented to person, place, and time. Psychiatric: Mood and Affect: Mood normal. Behavior: Behavior normal. Thought Content: Thought content normal. Judgment: Judgment normal. Assessment and Plan: Greta Dove is a 34 year old female patient who was seen today for evaluation of Follow Up E11.649 Uncontrolled type 2 diabetes mellitus with hypoglycemia, unspecified hypoglycemia coma status (primary encounter diagnosis) Plan : LIPID PANEL COMPREHENSIVE METABOLIC PANEL HEMOGLOBIN GLYCOSYLATED A1C Z76.0 Medication refill Plan : ATORVASTATIN 20 MG TABLET - Take 1 Tablet by mouth once daily. Z23 Immunization due Plan : RIV3 VACCINE PRESERVATIVE FREE FOR IM USE Uncontrolled diabetes mellitus: - Diabetes mellitus is currently uncontrolled, as evidenced by elevated HbA1c of 8.9 on July 31, 2024. - Sent refills for Janumet. Ordered laboratory tests: HbA1c, lipid panel, kidney function, and liver function tests. Recommended weight loss and exercise to improve glycemic control. Tachycardia and palpitations: - Tachycardia and palpitations are being monitored; pulse today is 99, which is within baseline range for this patient. Upcoming cardiology appointment in February 2025 for further evaluation, including Holter monitor. - Continue monitoring heart rate. Follow up with cardiology in February 2025. Hepatic steatosis: - Hepatic steatosis present. - Ordered liver enzyme tests. Recommended weight loss to help manage hepatic steatosis. Nephrolithiasis (kidney stones): - Nephrolithiasis confirmed. Under urology care. - Requested urology notes to review stone size and determine further management. Follow Up: Return in about 3 months (around 03/10/2025) for DM. Assessment and plan discussed with patient. Patient agrees with plan. Questions answered. documented in this encounter Miscellaneous Notes * Patient Instructions - Keya Bhat NP - 12/08/2024 4:22 PM EST If you are not able to keep your appointment please call 24-48 hours before your appointment to cancel or reschedule. documented in this encounter Plan of Treatment Scheduled Orders Name Type Priority Associated Diagnoses Orde r Schedule LIPID PANEL Routine Lab Routine Uncontrolled type 2 diabetes mellitus with hypoglycemia, unspecified hypoglycemia coma status Ordered: 12/08/2024 COMPREHENSIVE METABOLIC PANEL Routine Lab Routine Uncontrolled type 2 diabetes mellitus with hypoglycemia, unspecified hypoglycemia coma status Ordered: 12/08/2024 HEMOGLOBIN GLYCOSYLATED A1C Routine Lab Routine Uncontrolled type 2 diabetes mellitus with hypoglycemia, unspecified hypoglycemia coma status Ordered: 12/08/2024 documented as of this encounter Visit Diagnoses Diagnosis Uncontrolled type 2 diabetes mellitus with hypoglycemia, unspecified hypoglycemia coma status- Primary Medication refill Issue of repeat prescriptions Immunization due Need for prophylactic vaccination and inoculation against unspecified single disease documented in this encounter Additional Health Concerns Assessment Noted Time PHQ-9 Depression Total Score: 0 05/08/19 25 8:59 AM PDT A Depression follow-up plan has been documented for the patient 12/08/2024 4:32 PM PST documented as of this encounter Care Teams Systems Analyst Engineer Relationship Specialty Start Date End Date Keya Bhat NP [address] [place] [address] PCP - General Internal Medicine 10/04/21 documented as of this encounter
--- OUTSIDE RECORDS SUMMARY | 2024-12-09 09:53 | XMS_ITS | Clinical Summary ---
Author Organization [facility] Address [address] [place] [address] Care Team Providers Care Cat Cracker Operator Name Role Phone Keya Bhat NP Primary Care Provider + [phone] Source Comments PLEASE NOTE, if this patient is a minor, it may be UNLAWFUL to discuss sensitive information that is contained in these records (such as FAMILY PLANNING, MENTAL HEALTH or SUBSTANCE ABUSE) with the minor patient's parent or other person without the patient's specific authorization.[facility] Allergies No known active allergies Medications oxymetazoline (AFRIN SINUS, OXYMETAZOLINE,) 0.05 % nasal sprayIndication s:Viral upper respiratory tract infection Place 2 Sprays into the nostril(s) 2 (two) times daily 15 mL 03/21/19 25 Active levonorgestreL- ethinyl estrad (ALTAVERA, 28,) 0.15-0.03 mg per tabletIndicatio ns:Medication refill Take 1 Tablet by mouth daily. 84 Tablet 3 11/19/19 25 Active atorvastatin (LIPITOR) 20 mg tabletIndicatio ns:Medication refill Take 1 Tablet by mouth once daily. 90 Tablet 1 12/09/19 25 Active blood sugar diagnostic (FREESTYLE LITE STRIPS) strips once daily. 100 Each 1 12/09/19 25 Active blood-glucose meter monitoring kit Pt is Diabetic. 73.03. 1 Each 12/09/19 25 Active flash glucose sensor (FREESTYLE CHIO 14 DAY SENSOR) kit 1 Each by miscellaneous route every 14 (fourteen) days. 2 Kit 12/09/19 25 Active SITagliptin phos-metformin (JANUMET) 50-1,000 mg per tablet Take 1 Tablet by mouth 2 (two) times daily with a meal TAKE 1 TABLET BY MOUTH TWICE DAILY WITH FOOD. 180 Tablet 3 12/09/19 25 Active blood-glucose meter monitoring kitIndications: Prediabetes Pt is Diabetic. 73.03 1 Each 06/04/19 19 025 Discontin ued(Reord er (E-Cancel Not Sent)) blood sugar diagnostic (FREESTYLE LITE STRIPS) stripsIndicatio ns:Prediabetes USE ONCE DAILY TO CHECK BLOOD SUGAR 100 Each 1 12/07/19 23 025 Discontin ued(Reord er (E-Cancel Not Sent)) flash glucose sensor (FREESTYLE CHIO 14 DAY SENSOR) kitIndications: Controlled type 2 diabetes mellitus without complication, without long-term current use of insulin 1 Each by miscellaneous route every 14 (fourteen) days 2 Kit 12/22/19 23 025 Discontin ued(Reord er (E-Cancel Not Sent)) SITagliptin phos-metformin (JANUMET) 50-1,000 mg per tabletIndicatio ns:Controlled type 2 diabetes mellitus without complication, without long-term current use of insulin Take 1 Tablet by mouth 2 (two) times daily with a meal TAKE 1 TABLET BY MOUTH TWICE DAILY WITH FOOD 180 Tablet 3 12/27/19 24 025 Discontin ued(Reord er (E-Cancel Not Sent)) ALTAVERA, 28, 0.15-0.03 mg per tabletIndicatio ns:Medication refill TAKE 1 TABLET BY MOUTH EVERY DAY 84 Tablet 3 05/02/19 25 025 Discontin ued(Reord er (E-Cancel Not Sent)) atorvastatin (LIPITOR) 20 mg tabletIndicatio ns:Medication refill TAKE 1 TABLET BY MOUTH EVERY DAY 90 Tablet 1 11/04/19 25 025 Discontin ued(Reord er (E-Cancel Not Sent)) Active Problems Problem Noted Date Diagnosed Date Uncontrolled type 2 diabetes mellitus with hypog lycemia 12/08/2024 Diabetic mononeuropathy asso ciated with type 2 diabetes mellitus 05/07/2024 Palpitations 05/07/2024 Overview (07/31/2024): 04/10/24-04/23/24 Holter [...] months 06/2022: see [facility] , [facility] UTI prevention, imagining to r/o structural abnormalities, recommended then follow up Seasonal allergic rhinitis 07/28/2019 Hematuria and rash 04/26/2017 Overview (04/27/2017): Renal [...] ) Advise avoid NSAIDs Henoch-Schonlein purpura nephritis 02/13/2017 Overview (02/13/2017): No tx at this time by rheumatology unless has another flair- see notes in the chart Positive PPD, treated 12/23/2014 Overview (12/23/2014): Pt was treated in [place] with Rifampin for 4 months Dyslipidemia (high [...] Exposure to COVID-19 virus 03/01/2020 0 07/31/2024 Controlled type 2 diabetes m ellitus without complication, without long-term current use of insulin ([facility]) 09/03/2017 12/08/2024 Strep pharyngitis 04/04/2017 12/03/2017 Overview (04/04/2017): Positive Henoch-Schonlein purpura 01/31/2017 S/P laparoscopic appendectomy 08/10/2014 07/31/2024 Overview (08/10/2014): Done 08/01 at [facility] by Dr Eliazar Nicholson Pap smear for cervical cancer screening 01/16/2014 07/31/2024 Overview (01/16/2014): 11/20/13: NIL NO ECC's; per guidelines routine screening Next pap due: 11/2016(age 26yr)01/16/14 * pt does have elevated LFT's no etiology yet Encounters Date Type Department Care Team Description 12/08/2024 4:20 PM EST Office Visit [facility] Maki Gant [phone] [place] [phone] Keya Bhat, Anabel Mendez from Last 3 Months Immunizations Immunization Administration Dates Next Due Flu, Preservative Free 12/21/2022,2021,11/20/2019,2018,12/03/2017,10/02/2016 Hep B, Adult/Adol ([id number]-A-YOEFE/RECOMBIVAX-ADULT) 11/24/2013 Influenza (FLUBLOK),recombinant,injectable,pres ervative Free 12/08/2024 MODERNA COVID-19 VACCINE BIV ALENT, BLUE CAP, [...] Mass Index 27.59 12/08/2024 4:02 PM EST Plan of Treatment Health Maintenance Due Date Last Done Comments Dental Examination 1990 HPV Screening (self-collect) 1990 HPV Screening 1990 Diabetes Foot Exam 12/22/2023 12/21/2022, 0 04/01/2019, 04/01/2019 Lipid Screening 12/22/2023 12/21/2022, 10/08, 10/18/2020, Additional history exists Serum Creatinine 12/22/2023 12/21/2022, , 06/23/2021, Additional history exists Urine Albumin Creatinine Rat io Screening 09/27/2024 09/28/2023, 11/17/2020, 04/01/2019 [id number] ( season) 2024 01/24/2022, 07/06/2020, 05/31/2020 Hemoglobin A1c 10/31/2024 07/31/2024, 12/07, 09/28/2023, Additional history exists Anxiety Screening 05/07/2025 05/07/2024 Relationship Safety Screening/Counseling 05/07/2025 05/07/2024, 12/21/2022, 08/19/2021, Additional history exists Annual Wellness (Adult): Indicated (All Coverage) 07/31/2025 07/31/2024, 12/21/2022, 11/03/2021, Additional history exists Retinopathy Screening 07/31/2025 07/31/2024 (Managed by Outside Provider), 03/09/2023, 02/23/2022 Tobacco Screening 07/31/2025 07/31/2024, , 05/17/2022 Hypertension Screening (#1) 12/08/2025 Cervical Cancer Screening 05/29/2027 Pap + HPV 05/29/2027 05/28/2024, 02/28/2021 Pap Smear 05/29/2027 05/28/2024, 02/06, 03/01/2017 (Managed by Outside Provider), Additional history exists Imm-DTaP/Tdap/Td (5 - Td or Tdap) 05/07/2034 05/07/2024, 12/06/2015, 06/24/2012, Additional history exists Hepatitis C Screening Completed 10/16/2013 Imm-Hepatitis B Discontinued 11/24/2013 HIV Screening Completed 04/01/2019 Alcohol and Drug Screen Completed 05/08/19, 09/24/2023, 03/23/2023, Additional history exists Depression Annual Screen Completed 05/07/2024, 07/07 Imm-Pneumococcal Completed 05/07/2024 Imm-Influenza Completed 12/08/2024, 12/06, 11/04/2021, Additional history exists Cervical Ablation/Cold-Knife Conization Discontinued Cervical Cryotherapy Discontinued Colposcopy Discontinued Excision/Leep Discontinued HPV Genotyping Discontinued Imm-HPV Discontinued Vaginal Pap Discontinued Vulvoscopy Discontinued Procedures Procedure Name Priority Date/Time Associated Diagnosis Comments HEMOGLOBIN GLYCOSYLATED A1C Routine 07/31/2024 9:31 AM EDT Uncontrolled type 2 diabetes mellitus with hyperglycemia ([facility]) THINPREP IMAGING PAP, HPV MRNA E6/E7 RFLEX HPV 16,18/45 CT/NG Routine 05/28/2024 9:23 AM EDT Screening for HPV (human papillomavirus) MICROALBUMIN/CREATINI NE RATIO, URINE, RANDOM Routine 09/28/2023 4:11 PM EDT Controlled type 2 diabetes mellitus without complication, without long-term current use of insulin ([facility]) EYE EXAM 03/09/2023 3:00 AM EST COMPREHENSIVE METABOLIC PANEL Routine 12/21/2022 4:21 PM EST Controlled type 2 diabetes mellitus without complication, without long-term current use of insulin ([facility]) LIPID PANEL Routine 12/21/2022 4:21 PM EST [...] AM EDT) HEMOGLOBIN A1C 8.9(H) <5.7 % [facility] Comment: For someone without known diabetes, a [...] LAB - BLOOD DRAW Final Resul t [facility] [address] [place] [address], [facility] [place] [facility] [address] [place] [phone] * THINPREP IMAGING PAP, HPV MRNA E6/E7 RFLEX HPV 16,18/45 CT/NG (05/28/2024 9:23 AM EDT) CHLAMYDIA TRACHOMATIS RNA, TMA NOT DETECTED NOT DETECTED [facility] NEISSERIA GONORRHOEAE RNA, TMA NOT DETECTED NOT DETECTED [facility] COMMENT [facility] CLINICAL INFORMATION See Note [facility] Comment:None given LMP See Note [facility] Comment:NONE GIVEN PREV. PAP See Note [facility] Comment:NONE GIVEN PREV. BX See Note [facility] Comment:NONE GIVEN SOURCE See Note [facility] Comment:Cervix STATEMENT OF ADEQUACY See Note [facility] Comment: Satisfactory for evaluation. Endocervical/transformation zone component present. INTERPRETATION/RESU LT See Note [facility] Comment: Cytology Results: Negative for intraepithelial lesion or malignancy. COMMENT See Note [facility] Comment: This Pap test has been evaluated with computer assisted technology. USER INTERFACE DEVELOPER See Note [employer] Comment: CMG, CT(ASCP) CT screening location: [address] [address] COMMENT [facility] HPV MRNA E6/E7 Not Detected Not Detected [facility] Comment: Methodology: Deep Fat Fry Cook-Mediated Amplification This assay detects E6/E7 viral messenger RNA (mRNA) from 14 high-risk HPV types (16,18,31,33,35,39,45,51,52,56,58,59,66,68). Cervical sources are required for HPV testing. If a vaginal source from a patient who has had a total hysterectomy with removal of cervix was submitted, please contact the testing laboratory for alternative testing options. For additional information, please refer to http://[employer].[facility]/faq/LWC093h3 (This link if provided for information/ educational purposes only.) Swab Cervix uteri structure / Unknown 05/28/2024 9:23 AM EDT 05/29/2024 5:06 AM EDT Narrative [facility] [employer] - 05/30/2024 5:24 PM EDT EXPLANATORY NOTE: [...] test SurePath(TM) specimens have been determined by [employer]. The modifications have not been cleared or approved by the FDA. This assay has been validated pursuant to the CLIA regulations and is used for clinical purposes. For additional information, please refer to https://[employer].[facility]/faq/QMB912 (This link is being provided for information/ educational purposes only.) Terry Couch MD LAB - PATHOLOGY AND CYTOLOGY AM BULATORY Final Result [facility] [address] [place] [address], [facility] [address] [address] * MICROALBUMIN/CREATININE RATIO, URINE, RANDOM (09/28/2023 4:11 PM EDT) CREATININE, RANDOM URINE 119 20 - 275 mg/dL [employer] [facility] MICROALBUMIN 3.5 mg/dL [facility] Comment: Reference Range Not established MICROALBUMIN/CREA TININE RATIO, RANDOM URINE 29 <30 mg/g creat [employer] [facility] Comment: The ADA defines abnormalities in [...] PM EDT 09/28/2023 4:11 PM EDT Narrative [facility] - 10/04/2023 2:37 AM EDT FASTING:NO us Keya Bhat NP LAB URINE AMBULATORY Final R esult [facility] [address] [address], [facility] [address] [place] [address] * EYE EXAM (03/09/2023 3:00 AM EST) 03/09/2023 3:00 AM EST us Keya Bhat MAKE UP GIRL OTHER Final Result * (ABNORMAL) LIPID PANEL (12/21/2022 4:21 PM EST) CHOLESTEROL, TOTAL 179 <200 mg/dL [employer] [facility] HDL CHOLESTEROL 40(L) > OR = 50 mg/dL [facility] TRIGLYCERIDES 222(H) <150 mg/dL [facility] Comment: If a non-fasting specimen was collected, consider repeat triglyceride testing on a fasting specimen if clinically indicated. Sloane et al. J. of Clin. Lipidol. 2015;9:129-169. LDL-CHOLESTEROL 105(H) 99 mg/dL (calc) [facility] Comment: Reference range: <100 Desirable range <100 mg/dL for primary prevention; <70 mg/dL for patients with CHD or diabetic patients with > or = 2 CHD risk factors. LDL-C is now calculated using the Kings-Kash calculation, which is a validated novel method providing better accuracy than the Friedewald equation in the estimation of LDL-C. Kings SMITH et al. EMILY. 2013;310(19): 9265-6764 (http://education.[employer]/faq/XZZ223) CHOL/HDLC RATIO 4.5 <5.0 (calc) [facility] NON-HDL CHOLESTEROL 139(H) <130 mg/dL (calc) [facility] Comment: For patients with diabetes plus 1 major ASCVD risk factor, treating to a non-HDL-C goal of <100 mg/dL (LDL-C of <70 mg/dL) is considered a therapeutic option. Blood Blood / Unknown 12/21/2022 4 :21 PM EST 12/21/2022 4:22 PM EST Charmaine DOTY LAB - BLOOD DRAW Final Result [facility] [address] [address], [facility] [address] [place] [address] * (ABNORMAL) COMPREHENSIVE METABOLIC PANEL (12/21/2022 4:21 PM EST) GLUCOSE 89 65 - 99 mg/dL [facility] Comment: Fasting reference interval UREA NITROGEN (BUN) 10 7 - 25 mg/dL [facility] CREATININE (blood) 0.61 0.50 - 0.97 mg/dL [facility] EGFR 122 > OR = 60 mL/min/1. 73m2 [facility] BUN/CREATININE RATIO SEE NOTE: [facility] Comment: Not Reported: BUN and Creatinine are within reference range. SODIUM 136 135 - 146 mmol/L [facility] POTASSIUM 4.3 3.5 - 5.3 mmol/L [facility] CHLORIDE 102 98 - 110 mmol/L [facility] CARBON DIOXIDE 24 20 - 32 mmol/L [facility] CALCIUM 9.7 8.6 - 10.2 mg/dL [facility] PROTEIN, TOTAL 8.1 6.1 - 8.1 g/dL [facility] ALBUMIN 4.4 3.6 - 5.1 g/dL [facility] GLOBULIN 3.7 1.9 - 3.7 g/dL (calc) [facility] ALBUMIN/GLOBULI N RATIO 1.2 1.0 - 2.5 (calc) [facility] BILIRUBIN, TOTAL 0.5 0.2 - 1.2 mg/dL [facility] ALKALINE PHOSPHATASE 65 31 - 125 U/L [facility] AST 37(H) 10 - 30 U/L [facility] ALT 84(H) 6 - 29 U/L [facility] Blood Blood / Unknown 12/21/2022 4 :21 PM EST 12/21/2022 4:22 PM EST Charmaine DOTY LAB - BLOOD DRAW Edited Result - Final Performing Organization Address City/[facility]/ZIP Co de Phone Number [facility] [address] [address], [facility] [address] [address] * HIV-1 & HIV-2 ANTIBODIES (04/01/2019 11:15 AM EST) Pathologist [facility] HIV 1 AND 2 ANTIBODY SCREEN NEGATIVE NEGATIVE [facility] Comment: This assay is a 4th [...] AM EST 04/01/2019 11:31 AM EST Narrative [facility] - 04/01/2019 6:50 PM EST [facility] [email or web address], [place] [address] Chemists - Josefina Peterson MD PT ID [id number] ORD# [id number] Eli MALDONADO LAB - BLOOD DRAW Final Resu lt Performing Organization Address City/[facility]/ZIP Co de Phone Number [address] [address], * (ABNORMAL) HEPATITIS A,B,C PANEL (10/16/2013 6:38 PM EDT) HEPATITIS B SURFACE ANTIBODY POSITIVE(A) NEGATIVE [facility] HEPATITIS B SURFACE ANTIGEN NEGATIVE NEGATIVE [facility] HEPATITIS C VIRUS ANTIBODY NEGATIVE NEGATIVE [facility] HEPATITIS B CORE ANTIBODY NEGATIVE NEGATIVE [facility] HEPATITIS A ANTIBODY TOTAL POSITIVE(A) NEGATIVE [facility] Blood specimen (specimen) Blood / Unknown 10/16/2013 6:38 PM EDT 10/16/2013 6:57 PM EDT Narrative [facility] - 10/16/2013 10:16 PM EDT [facility] [address] [place] [address] PT ID [id number] ORD# [id number] us Fernando Mcbride MD LAB - BLOOD DRAW Edited Result - Final [facility] [address] [place] [address], from Last 3 Months or Most Recently Relevant to Health Maintenance Insurance [employer] Member Subscriber Plan / Payer (Ef fective 2023-Present) Name:Greta Dove Relation to Subscriber:Self Name:Greta Dove Payer ID:[id number] Group ID:Not on file Type:Indemnity Address: [facility] [address] [place] [address] Care Teams Cat Cracker Operator Relationship Specialty Start Date End Date Keya Bhat NP [address] [place] [address] PCP - General Internal Medicine 10/04/21
--- OUTSIDE RECORDS SUMMARY | 2024-12-09 09:53 | XMS_ITS | Clinical Summary ---
Author Organization [facility] Address [address] [place] [address] Phone Care Team Providers Care Milk Route Deliverer Name Role Phone Keya Bhat Primary Care Provider [phone] Encounters Date Type Department Care Team Description 11/28/2024 Telephone [facility] [address] [place] [phone] Keya Bhat 11/28/2024 Telephone [facility] [address] [place] [phone] Keya Bhat from Last 3 Months Social History Tobacco Use Types Packs/Day Years Used Date Smoking Tobacco: Never Assessed Comments Unknown Sex and Gender Information Value Date Recorded Sex Assigned at Female 05/22/2024 4:24 PM EDT Legal Sex Female 5:49 AM EST Gender Identity Female 05/22/2024 4:24 PM EDT Sexual Orientation Not on file Plan of Treatment Upcoming Encounters Date Type Department Care Team (Late st Contact Info) Description 03/04/2025 8:50 AM EST Office Visit [facility] [address] [place] [address] Jordon Case MD [address] [place] [address] [address] [place] [address] Health Maintenance Due Date Last Done Comments Diabetes: Annual Foot Exam 02/06/2000 Diabetes: Annual Retina Eye Exam 02/06/2000 Cervical Cancer Screening: Pap Smear 2011 Hepatitis B Vaccines (2 of 3 - 19+ 3-dose series) 12/22/2013 11/24/2013 HPV Vaccines (1 - 3-dose SCDM series) 2017 Hepatitis C Screening 01/08/2022 Social Influencers of [...] 05/07/2034 05/07/2024, 01/25/2018, 06/24/2012, Additional history exists RSV Immunization Adult Patients (1 - 1-dose 75+ series) 2065 HIV Screening Completed 04/01/2019 Pneumococcal Vaccine: Pediatrics [...] patient's age to complete this topic Insurance [facility] Care Teams Milk Route Deliverer Relationship Specialty Start Date End Date Keya Bhat [address] [place] [id number] PCP - General 05/13/24
[2024-12-09 10:52] LABS: Blood Urea Nitrogen 9 mg/dL (9-16); Estimated Glomerular Filt Rate > 60
== END 2024-12-09 09:09 | disposition home or self-care (01) ==
LOC: HO.LAB 09:08
PROVIDERS: Visit Provider Nurse Practitioner Family
DX: R39.15 Urgency of urination (principal); R10.9 Unspecified abdominal pain
CPT/HCPCS: 36415; 82565; 84520

== ENCOUNTER 2024-12-15 08:04 | Outpatient (REF) | payer OTHER, SELFPAY ==
--- OUTSIDE RECORDS SUMMARY | 2024-12-15 18:04 | XMS_ITS | Clinical Summary ---
Author Organization [facility] Address [address] [place] [address] Care Team Providers Care Cpo Name Role Phone Keya Bhat NP Primary Care Provider + [phone] Source Comments PLEASE NOTE, if this patient [...] months 06/2022: [facility] , [facility] UTI prevention, imagining to r/o structural abnormalities, [...] 12/23/2014 Overview (12/23/2014): [place]if[place] for 4 months Dyslipidemia (high [...] complication, without long-term current use of insulin ([facility]) 09/03/2017 12/08/2024 Strep pharyngitis 04/04/2017 12/03/2017 Overview (04/04/2017): Positive Henoch-Schonlein purpura 01/31/2017 S/P laparoscopic appendectomy 08/10/2014 07/31/2024 Overview (08/10/2014): Done 08/01 at [facility] by Dr Eliazar Nicholson Pap smear for cervical cancer screening 01/16/2014 07/31/2024 Overview (01/16/2014): 11/20/13: NIL NO ECC's; per guidelines routine screening Next pap due: 11/2016(age 26yr)01/16/14 * pt does have elevated LFT's no etiology yet Encounters Date Type Department Care Team Description 12/10/2024 Results Follow-Up [facility] [address] [place] [address] Keya Bhat NP 12/08/2024 4:20 PM EST Office Visit [facility] [address] [place] [address] Keya Bhat NP Tiwari, Roshni from Last 3 Months Immunizations Immunization Administration Dates Next Due Flu, Preservative Free 12/21/2022,2021,11/20/2019,2018,12/03/2017,10/02/2016 Hep B, Adult/Adol ([id number]-GQJWY/RECOMBIVAX-ADULT) 11/24/2013 Influenza (FLUBLOK),recombinant,injectable,pres ervative Free 12/08/2024 MODERNA [...] Rat io Screening 09/27/2024 09/28/2023, 11/17/2020, 04/01/2019 [id number] ( season) 2024 01/24/2022, 07/06/2020, 05/31/2020 Hemoglobin [...] complication, without long-term current use of insulin ([facility]) EYE EXAM 03/09/2023 3:00 AM EST [...] 8.6(H) <5.7 % 12/10/2024 5:15 AM EST [facility] Blood Blood / Unknown 12/09/2024 8 :33 AM EST 12/10/2024 3:37 AM EST [facility] - 12/10/2024 5:18 AM EST FASTING:YES For [...] LAB - BLOOD DRAW Final Resul t [facility] [address] [place] [address], [facility] [address] [address] * (ABNORMAL) LIPID PANEL Routine (12/09/2024 8:33 AM EST) [facility] CHOLESTEROL, TOTAL 85 <200 mg/dL 12/10/2024 7:29 AM EST [facility] HDL CHOLESTEROL 32(L) > OR = 50 mg/dL 12/10/2024 7:29 AM EST [facility] TRIGLYCERIDES 114 <150 mg/dL 12/10/2024 7:29 AM EST [facility] LDL-CHOLESTEROL 33 mg/dL (calc) 12/10/2024 7:29 AM EST [facility] CHOL/HDLC RATIO 2.7 <5.0 (calc) 12/10/2024 7:29 AM EST [facility] NON-HDL CHOLESTEROL 53 <130 mg/dL (calc) 12/10/2024 7:29 AM [facility] Blood Blood / Unknown 12/09/2024 8 :33 AM EST 12/10/2024 5:55 AM EST [facility] - 12/10/2024 7:31 AM EST FASTING:YES Reference [...] LDL-C. Kings SS et al. EMILY. 2013;310(19): 9265-3897 (http://education.Encentuate/faq/JQX966) For patients with diabetes plus 1 major ASCVD risk factor, treating to a non-HDL-C goal of <100 mg/dL (LDL-C of <70 mg/dL) is considered a therapeutic option. Keya Bhat NP LAB - BLOOD DRAW Final Resul t [facility] [address] [address], [facility] [address] [address] * (ABNORMAL) COMPREHENSIVE METABOLIC PANEL Routine (12/09/2024 8:33 AM EST) GLUCOSE 142(H) 65 - 99 mg/dL 12/10/2024 7:29 AM EST [facility] UREA NITROGEN (BUN) 9 7 - 25 mg/dL 12/10/2024 7:29 AM EST [facility] CREATININE (blood) 0.28(L) 0.50 - 0.97 mg/dL 12/10/2024 7:29 AM EST [facility] EGFR 145 > OR = 60 mL/min/1. 73m2 12/10/2024 7:29 AM EST [facility] BUN/CREATININE RATIO 32(H) 6 - 22 (calc) 12/10/2024 7:29 AM EST [facility] SODIUM 133(L) 135 - 146 mmol/L 12/10/2024 7:29 AM EST [facility] POTASSIUM 4.0 3.5 - 5.3 mmol/L 12/10/2024 7:29 AM EST [facility] [place] CHLORIDE 101 98 - 110 mmol/L 12/10/2024 7:29 AM EST [facility] CARBON DIOXIDE 25 20 - 32 mmol/L 12/10/2024 7:29 AM EST [facility] CALCIUM 9.2 8.6 - 10.2 mg/dL 12/10/2024 7:29 AM EST [facility] PROTEIN, TOTAL 7.2 6.1 - 8.1 g/dL 12/10/2024 7:29 AM EST [facility] ALBUMIN 3.7 3.6 - 5.1 g/dL 12/10/2024 7:29 AM EST [facility] GLOBULIN 3.5 1.9 - 3.7 g/dL (calc) 12/10/2024 7:29 AM EST [facility] ALBUMIN/GLOBULI N RATIO 1.1 1.0 - 2.5 (calc) 12/10/2024 7:29 AM EST [facility] BILIRUBIN, TOTAL 0.9 0.2 - 1.2 mg/dL 12/10/2024 7:29 AM EST [facility] ALKALINE PHOSPHATASE 87 31 - 125 U/L 12/10/2024 7:29 AM EST [facility] AST 39(H) 10 - 30 U/L 12/10/2024 7:29 AM EST [facility] ALT 41(H) 6 - 29 U/L 12/10/2024 7:29 AM EST [facility] Blood Blood / Unknown 12/09/2024 8 :33 AM EST 12/10/2024 5:55 AM EST Narrative [facility] - 12/10/2024 7:31 AM EST FASTING:YES . Fasting reference interval . For someone without known diabetes, a glucose value >125 mg/dL indicates that they may have diabetes and this should be confirmed with a follow-up test. . us Keya Bhat NP LAB - BLOOD DRAW Final Resul t [facility] [address] [place] [address], [facility] [address] [place] [phone] * [facility] PAP, HPV MRNA E6/E7 RFLEX HPV 16,18/45 CT/NG (05/28/2024 9:23 AM EDT) CHLAMYDIA TRACHOMATIS RNA, TMA NOT DETECTED NOT DETECTED DDN NEISSERIA GONORRHOEAE RNA, TMA NOT DETECTED NOT DETECTED DDN COMMENT DDN CLINICAL INFORMATION See Note [facility] Comment:None given LMP See Note [facility] Comment:NONE GIVEN PREV. PAP See Note [facility] Comment:NONE GIVEN PREV. BX See Note [facility] Comment:NONE GIVEN SOURCE See Note [facility] Comment:Cervix STATEMENT OF ADEQUACY See Note [facility] Comment: Satisfactory for evaluation. Endocervical/transformation zone component present. INTERPRETATION/RESU LT See Note [facility] Comment: Cytology Results: Negative for intraepithelial lesion or malignancy. COMMENT See Note [facility] Comment: This Pap test has been evaluated with computer assisted technology. ASSURANCE ASSOCIATE See Note [facility] Comment: CMG, CT(ASCP) CT screening location: [address] [address] COMMENT [facility] HPV MRNA E6/E7 Not Detected Not Detected [facility] Comment: Methodology: Documentation Clerk-Mediated Amplification This assay detects E6/E7 viral messenger RNA (mRNA) from 14 high-risk HPV types (16,18,31,33,35,39,45,51,52,56,58,59,66,68). Cervical sources are required for HPV testing. If a vaginal source from a patient who has had a total hysterectomy with removal of cervix was submitted, please contact the testing laboratory for alternative testing options. For additional information, please refer to http://Intradiem.Mlog/faq/WRO689h4 (This link if provided for information/ educational purposes only.) Swab Cervix uteri structure / Unknown 05/28/2024 9:23 AM EDT 05/29/2024 5:06 AM EDT Narrative [facility] - 05/30/2024 5:24 PM EDT EXPLANATORY [...] test SurePath(TM) specimens have been determined by [employer]. The modifications have not been cleared or approved by the FDA. This assay has been validated pursuant to the CLIA regulations and is used for clinical purposes. For additional information, please refer to https://education.Mlog/faq/MDS892 (This link is being provided for information/ educational purposes only.) us Terry Couch MD LAB - PATHOLOGY AND CYTOLOGY AM BULATORY Final Result Performing Organization Address [facility] Co de Phone Number [facility] [address] [address], [facility] [address] [address] * MICROALBUMIN/CREATININE RATIO, URINE, RANDOM (09/28/2023 4:11 PM EDT) CREATININE, RANDOM URINE 119 20 - 275 mg/dL [facility] MICROALBUMIN 3.5 mg/dL [email or web address] Comment: Reference Range Not established MICROALBUMIN/CREA TININE RATIO, RANDOM URINE 29 <30 mg/g creat [facility] Comment: The ADA defines abnormalities in albumin [...] PM EDT 09/28/2023 4:11 PM EDT Narrative [facility] - 10/04/2023 2:37 AM EDT FASTING:NO us Keya Bhat NP LAB URINE AMBULATORY Final R esult Performing Organization Address [facility] Co de Phone Number [facility] [address] [address], [facility] [address] [address] * EYE EXAM (03/09/2023 3:00 AM EST) 03/09/2023 3:00 AM EST us Keya Bhat [employer]STRUCTION [employer]ER OTHER Final Result * HIV-1 & HIV-2 ANTIBODIES (04/01/2019 11:15 AM EST) Pathologist [facility] HIV 1 AND 2 ANTIBODY SCREEN NEGATIVE NEGATIVE [facility] Comment: This assay is a [...] AM EST 04/01/2019 11:31 AM EST [facility] - 04/01/2019 6:50 PM EST [employer], [place] [address] Carpenter Prototype - Josefina Peterson MD PT ID [id number] ORD# [id number] Eli BRUMFIELDP LAB - BLOOD DRAW Final Resu lt Performing Organization Address [facility] [place] [address], * (ABNORMAL) HEPATITIS A,B,C PANEL (10/16/2013 6:38 PM EDT) [facility] HEPATITIS B SURFACE ANTIBODY POSITIVE(A) NEGATIVE [facility] HEPATITIS B SURFACE ANTIGEN NEGATIVE NEGATIVE [facility] HEPATITIS C VIRUS ANTIBODY NEGATIVE NEGATIVE [facility] HEPATITIS B CORE ANTIBODY NEGATIVE NEGATIVE [facility] HEPATITIS A ANTIBODY TOTAL POSITIVE(A) NEGATIVE [facility] Blood specimen (specimen) Blood / Unknown 10/16/2013 6:38 PM EDT 10/16/2013 6:[address] [facility] - 10/16/2013 10:16 PM EDT [facility] [employer] [address] [place] [address] PT ID [id number] ORD# [id number] Fernando Mcbride MD LAB - BLOOD DRAW Edited Result - Final Performing Organization Address [facility] [place] [address], from Last 3 Months or Most Recently Relevant to Health Maintenance Insurance [employer] Member Subscriber Plan / Payer (Ef fective 2023-Present) Name:Greta Dove Relation to Subscriber:Self Name:Greta Dove Payer ID:[id number] Group ID:Not on file Type:Indemnity Address: [facility] [address] [place] [address] Care Teams Cpo Relationship Specialty Start Date End Date Keya Bhat NP [address] [place] [address] PCP - General Internal Medicine 10/04/21
--- OUTSIDE RECORDS SUMMARY | 2024-12-15 18:04 | XMS_ITS | Encounter Summary ---
Author Organization [facility] Address [address] [place] [address] Care Team Providers Care Assistant Auditor Name Role Phone Keya Bhat NP Primary Care Provider + [phone] Reason for Referral * Diabetes (Routine) - New Request Specialty Diagnoses / Procedures Referred By Contflavio t Referred To Contact Family Practice Diagnoses Uncontrolled type 2 diabetes mellitus with hypoglycemia, unspecified hypoglycemia coma status Keya Bhat NP [address] [place] [address] Phone: tel: fax: [facility] [address] [place] [address] Phone: tel: fax: Referral ID Status Reason Start Date Expiration Date Visits Requested Visits Authorized [id number] New Request Continuity of Care 12/10/2024 12/10/2025 1 1 Encounter Details Date Type Department Care Team (Late st Contact Info) Description 12/10/2024 Results Follow-Up [facility] [address] [place] [address] Keya Bhat NP [address] [place] [address] Social History Tobacco Use Types Packs/Day Years [...] documented as of this encounter Care Teams Assistant Auditor Relationship Specialty Start Date End Date Keya Bhat NP [address] [place] [address] PCP - General Internal Medicine 10/04/21 documented as of this encounter
--- OUTSIDE RECORDS SUMMARY | 2024-12-15 18:05 | XMS_ITS | Clinical Summary ---
Author Organization [facility] Address [address] [place] [address] Phone Care Team Providers Care Orchid Hand Name Role Phone Keya Bhat Primary Care Provider [phone] Encounters Date Type Department Care Team Description 11/28/2024 Telephone [facility] [address] [place] [address] Keya Bhat 11/28/2024 Telephone [place] [address] [place] [address] Keya Bhat from Last 3 Months [...] Care Team (Late st Contact Info) Description 12/16/2024 8:50 AM EST Office Visit [facility] [address] [address] [facility] [address] [place] [phone] Jordon Case MD [address] [place] [address] [place] [address] Health Maintenance Due Date Last Done [...] patient's age to complete this topic Insurance [facility] Care Teams Orchid Hand Relationship Specialty Start Date End Date Keya Bhat [facility] [place] [address] PCP - General 05/13/24
== END 2024-12-15 08:05 | disposition home or self-care (01) ==
LOC: HO.LNP 08:04
PROVIDERS: Visit Provider Nurse Practitioner Family
DX: R10.9 Unspecified abdominal pain (principal); N39.0 Urinary tract infection, site not specified
CPT/HCPCS: 51798; 88112; 99212

== ENCOUNTER 2024-12-15 08:04 | Outpatient (AMB) | payer OTHER, SELFPAY ==
--- NOTE | 2024-12-15 08:04 | A.OFFVIS_ITS ---
Intake Visit Reasons: 5M US/labs Intake Note: Patient presents today for 5 mo follow up patient is still c/o Flank pain , and Frequent urination , Denies any Dysuria and hematuria due to menstrual cycle Imaging Completed: 10/07/24 Renal Ultrasound Urology Medications: none Antibiotic Allergy: none Blood Thinner: none Labs done 12/09/24 BUN: 9 Creatine 0.44 PVR: 10 mls Valve Setter Required: Yes Valve Setter Services: Valve Setter Offered & Declined Accompanied by: Spouse Allergies No Known Allergies Allergy (Verified 12/15/24 21:01) Medication List - Last Reconciled 12/15/24 by ERICA Sky-SARABJIT atorvastatin mg PO DAILY gabapentin 300 mg PO TID levonorgestrel-ethinyl estrad 0.15-0.03 mg (Altavera (28)) tabs PO DAILY sitagliptin phos-metformin 50-1,000 mg (Janumet) tabs PO HPI Comments Details: Greta is a 34-year-old Raquel speaking female patient who was accompanied by her significant other at today's office visit. She has a past medical history of hyperlipidemia type 2 diabetes, seasonal allergies, henoch-schonlein purpura nehritis, and abnormal liver enzymes. She presents to the office today for follow-up. In discussion with the patient today she reports to be doing and feeling well. She does report having had intermittent episodes of bilateral flank pain since her last office visit here approximately 6 months ago. Most recent renal imaging results reviewed with the patient and her today. 10/30 bilateral nephrolithiasis, 3 mm on the right, 5 mm on the left. Pelvicalyceal ectasia/mild hydronephrosis, bilaterally. 3.2 cm cyst, right kidney per radiology report. BUN: 12/30 9 Creatinine: 12/30 0.44 In office urinalysis results reviewed with the patient today 3+ microscopic hematuria however patient reports she is currently on her menses. Patient with a previous history of recurrent urinary tract infections. She denies having had any urinary tract infections and or UTI like symptoms since her last office visit. We did discussed nephrolithiasis and mild hydronephrosis as well as renal cysts. We did discussed further workup to include CT urogram and in office cystoscopy. Urine Cytology: 03/01 atypical urethral cells & 06/29 Negative for high-grade urothelial carcinoma. We discussed importance of management and diabetes for overall health and well- being. We discussed importance of adequate hydration relation to recurrent urinary tract infections as well as nephrolithiasis. We also discussed near future metabolic workup to include Litholink and labs. She denies nocturia, hematuria, dysuria, foul smelling urine, changes to urinary stream, fever, and or chills. PVR today 10 mL. She otherwise offers no other issues or concerns at this time. [facility] Medical History Right middle lobe pulmonary nodule Recurrent UTI Seasonal allergic rhinitis Controlled type 2 diabetes mellitus with complication, without long-term current use of insulin Rash Hematuria Henoch-Schonlein purpura nephritis Positive PPD, treated Dyslipidemia Immune to hepatitis B Abnormal liver enzymes Surgical History History of laparoscopic appendectomy Review of Systems Const All systems reviewed & are unremarkable except as noted in HPI and below Physical Exam Const General: cooperative, healthy appearing, comfortable, no acute distress, well developed, alert and awake Nutritional Appearance: overweight Orientation/consciousness: patient oriented x3 Limitations: language barrier HEENT Head: Yes normal to inspection, Yes normocephalic and Yes atraumatic Ears: hearing grossly normal bilaterally Eyes General: appearance normal, both eyes and all related structures Neck Neck: Yes normal visual inspection and Yes trachea midline Chest Chest palpation & inspection: normal inspection of the chest Resp Effort & Inspection: normal respiratory effort and able to speak in complete sentences Cardio Rate: regular rate GI Inspection: Yes normal to inspection General: Yes no CVA tenderness Back/Spine/Pelvis Back: no CVA tenderness Skin General skin exam: no rashes or lesions noted Neuro General: patient oriented x3 Extrem General: Yes normal to inspection Psych Appearance: grossly normal and well kempt Mental Status: mental status grossly normal Speech and movement: Normal speech and movement present and Clear speech present Affect: normal affect Attitude: cooperative Thought process: Normal thought process present Thought content: Normal thought content present Insight: Fair insight present (Psych) Judgement: Fair judgement present (Psych) Office Procedures Post Void Residual Post Residual Void Post Void Residual (PVR): 10 30484-[id number] Void Residual by ultrasound Results AMB Urinalysis, Automated UA Leukoctes 70 Spike/uL Last Edit by India Colon, [facility] on 12/15/24 08:19 UA Nitrite Negative Last Edit by India Colon, [facility] on 12/15/24 08:19 UA Urobilinogen 0.2 mg/dL Last Edit by India Colon, [facility] on 12/15/24 08:19 UA Protein 30 mg/dL Last Edit by [place], [facility] on 12/15/24 08:19 UA pH 5.5 Last Edit by [place], [facility] on 12/15/24 08:19 UA Blood 200 Nas/uL Last Edit by [facility], [facility] on 12/15/24 08:19 UA Specific [place] 1.025 Last Edit by [place], [facility] on 12/15/24 08:1 9 UA Ketone Negative Last Edit by [place], [facility] on 12/15/24 08:19 UA Bilirubin 0 mg/dL Last Edit by [place], [facility] on 12/15/24 08:19 UA Glucose 0 mg/dL Last Edit by [facility], [facility] on 12/15/24 08:19 Results Reviewed Results Reviewed: Laboratory Last Values Urine pH (Auto) 5.5 12/15/24 08:18 Specific [place] (Auto) 1.025 12/15/24 08:18 Urine Protein (Auto) 30 mg/dL 12/15/24 08:18 Glucose (UA)(Auto) 0 mg/dL 12/15/24 08:18 Urine Ketones (Auto) Negative 12/15/24 08:18 Urine Blood (Auto) 200 Nas/uL 12/15/24 08:18 Urine Nitrite (Auto) Negative 12/15/24 08:18 Urine Bilirubin (Auto) 0 mg/dL 12/15/24 08:18 Urine Urobilinogen (Auto) 0.2 mg/dL 12/15/24 08:18 Leukocyte Esterase (Auto) 70 Spike/uL 12/15/24 08:18 Date of Service: 10/07/24 Procedure(s): US renal BI FINDINGS: RIGHT KIDNEY: 11 x 6 x 6 cm (SAG x AP x TRV). Volume: 189 cc. Normal echotexture. Normal renal cortical thickness. Pelvicalyceal ectasia. There is a 3.2 cm anechoic lesion at the corticomedullary junction, midportion. There is a 3 mm hyperechoic structure at the corticomedullary junction of the lower pole. LEFT KIDNEY: 11 x 6 x 6 cm (SAG x AP x TRV). Volume: 185 cc. Normal echotexture. Normal renal cortical thickness. Pelvicalyceal ectasia. 5 mm hyperechoic structures in the corticomedullary junction midportion and lower pole. IMPRESSION: Bilateral nephrolithiasis. Pelvicalyceal ectasia/mild hydronephrosis, bilaterally. 3.2 cm cyst, right kidney.. Assessment & Plan Assessment & Plan (1) Nephrolithiasis: Code(s): N20.0 - Calculus of kidney Category: Medical (2) Flank pain: Code(s): R10.9 - Unspecified abdominal pain Category: Medical (3) Recurrent urinary tract infection: Code(s): N39.0 - Urinary tract infection, site not specified Category: Medical (4) Hydronephrosis: Code(s): N13.30 - Unspecified hydronephrosis Category: Medical (5) Renal cyst: Code(s): N28.1 - Cyst of kidney, acquired Category: Medical Plan In office urinalysis results reviewed with the patient today; as noted above; will send for urine cytology. PVR [address] urogram for further assessment evaluation. BUN and creatinine ordered for imaging. We did discussed the importance of adequate hydration relation to nephrolithiasis as well as overall health and well-being. We did discussed further workup in risks and benefits of these interventions. All questions were answered. We did discuss metabolic workup to include Litholink and labs. She currently denies any bothersome urinary issues. She reports be happy with current voiding parameters. Follow-up in 4-6 months with imaging and labs; or sooner with any issues, concerns, and or questions. Orders: Orders Blood Urea Nitrogen 12/09/24 R10.9 - Unspecified abdominal pain Urine Cytology Today N39.0 - Urinary tract infection, site not specified Blood Urea Nitrogen Today R39.15 - Urgency of urination Creatinine Today R39.15 - Urgency of urination CT urogram Today R31.0 - Gross hematuria Patient Instructions: The patient had an opportunity to ask questions regarding the treatment plan. All questions were answered. Physical exam, labs, and imaging were discussed and reviewed in detail. As well as risks, benefits, and discussion of treatment choices. No major barriers to understanding were identified. The patient expressed understanding and agreement with the above treatment plan. The patient was made aware they should contact our office by phone for worsening of their current condition, the appearance of new symptoms, or with any q uestions or concerns. Compliance is encouraged with any medications and follow up testing that is ordered. It is a privilege to be allowed the opportunity to participate in? your urological care.? Again, if you have any questions or concerns If you have any questions or concerns please do not hesitate to contact me. The office is [phone]. This note is constructed using voice recognition software. While every effort has been made to ensure accuracy ophthalmic surgeon errors may have been included. Yours sincerely, SARAH Sky Coding Level of Care Code Est Pt Level 3 (70672) Complex EM visit Add On G2211 Diagnoses Nephrolithiasis N20.0 Flank pain R10.9 Recurrent urinary tract infection N39.0 Hydronephrosis N13.30 Renal cyst N28.1 CPT Codes Post Residual Void - PVR CPT Code: 96681-Xgqw Void Residual by ultrasound ([id number])
--- OUTSIDE RECORDS SUMMARY | 2024-12-15 08:10 | XMS_ITS | Clinical Summary ---
Author Organization [facility] Address [address] [place] [address] Phone Care Team Providers Care Cash Applications Representative Name Role Phone Keya Bhat Primary Care Provider [phone] Encounters Date Type Department Care Team Description 11/28/2024 Telephone [facility] [address] [place] [address] Keya Bhat 11/28/2024 Telephone [facility] [address] [place] [address] Keya Bhat from Last 3 Months [...] Description 03/04/2025 8:50 AM EST Office Visit [facility] [address] [place] [address] Jordon Case MD [address] [place] [address] [address] [place] [address] Health Maintenance Due Date Last Done [...] patient's age to complete this topic Insurance [facility] [employer] [facility] [employer] Care Teams Cash Applications Representative Relationship Specialty Start Date End Date Keya Bhat [address] [place] [id number] PCP - General 05/13/24
--- OUTSIDE RECORDS SUMMARY | 2024-12-15 08:10 | XMS_ITS | Encounter Summary ---
Author Organization [facility] Address [address] [place] [address] Care Team Providers Care Field Advisor Name Role Phone Kyea Bhat NP Primary Care Provider [phone] Reason for Referral * Diabetes (Routine) - New Request Specialty Diagnoses / Procedures Referred By Contflavio t Referred To Contact Family Practice Diagnoses Uncontrolled type 2 diabetes mellitus with hypoglycemia, unspecified hypoglycemia coma status Keya Bhat NP [address] [place] [address] Phone: tel: fax: [facility] [address] [place] [address] Phone: tel: fax: Referral ID Status Reason Start Date Expiration Date Visits Requested Visits Authorized [id number] New Request Continuity of Care 12/10/2024 12/10/2025 1 1 Encounter Details Date Type Department Care Team (Late st Contact Info) Description 12/10/2024 Results Follow-Up [facility] [address] [place] [address] Keya Bhat NP [address] [place] [address] Social History Tobacco Use Types Packs/Day Years Used Date Smoking Tobacco: Never Smokeless Tobacco: Never Alcohol Use Standard Drinks/Week Comments No 0 (1 standard drink = 0.6 oz pur e alcohol) Social Connections Answer Date Recorded How often do you feel lonely or isolated from ose around you? 1 05/07/2024 Financial Resource [...] on file documented as of this encounter Plan of Treatment Scheduled Referrals Name Type Priority Associated Diagnoses Orde r Schedule REFERRAL TO DIABETES CLINIC Referral Routine Uncontrolled type 2 diabetes mellitus with hypoglycemia, unspecified hypoglycemia coma status Ordered: 12/10/2024 documented as of this encounter Visit Diagnoses Diagnosis Uncontrolled type 2 diabetes mellitus with hypoglycemia, unspecified hypoglycemia coma status- Primary documented in this encounter Additional Health Concerns Assessment Noted Time PHQ-9 Depression Total Score: 0 05/08/19 8:59 AM PDT A Depression follow-up plan has been documented for the patient 12/08/2024 4:32 PM PST PHQ-2 Depression Total Score: 0 05/08/19 8:59 AM PDT documented as of this encounter Care Teams Field Advisor Relationship Specialty Start Date End Date Keya Bhat NP [address] [place] [address] PCP - General Internal Medicine 10/04/21 documented as of this encounter
--- OUTSIDE RECORDS SUMMARY | 2024-12-15 08:10 | XMS_ITS | Clinical Summary ---
Author Organization [facility] Address [address] [place] [address] Care Team Providers Care Tree Faller Name Role Phone Keya Bhat NP Primary Care Provider + [phone] Source Comments PLEASE NOTE, if this patient [...] months 06/2022: see at [facility] with , [facility] UTI prevention, imagining to r/o structural [...] 12/23/2014 Overview (12/23/2014): Pt was treated in [place] with Rifampin for 4 months Dyslipidemia (high [...] complication, without long-term current use of insulin ([facility]) 09/03/2017 12/08/2024 Strep pharyngitis 04/04/2017 12/03/2017 Overview (04/04/2017): Positive Henoch-Schonlein purpura 01/31/2017 S/P laparoscopic appendectomy 08/10/2014 07/31/2024 Overview (08/10/2014): Done 08/01 at [facility] by Dr Eliazar Nicholson Pap smear for cervical cancer screening 01/16/2014 07/31/2024 Overview (01/16/2014): 11/20/13: NIL NO ECC's; per guidelines routine screening Next pap due: 11/2016(age 26yr)01/16/14 * pt does have elevated LFT's no etiology yet Encounters Date Type Department Care Team Description 12/10/2024 Results Follow-Up Dk [facility] [address] [place] [phone] Keya Bhat NP 12/08/2024 4:20 PM EST Office Visit Formerly [facility] [address] [place] [address] Keya Bhat NP Tiwari, Roshni from Last 3 Months Immunizations Immunization Administration Dates Next Due Flu, Preservative Free 12/21/2022,2021,11/20/2019,2018,12/03/2017,10/02/2016 Hep B, Adult/Adol ([id number]-[id number]-OPKZL/RECOMBIVAX-ADULT) 11/24/2013 Influenza (FLUBLOK),recombinant,injectable,pres ervative Free 12/08/2024 MODERNA [...] Foot Exam 12/22/2023 12/21/2022, 0 04/01/2019, 04/01/2019 Urine Albumin Creatinine Rat io Screening 09/27/2024 09/28/2023, 11/17/2020, 04/01/2019 Ped-[id number]-90 ( season) 2024 01/24/2022, 07/06/2020, 05/31/2020 Hemoglobin A1c 03/11/2025 12/09/2024, 07/07, 12/31/2023, Additional history exists Anxiety Screening 05/07/2025 05/07/2024 Relationship Safety Screening/Counseling 05/07/2025 05/07/2024, 12/21/2022, 08/19/2021, Additional history exists Annual Wellness (Adult): Indicated (All Coverage) 07/31/2025 07/31/2024, 12/21/2022, 11/03/2021, Additional history exists Retinopathy Screening 07/31/2025 07/31/2024 (Managed by Outside Provider), 03/09/2023, 02/23/2022 Tobacco Screening 07/31/2025 07/31/2024, , 05/17/2022 Hypertension Screening (#1) 12/08/2025 Lipid Screening 12/09/2025 12/09/2024, 12/06, 11/04/2021, Additional history exists Serum Creatinine 12/09/2025 12/09/2024, , 11/04/2021, Additional history exists Cervical Cancer Screening 05/29/2027 Pap + HPV [...] Associated Diagnosis Comments HEMOGLOBIN GLYCOSYLATED A1C Routine 12/09/2024 8:33 AM EST Uncontrolled type 2 diabetes mellitus with hypoglycemia, unspecified hypoglycemia coma status COMPREHENSIVE METABOLIC PANEL Routine 12/09/2024 8:33 AM EST Uncontrolled type 2 diabetes mellitus with hypoglycemia, unspecified hypoglycemia coma status LIPID PANEL Routine 12/09/2024 8:33 AM EST Uncontrolled type 2 diabetes mellitus with hypoglycemia, unspecified hypoglycemia coma status THINPREP IMAGING PAP, HPV MRNA E6/E7 RFLEX HPV 16,18/45 CT/NG Routine 05/28/2024 9:23 AM EDT Screening for HPV (human papillomavirus) MICROALBUMIN/CREATINI NE RATIO, URINE, RANDOM Routine 09/28/2023 4:11 PM EDT Controlled type 2 diabetes mellitus without complication, without long-term current use of insulin ([facility]) EYE EXAM 03/09/2023 3:00 AM EST ANTIBODY HIV-1&HIV-2 SINGLE RESULT Routine 04/01/2019 11:15 AM EST Encounter for general adult medical examination w/o abnormal findings HEPATITIS A,B,C PANEL Routine 10/16/2013 6:38 PM EDT Abnormal liver enzymes from Last 3 Months or Most Recently Relevant to Health Maintenance Results * (ABNORMAL) HEMOGLOBIN GLYCOSYLATED A1C Routine (12/09/2024 8:33 AM EST) HEMOGLOBIN A1C 8.6(H) <5.7 % 12/10/2024 5:15 AM EST [facility] Blood Blood / Unknown 12/09/2024 8 :33 AM EST 12/10/2024 3:37 AM EST [facility] - 12/10/2024 5:18 AM EST FASTING:YES For someone without known diabetes, a hemoglobin A1c value of 6.5% or greater indicates that they may have diabetes and this should be confirmed with a follow-up test. . For someone with known diabetes, a value <7% indicates that their diabetes is well controlled and a value greater than or equal to 7% indicates suboptimal control. A1c targets should be individualized based on duration of diabetes, age, comorbid conditions, and other considerations. . Currently, no consensus exists regarding use of hemoglobin A1c for diagnosis of diabetes for children. . us Keya Bhat NP LAB - BLOOD DRAW Final Resul t [facility] [address] [place] [id number], [facility] [address] [address] * (ABNORMAL) LIPID PANEL Routine (12/09/2024 8:33 AM EST) [facility] CHOLESTEROL, TOTAL 85 <200 mg/dL 12/10/2024 7:29 AM EST [facility] HDL CHOLESTEROL 32(L) > OR = 50 mg/dL 12/10/2024 7:29 AM EST [facility] TRIGLYCERIDES 114 <150 mg/dL 12/10/2024 7:29 AM EST [facility] LDL-CHOLESTEROL 33 mg/dL (calc) 12/10/2024 7:29 AM EST [facility] CHOL/HDLC RATIO 2.7 <5.0 (calc) 12/10/2024 7:29 AM EST [facility] NON-HDL CHOLESTEROL 53 <130 mg/dL (calc) 12/10/2024 7:29 AM [facility] [facility] Blood Blood / Unknown 12/09/2024 8 :33 AM EST 12/10/2024 5:55 AM EST [facility] - 12/10/2024 7:31 AM EST FASTING:YES Reference range: <100 . Desirable range <100 mg/dL for primary prevention; <70 mg/dL for patients with CHD or diabetic patients with > or = 2 CHD risk factors. . LDL-C is now calculated using the Kings-Hewitt calculation, which is a validated novel method providing better accuracy than the Friedewald equation in the estimation of LDL-C. Kings SS et al. EMILY. 2013;310(19): 2612-6026 (http://education.[employer]/faq/NTT878) For patients with diabetes plus 1 major ASCVD risk factor, treating to a non-HDL-C goal of <100 mg/dL (LDL-C of <70 mg/dL) is considered a therapeutic option. Keya Bhat NP LAB - BLOOD DRAW Final Resul t [facility] [address] [address], [facility] [address] [address] * (ABNORMAL) COMPREHENSIVE METABOLIC PANEL Routine (12/09/2024 8:33 AM EST) GLUCOSE 142(H) 65 - 99 mg/dL 12/10/2024 7:29 AM EST [facility] UREA NITROGEN (BUN) 9 7 - 25 mg/dL 12/10/2024 7:29 AM EST [facility] CREATININE (blood) 0.28(L) 0.50 - 0.97 mg/dL 12/10/2024 7:29 AM EST [facility] EGFR 145 > OR = 60 mL/min/1. 73m2 12/10/2024 7:29 AM EST [facility] BUN/CREATININE RATIO 32(H) 6 - 22 (calc) 12/10/2024 7:29 AM EST [facility] SODIUM 133(L) 135 - 146 mmol/L 12/10/2024 7:29 AM EST [facility] POTASSIUM 4.0 3.5 - 5.3 mmol/L 12/10/2024 7:29 AM EST [facility] CHLORIDE 101 98 - 110 mmol/L 12/10/2024 7:29 AM EST [facility] CARBON DIOXIDE 25 20 - 32 mmol/L 12/10/2024 7:29 AM EST [facility] CALCIUM 9.2 8.6 - 10.2 mg/dL 12/10/2024 7:29 AM EST [facility] PROTEIN, TOTAL 7.2 6.1 - 8.1 g/dL 12/10/2024 7:29 AM EST [facility] ALBUMIN 3.7 3.6 - 5.1 g/dL 12/10/2024 7:29 AM EST [facility] GLOBULIN 3.5 1.9 - 3.7 g/dL (calc) 12/10/2024 7:29 AM EST [facility] ALBUMIN/GLOBULI N RATIO 1.1 1.0 - 2.5 (calc) 12/10/2024 7:29 AM EST [facility] BILIRUBIN, TOTAL 0.9 0.2 - 1.2 mg/dL 12/10/2024 7:29 AM EST [facility] ALKALINE PHOSPHATASE 87 31 - 125 U/L 12/10/2024 7:29 AM EST [facility] AST 39(H) 10 - 30 U/L 12/10/2024 7:29 AM EST [facility] ALT 41(H) 6 - 29 U/L 12/10/2024 7:29 AM EST [facility] Blood Blood / Unknown 12/09/2024 8 :33 AM EST 12/10/2024 5:55 AM EST Narrative [facility] - 12/10/2024 7:31 AM EST FASTING:YES . Fasting reference interval . For someone without known diabetes, a glucose value >125 mg/dL indicates that they may have diabetes and this should be confirmed with a follow-up test. . us Keya Bhat NP LAB - BLOOD DRAW Final Resul t [facility] [address] [place] [id number], [facility] [address] [place] [phone] * THINPREP IMAGING PAP, HPV MRNA E6/E7 RFLEX HPV 16,18/45 CT/NG (05/28/2024 9:23 AM EDT) CHLAMYDIA TRACHOMATIS RNA, TMA NOT DETECTED NOT DETECTED [facility] NEISSERIA GONORRHOEAE RNA, TMA NOT DETECTED NOT DETECTED [facility] COMMENT [facility] CLINICAL INFORMATION See Note [facility] Comment:None given LMP See Note [facility] Comment:NONE GIVEN PREV. PAP See Note [facility] Comment:NONE GIVEN PREV. BX See Note [facility] Comment:NONE GIVEN SOURCE See Note [facility] Comment:Cervix STATEMENT OF ADEQUACY See Note [facility] Comment: Satisfactory for evaluation. Endocervical/transformation zone component present. INTERPRETATION/RESU LT See Note [facility] Comment: Cytology Results: Negative for intraepithelial lesion or malignancy. COMMENT See Note [facility] Comment: This Pap test has been evaluated with computer assisted technology. MANAGEMENT TRAINEE MARKETING See Note [facility] Comment: CMG, CT(ASCP) CT screening location: [address] [address] COMMENT [facility] HPV MRNA E6/E7 Not Detected Not Detected [facility] Comment: Methodology: Commissioned Sales Associate-Mediated Amplification This assay detects E6/E7 viral messenger RNA (mRNA) from 14 high-risk HPV types (16,18,31,33,35,39,45,51,52,56,58,59,66,68). Cervical sources are required for HPV testing. If a vaginal source from a patient who has had a total hysterectomy with removal of cervix was submitted, please contact the testing laboratory for alternative testing options. For additional information, please refer to http://Socratic.[employer]/faq/SPU618m7 (This link if provided for information/ educational purposes only.) Swab Cervix uteri structure / Unknown 05/28/2024 9:23 AM EDT 05/29/2024 5:06 AM EDT Narrative [facility] - 05/30/2024 5:24 PM EDT EXPLANATORY NOTE: [...] test SurePath(TM) specimens have been determined by [facility]. The modifications have not been cleared or approved by the FDA. This assay has been validated pursuant to the CLIA regulations and is used for clinical purposes. For additional information, please refer to https://education.[employer]/faq/MRD407 (This link is being provided for information/ educational purposes only.) us Terry Couch MD LAB - PATHOLOGY AND CYTOLOGY AM BULATORY Final Result Performing Organization Address [facility] Co de Phone Number [facility] [address] [address], [facility] [address] [address] * MICROALBUMIN/CREATININE RATIO, URINE, RANDOM (09/28/2023 4:11 PM EDT) CREATININE, RANDOM URINE 119 20 - 275 mg/dL [facility] MICROALBUMIN 3.5 mg/dL Standardized Safety [facility] Comment: Reference Range Not established MICROALBUMIN/CREA TININE RATIO, RANDOM URINE 29 <30 mg/g creat [facility] Comment: The ADA defines abnormalities in [...] PM EDT 09/28/2023 4:11 PM EDT Narrative [facility] - 10/04/2023 2:37 AM EDT FASTING:NO us Keya Bhat NP LAB URINE AMBULATORY Final R esult Performing Organization Address [facility] Co de Phone Number [facility] [address] [address], [facility] [address] [address] * EYE EXAM (03/09/2023 3:00 AM EST) 03/09/2023 3:00 AM EST us Keya Bhat WASH OIL COOLER OPERATOR OTHER Final Result * HIV-1 & HIV-2 ANTIBODIES (04/01/2019 11:15 AM EST) Pathologist [facility] HIV 1 AND 2 ANTIBODY SCREEN NEGATIVE NEGATIVE [facility] Comment: This assay is a [...] AM EST 04/01/2019 11:31 AM EST [facility] - 04/01/2019 6:50 PM EST [employer], [place] [address] Frontend Engineer - Josefina Peterson MD PT ID [id number] ORD# [id number] Eli BRUMFIELDP LAB - BLOOD DRAW Final Resu lt Performing Organization Address [facility] [place] [address], * (ABNORMAL) HEPATITIS A,B,C PANEL (10/16/2013 6:38 PM EDT) [facility] HEPATITIS B SURFACE ANTIBODY POSITIVE(A) NEGATIVE [facility] HEPATITIS B SURFACE ANTIGEN NEGATIVE NEGATIVE [facility] HEPATITIS C VIRUS ANTIBODY NEGATIVE NEGATIVE [facility] HEPATITIS B CORE ANTIBODY NEGATIVE NEGATIVE [facility] HEPATITIS A ANTIBODY TOTAL POSITIVE(A) NEGATIVE [facility] Blood specimen (specimen) Blood / Unknown 10/16/2013 6:38 PM EDT 10/16/2013 6:57 PM EDT [facility] - 10/16/2013 10:16 PM EDT [facility] [employer] [address] [place] [address] PT ID [id number] ORD# [id number] Fernando Mcbride MD LAB - BLOOD DRAW Edited Result - Final Performing Organization Address [facility] [place] [address], from Last 3 Months or Most Recently Relevant to Health Maintenance Insurance [employer] Member Subscriber Plan / Payer (Ef fective 2023-Present) Name:Greta Dove Relation to Subscriber:Self Name:Greta Dove Payer ID:[id number] Group ID:Not on file Type:Indemnity Address: [facility] [address] [place] [address] Care Teams Tree Faller Relationship Specialty Start Date End Date Keya Bhat NP [address] [place] [address] PCP - General Internal Medicine 10/04/21
== END 2024-12-15 08:40 | disposition home or self-care (01) ==
LOC: HO.HUSH 08:05
PROVIDERS: Visit Provider Nurse Practitioner Family
DX: N20.0 Calculus of kidney (principal); R10.9 Unspecified abdominal pain; N39.0 Urinary tract infection, site not specified; N13.30 Unspecified hydronephrosis; N28.1 Cyst of kidney, acquired
CPT/HCPCS: 99213